=== PATIENT | female | born 1965 | race Caucasian/White ===

== ENCOUNTER → 2016-10-20 | Outpatient (CLI) | payer MEDICARE, MEDICAID ==
[~2016-10-20] MED LIST: /CELE20CA OR; /DULO30CA OR; ACET50TA PO; ALBU17IN INH; AMBI10TA OR; ATOR80TA14 PO; CETI10TA OR; CHLO25TA3 PO; CIPR250T2 PO; CORE25TA OR; COREG; DIAZ5TAB OR; DIAZ5TAB PO; FENT12PA TOP; GEOD20CA14 OR; IMDU60TA; LABETALOL; LASI20TA; LISI20TA5; LISI20TA5 OR; LYRI150C OR; NORC5TAB PO; OMEP20CA3 PO; OXYC-208 PO; OXYC-517 PO; OXYC5CAP28 PO; PERC7.5T8; PRENATAL VITAMIN; PROA1AER IN; SALI0.653; SPIR25TA2; SPIR25TA2 OR; VICO5TAB16 PO; [UNRECOGNIZED DRUG - CODE] PO; [UNRECOGNIZED DRUG - OTHER] TOP; ambien OR; chlorthalidone PO; flonase; lamictal PO; lamotrigine OR; loratadine OR; nucynta PO
--- NOTE | 2016-10-21 01:23 | ECWPNPC ---
PATIENT NAME: SINGH RAVI : 1965 GENDER: FEMALE VISIT DATE: 10/20/2016 DISCHARGE DATE: 10/20/16 1145 VISIT LOCKED DATE TIME: PHYSICIAN: EDA KHAN PHYSICIAN PAGER NO: [phone] RESOURCE: EDA KHAN REASON FOR APPOINTMENT 1. FOLLOWUP-BACK HISTORY OF PRESENT ILLNESS HISTORY OF PRESENT ILLNESS: HERE FOR F/U OF CHRONIC LBP AND RIGHT LEG PAIN.RATING PAIN VAS 5/10.USING FENTANYL PATCH 25MCG Q72H, LYRICA 200MG TID AND OXYCODONE 5MG PRN WITH MDD2.RECENT URINE TOX. REVIEWED TODAY AND WNL.BRINGS MEDICINE INTO CLINIC WHICH IS APPROPRIATE FOR WHAT WAS DISPENSED.FINDS MEDICINE EFFECTIVE AT REDUCING PAIN AND KEEPING HER COMFORTABLE.DENIES ADVERSE EFFECTS WITH MEDICATION. PAIN THE PATIENT DESCRIBES THE PAIN... THE PATIENT DESCRIBES THE PAIN... THE PATIENT DESCRIBES THE PAIN... THE PATIENT DESCRIBES THE PAIN... FALL RISK SCREENING: SCREENING :NO FALLS IN THE PAST YEAR CURRENT MEDICATIONS TAKING ALBUTEROL SULFATE HFA 108 (90 BASE) MCG/ACT AEROSOL SOLUTION 2 PUFFS INHALATION EVERY 4 HRS NEEDED, NOTES: NONE TAKING ATORVASTATIN CALCIUM 80 MG TABLET 1 TABLET ORALLY ONCE A DAY, NOTES: 2 WEEKS TAKING COREG 25 MG TABLET [address] SOUSA ORALLY TWICE A DAY, NOTES: 12-25-15699 TAKING LISINOPRIL 20 MG TABLET [address] SOUSA ORALLY TWICE DAILY, NOTES: 12-24-15699 TAKING SPIRONOLACTONE 25 MG TABLET [address] SOUSA ORALLY ONCE A DAY, NOTES: 12-24-15699 TAKING CHLORTHALIDONE 25 MG TABLET 1/2 TABLET IN THE MORNING DR SOUSA ORALLY ONCE A DAY, NOTES: 12-25-15699 TAKING FLONASE 50 MCG/ACT SUSPENSION 1 SPRAY IN EACH NOSTRIL NASALLY ONCE A DAY TAKING HYDROXYZINE PAMOATE 50 MG CAPSULE 1 CAPSULE NEEDED ORALLY EVERY 6 HRS NEEDED TAKING GABAPENTIN 300 MG CAPSULE 1 CAPSULE ORALLY THREE TIMES A DAY TAKING LORATADINE 10 MG TABLET TAKE ONE TABLET BY MOUTH ONCE DAILY TAKING LYRICA 200 MG CAPSULE 1 CAPSULE ORALLY THREE TIMES DAILY...MDD 3, NOTES: 12-25-15699 TAKING CANE - MISCELLANEOUS DIRECTED DX=M54.16 DIRECTED TAKING OMEPRAZOLE 20 MG CAPSULE DELAYED RELEASE TAKE ONE CAPSULE BY MOUTH 30 MINUTES BEFORE A MEAL ONCE DAILY TAKING OXYCODONE HCL 5 MG TABLET 1 ORALLY Q6H MDD 2, NOTES: 12-24-15 200 TAKING FENTANYL 25 MCG/HR PATCH 72 HOUR 1 PATCH TO SKIN TRANSDERMAL MDD 1 PATCH Q72H =MDD, NOTES: 12-24-151999 TAKING OMEPRAZOLE 20 MG CAPSULE DELAYED RELEASE 1 CAPSULE 30 MIN BEFORE MEAL ORALLY ONCE A DAY, NOTES: 12-25-15 0700 NOT-TAKING TENS UNIT DIRECTED NOT-TAKING OMEPRAZOLE 20 MG UNSPECIFIED 1 CAPSULE 30 MIN BEFORE MEAL ORALLY ONCE A DAY PAST MEDICAL HISTORY HYPERTENSION CHRONIC BACK PAIN, LUMBAR -DEG DISC DISEASE, DEPRESSION ANXIETY ALLERGIES, SEASONAL, ENVIRONMENTAL POST PARTEM CONGESTIVE HEART FAILURE 2009 - DR SOUSA ECHO 08/02 - NL OBESITY POOR DENTITION CHRONIC LEUKOCYTOSIS () ELEVATED PTT FIBROMYALGIA CARPAL TUNNEL FACTOR 8 DEFICIENCY ALLERGIES CODEINE SULFATE: HIVES: ALLERGY BUTRAN TRANSDERMAL PATCH: HIVES: ALLERGY SOCIAL HISTORY GENERAL: TOBACCO USE ARE YOU A:NONSMOKER LEARNING BARRIERS / SPECIAL NEEDS ORIENTED TO PLAN OF CARE: PATIENT, PAIN MANAGEMENT PATIENT, ORIENTED TO PLAN OF CARE: PATIENT, PAIN MANAGEMENT PATIENT. NEW PATIENT PAIN DIARY TODAY'S VISITNOTES FROM 0-10, WHAT LEVEL IS YOUR PAIN TODAY?0 PAIN CLINIC PFS, CLERGY, PUBLIC HEALTH REFERRALS PFS REFERRAL NEEDED?NO CLERGY REFERRAL NEEDED?NO PUBLIC HEALTH REFERRAL NEEDED?NO WAS THE PROVIDER NOTIFIED OF ANY PERTINENT INFO?NO PFS REFERRAL NEEDED?NO CLERGY REFERRAL NEEDED?NO PUBLIC HEALTH REFERRAL NEEDED?NO WAS THE PROVIDER NOTIFIED OF ANY PERTINENT INFO?NO REVIEW OF SYSTEMS CONSTITUTIONAL: ANY CHANGE IN YOUR MEDICAL CONDITION? NO . CHILLS NO . FEVER NO . INFECTION: DO YOU HAVE NEW INFECTIONS? NO . DO YOU HAVE HISTORY OF MRSA? NO . MUSCULOSKELETAL: ANY NEW PATTERNS OF PAIN OR NUMBNESS? NO . GASTROENTEROLOGY: ANY NEW CHANGE IN BOWEL CONTROL? NO . GENITOURINARY: ANY NEW CHANGE IN BLADDER CONTROL? NO . IS THERE A CHANCE YOU COULD BE ? NO . HEMATOLOGY/LYMPH: DO YOU TAKE ANY BLOOD THINNERS? (FOR EXAMPLE- COUMADIN, PLAVIX, AGGRENOX, PLATEL, PRADAXA, OR XARELTO) NO . WHEN WAS YOUR LAST DOSE? DATE: TIME: . NEUROLOGY: HAVE YOU FALLEN IN THE PAST 6 MONTHS? NO . ANY NEW EXTREMITY NUMBNESS OR WEAKNESS? NO . CARDIOLOGY: DO YOU HAVE A PACEMAKER OR DEFIBRILLATOR? NO . RESPIRATORY: HAVE YOU BEEN SICK IN THE PAST WEEK? NO . FEVER NO . FLU LIKE SYMPTOMS? NO . COUGH NO . INTEGUMENTARY: DO YOU HAVE ANY RASHES OR OPEN SORES? NO . ALLERGIC/IMMUNO: ARE YOU ALLERGIC TO SHELLFISH OR IV DYE? NO . ANY NEW ALLERGIES? NO . PSYCHIATRIC: DO YOU HAVE THOUGHTS OF HURTING YOURSELF OR SOMEONE ELSE? NO . ARE YOU ABUSED, NEGLECTED, OR IN AN UNSAFE ENVIRONMENT? NO . ENDOCRINOLOGY: ARE YOU DIABETIC? NO . OTHER: DO YOU NEED ANY PRESCRIPTIONS? NO . IF YES, PLEASE LIST: ____ . ANY NEW PROBLEMS WITH YOUR MEDICATIONS? NO . WHEN DID YOU LAST EAT? ____ . WHEN DID YOU LAST DRINK? ____ . WHAT DID YOU LAST DRINK? ____ . NAME OF PERSON DRIVING YOU HOME? ____ . DO YOU HAVE ANY OTHER QUESTIONS OR CONCERNS NO . REVIEWED BY: PROVIDER: EDA MCCLELLAN . VITAL SIGNS WT 183 LBS, HT 64.5 IN, BMI 30.92 INDEX, BP 140/78 MM HG, HR 71 /MIN, RR 18 /MIN, TEMP 97 F,4 F, OXYGEN SAT % 96, REVIEWED BY: KG. EXAMINATION GENERAL EXAMINATION: LUNGS:LUNG SOUNDS ARE CLEAR. HEART:HEART RATE REGULAR. MUSCULOSKELETAL:*. MUSCULOSKELETAL:*, MUSCLE STRENGTH TESTING 2/5 RIGHT,5/5 LEFT ., PALPATION: POSITIVE FOR PAIN OVER L/S SPINE. POSITIVE FOR PAIN OVER L/S PARSPINALS. RANGE OF MOTION OF SPINE W INCREASE PAIN. DIAGNOSTIC: . ASSESSMENTS POST LAMINECTOMY SYNDROME - M96.1 (PRIMARY) CHRONIC PRESCRIPTION OPIATE USE - Z79.891 TREATMENT POST LAMINECTOMY SYNDROME REFILL OXYCODONE HCL TABLET, 5 MG, 1, ORALLY, Q6H MDD 2, 30 DAY(S), 60, REFILLS 0, NOTES: 12-24-15 200 REFILL FENTANYL PATCH 72 HOUR, 25 MCG/HR, 1 PATCH TO SKIN, TRANSDERMAL, MDD 1 PATCH Q72H =MDD, 30 DAY(S), 10, REFILLS 0, NOTES: 12-24-151999 PROCEDURE CODES FA211 ESTABILISHED PATIENT [facility] FACILITY CHARGE G8730 PAIN ASSESS POS TOOL F/U PLAN DOC G8427 DOC MEDS VERIFIED W/PT OR RE FOLLOW UP 2 MONTHS ELECTRONICALLY SIGNED BY VY LAL ON 10/20/2016 AT 11:44 AM EST DISCLAIMER : THIS IS A VISIT SUMMARY EXTRACTED FROM THE [employer] CHART. IT IS NOT A COPY OF THE [employer] PROGRESS NOTE. TARIK
== END ==
LOC: M PAIN 11:00
PROVIDERS: ATTEND Nurse Practitioner Family
DX: M96.1 Postlaminectomy syndrome, not elsewhere classified (principal); M54.5 Low back pain; M79.604 Pain in right leg; G89.29 Other chronic pain; Z79.891 Long term (current) use of opiate analgesic; Z79.899 Other long term (current) drug therapy; I10 Essential (primary) hypertension; F32.9 Major depressive disorder, single episode, unspecified; F41.9 Anxiety disorder, unspecified; E66.9 Obesity, unspecified; I50.9 Heart failure, unspecified; M79.7 Fibromyalgia; D72.829 Elevated white blood cell count, unspecified; D68.4 Acquired coagulation factor deficiency; Z88.5 Allergy status to narcotic agent; Z88.6 Allergy status to analgesic agent

== ENCOUNTER → 2017-01-06 | Outpatient (CLI) | payer MEDICARE, MEDICAID ==
[~2017-01-06] MED LIST changes: +CYCL10TA PO
--- NOTE | 2017-01-15 23:41 | ECWPNPC ---
PATIENT NAME: SINGH RAVI : 1965 GENDER: FEMALE VISIT DATE: 01/06/2017 DISCHARGE DATE: 01/06/17 1045 VISIT LOCKED DATE TIME: PHYSICIAN: EDA KHAN PHYSICIAN PAGER NO: [phone] RESOURCE: EDA KHAN REASON FOR APPOINTMENT 1. BACK HISTORY OF PRESENT ILLNESS HISTORY OF PRESENT ILLNESS: HERE FOR F/U OF CHRONIC LBP AND RIGHT LEG PAIN.RATING PAIN VAS 6/10.USING FENTANYL PATCH 25MCG Q72H, LYRICA 200MG TID AND OXYCODONE 5MG PRN WITH MDD2.BRINGS MEDICINE INTO CLINIC WHICH IS APPROPRIATE FOR WHAT WAS DISPENSED.FINDS MEDICINE EFFECTIVE AT REDUCING PAIN AND KEEPING HER COMFORTABLE.DENIES ADVERSE EFFECTS WITH MEDICATION. PAIN THE PATIENT DESCRIBES THE PAIN... THE PATIENT DESCRIBES THE PAIN... THE PATIENT DESCRIBES THE PAIN... THE PATIENT DESCRIBES THE PAIN... THE PATIENT DESCRIBES THE PAIN... FALL RISK SCREENING: SCREENING :NO FALLS IN THE PAST YEAR CURRENT MEDICATIONS TAKING ALBUTEROL SULFATE HFA 108 (90 BASE) MCG/ACT AEROSOL SOLUTION 2 PUFFS INHALATION EVERY 4 HRS NEEDED TAKING ATORVASTATIN CALCIUM 80 MG TABLET 1 TABLET ORALLY ONCE A DAY TAKING COREG 25 MG TABLET [address] SOUSA ORALLY TWICE A DAY TAKING SPIRONOLACTONE 25 MG TABLET [address] SOUSA ORALLY ONCE A DAY TAKING CHLORTHALIDONE 25 MG TABLET 1/[address]T IN THE MORNING [address] SOUSA ORALLY ONCE A DAY TAKING FLONASE 50 MCG/ACT SUSPENSION 1 SPRAY IN EACH NOSTRIL NASALLY ONCE A DAY TAKING HYDROXYZINE PAMOATE 50 MG CAPSULE 1 CAPSULE NEEDED ORALLY EVERY 6 HRS NEEDED TAKING GABAPENTIN 300 MG CAPSULE 1 CAPSULE ORALLY THREE TIMES A DAY TAKING CANE - MISCELLANEOUS DIRECTED DX=M54.16 DIRECTED TAKING OMEPRAZOLE 20 MG CAPSULE DELAYED RELEASE 1 CAPSULE 30 MIN BEFORE MEAL ORALLY ONCE A DAY TAKING LISINOPRIL 20 MG TABLET [address] SOUSA ORALLY TWICE DAILY TAKING LORATADINE 10 MG TABLET TAKE ONE TABLET BY MOUTH ONCE DAILY ORALLY DAILY TAKING OXYCODONE HCL 5 MG TABLET 1 ORALLY Q6H MDD 2 TAKING FENTANYL 25 MCG/HR PATCH 72 HOUR 1 PATCH TO SKIN TRANSDERMAL MDD 1 PATCH Q72H =MDD TAKING LYRICA 200 MG CAPSULE 1 CAPSULE ORALLY THREE TIMES DAILY...MDD 3 NOT-TAKING OMEPRAZOLE 20 MG CAPSULE DELAYED RELEASE TAKE ONE CAPSULE BY MOUTH 30 MINUTES BEFORE A MEAL ONCE DAILY NOT-TAKING TENS UNIT DIRECTED NOT-TAKING OMEPRAZOLE 20 MG UNSPECIFIED 1 CAPSULE 30 MIN BEFORE MEAL ORALLY ONCE A DAY MEDICATION LIST REVIEWED AND RECONCILED WITH THE PATIENT PAST MEDICAL HISTORY HYPERTENSION CHRONIC BACK PAIN, LUMBAR -DEG DISC DISEASE, DEPRESSION ANXIETY ALLERGIES, SEASONAL, ENVIRONMENTAL POST PARTEM CONGESTIVE HEART FAILURE 2009 - DR SOUSA ECHO 08/02 - NL OBESITY POOR DENTITION CHRONIC LEUKOCYTOSIS ( - ) ELEVATED PTT FIBROMYALGIA CARPAL TUNNEL FACTOR 8 DEFICIENCY ALLERGIES CODEINE SULFATE: HIVES: ALLERGY BUTRAN TRANSDERMAL PATCH: HIVES: ALLERGY SOCIAL HISTORY GENERAL: PAIN CLINIC PFS, CLERGY, PUBLIC HEALTH REFERRALS CLERGY REFERRAL NEEDED?NO WAS THE PROVIDER NOTIFIED OF ANY PERTINENT INFO?NO PFS REFERRAL NEEDED?NO PUBLIC HEALTH REFERRAL NEEDED?NO PATIENT: ____. REVIEW OF SYSTEMS CONSTITUTIONAL: ANY CHANGE IN YOUR MEDICAL CONDITION? NO . CHILLS NO . FEVER NO . INFECTION: DO YOU HAVE NEW INFECTIONS? NO . DO YOU HAVE HISTORY OF MRSA? NO . MUSCULOSKELETAL: ANY NEW PATTERNS OF PAIN OR NUMBNESS? NO . GASTROENTEROLOGY: ANY NEW CHANGE IN BOWEL CONTROL? NO . GENITOURINARY: ANY NEW CHANGE IN BLADDER CONTROL? NO . IS THERE A CHANCE YOU COULD BE ? NO . HEMATOLOGY/LYMPH: DO YOU TAKE ANY BLOOD THINNERS? (FOR EXAMPLE- COUMADIN, PLAVIX, AGGRENOX, PLATEL, PRADAXA, OR XARELTO) NO . WHEN WAS YOUR LAST DOSE? DATE: TIME: . NEUROLOGY: HAVE YOU FALLEN IN THE PAST 6 MONTHS? NO . ANY NEW EXTREMITY NUMBNESS OR WEAKNESS? NO . CARDIOLOGY: DO YOU HAVE A PACEMAKER OR DEFIBRILLATOR? NO . RESPIRATORY: HAVE YOU BEEN SICK IN THE PAST WEEK? NO . FEVER NO . FLU LIKE SYMPTOMS? NO . COUGH NO . INTEGUMENTARY: DO YOU HAVE ANY RASHES OR OPEN SORES? NO . ALLERGIC/IMMUNO: ARE YOU ALLERGIC TO SHELLFISH OR IV DYE? NO . ANY NEW ALLERGIES? NO . PSYCHIATRIC: DO YOU HAVE THOUGHTS OF HURTING YOURSELF OR SOMEONE ELSE? NO . ARE YOU ABUSED, NEGLECTED, OR IN AN UNSAFE ENVIRONMENT? NO . ENDOCRINOLOGY: ARE YOU DIABETIC? NO . OTHER: DO YOU NEED ANY PRESCRIPTIONS? YES . IF YES, PLEASE LIST: ?LYRICA . ANY NEW PROBLEMS WITH YOUR MEDICATIONS? NO . WHEN DID YOU LAST EAT? ____ . WHEN DID YOU LAST DRINK? ____ . WHAT DID YOU LAST DRINK? ____ . NAME OF PERSON DRIVING YOU HOME? ____ . DO YOU HAVE ANY OTHER QUESTIONS OR CONCERNS NO . REVIEWED BY: PROVIDER: EDA MCCLELLAN . VITAL SIGNS WT 180 LBS, HT 64.5 IN, BMI 30.42 INDEX, BP 117/62 MM HG, HR 78 /MIN, RR 18 /MIN, TEMP 98.1 F, OXYGEN SAT % 97%, REVIEWED BY: DONE AT 1017. EXAMINATION GENERAL EXAMINATION: LUNGS:LUNG SOUNDS ARE CLEAR. HEART:HEART RATE REGULAR. MUSCULOSKELETAL:*. MUSCULOSKELETAL:*, MUSCLE STRENGTH TESTING 2/5 RIGHT,5/5 LEFT ., PALPATION: POSITIVE FOR PAIN OVER L/S SPINE. POSITIVE FOR PAIN OVER L/S PARSPINALS. RANGE OF MOTION OF SPINE W INCREASE PAIN. DIAGNOSTIC: . ASSESSMENTS POST LAMINECTOMY SYNDROME - M96.1 (PRIMARY) CHRONIC PRESCRIPTION OPIATE USE - Z79.891 TREATMENT POST LAMINECTOMY SYNDROME REFILL OXYCODONE HCL TABLET, 5 MG, 1, ORALLY, Q6H MDD 2, 30 DAY(S), 60, REFILLS 0 REFILL FENTANYL PATCH 72 HOUR, 25 MCG/HR, 1 PATCH TO SKIN, TRANSDERMAL, MDD 1 PATCH Q72H =MDD, 30 DAY(S), 10, REFILLS 0 REFILL LYRICA CAPSULE, 200 MG, 1 CAPSULE, ORALLY, THREE TIMES DAILY...MDD 3, 30 DAY(S), 90, REFILLS 2 NOTES: ISTOP REGISTRY REVIEWED AND DEMNOSTRATES COMPLLIANCE. BRINGS IN MEDICATIONS WHICH IS APPROPRIATE FOR WHAT WAS DISPENSED. RECENT URINE TOXICOLOGY REVIEWED. NO UNAUTHORIZED MEDICATIONS. NO ILLICIT SUBSTANCES AND PRESCRIBED MEDICATIONS WERE PRESENT. , RISKS AND BENEFITS OF NARCOTIC/OPIOD MEDICATIONS WERE REVIEWED WITH PATIENT - THIS INCLUDES BUT IS NOT LIMITED TO RISK OF DEPENDANCE/DEVELOPMENT OF ADDICTION, MOOD DISTURBANCE AND DEPRESSION, OSTEOPOROSIS, HORMONAL AND LABIDAL CHANGES, RESPIRATORY DEPRESSION AND . PATIENT IS ADVISED NOT TO DRIVE WHILE ON THESE MEDICATIONS.URINETOX. TODAY. PROCEDURE CODES G8730 PAIN ASSESS POS TOOL F/U PLAN DOC G8427 DOC MEDS VERIFIED W/PT OR RE FA211 ESTABILISHED PATIENT [facility] FACILITY CHARGE DISPOSITION & COMMUNICATION FOLLOW UP 2 MONTHS ELECTRONICALLY SIGNED BY VY LAL ON 01/15/2017 AT 04:57 PM EDT DISCLAIMER : THIS IS A VISIT SUMMARY EXTRACTED FROM THE [employer] CHART. IT IS NOT A COPY OF THE [employer] PROGRESS NOTE. TARIK
== END | disposition home or self-care (01) ==
LOC: M PAIN 10:20
PROVIDERS: ATTEND Nurse Practitioner Family
DX: G89.29 Other chronic pain (principal); M96.1 Postlaminectomy syndrome, not elsewhere classified; I10 Essential (primary) hypertension; F33.9 Major depressive disorder, recurrent, unspecified; F41.9 Anxiety disorder, unspecified; M79.7 Fibromyalgia; E66.9 Obesity, unspecified; I50.9 Heart failure, unspecified; D72.829 Elevated white blood cell count, unspecified; Z79.899 Other long term (current) drug therapy; Z88.2 Allergy status to sulfonamides; Z88.5 Allergy status to narcotic agent

== ENCOUNTER 2017-01-12 18:29 | Emergency (ER) | payer MEDICARE, MEDICAID ==
[~2017-01-12] VITALS: Ht 162.6 cm; Wt 77.1 kg
[2017-01-12 18:29] VITALS: BP 106/64
[~2017-01-12 18:29] MED LIST changes: -CYCL10TA PO
[2017-01-12] MEDS ORDERED: OXYC-517 PO (18:49)
[2017-01-12] MEDS ORDERED: KETOROLAC 60 MG/2 ML VIAL (J1885) IM ONE (19:15)
[2017-01-12] MEDS ORDERED: CYCL10TA PO (19:32)
== END 2017-01-12 19:38 | disposition home or self-care (01) ==
LOC: M ED 19:20
DX: G89.29 Other chronic pain (principal); M54.5 Low back pain; J45.909 Unspecified asthma, uncomplicated; Z79.899 Other long term (current) drug therapy; Z79.51 Long term (current) use of inhaled steroids; Z88.5 Allergy status to narcotic agent; Z88.8 Allergy status to other drugs, medicaments and biological substances; F17.210 Nicotine dependence, cigarettes, uncomplicated
CPT/HCPCS: 96372; 99281; J1885; J3360

== ENCOUNTER → 2017-03-02 | Outpatient (CLI) | payer MEDICARE, MEDICAID ==
[~2017-03-02] MED LIST changes: +CYCL10TA PO
--- NOTE | 2017-03-03 00:57 | ECWPNPC ---
PATIENT NAME: SINGH RAVI : 1965 GENDER: FEMALE VISIT DATE: 03/02/2017 DISCHARGE DATE: 03/02/17927 VISIT LOCKED DATE TIME: PHYSICIAN: EDA KHAN PHYSICIAN PAGER NO: [phone] RESOURCE: EDA KHAN REASON FOR APPOINTMENT 1. BACK HISTORY OF PRESENT ILLNESS HISTORY OF PRESENT ILLNESS: HERE FOR F/U OF CHRONIC LBP AND RIGHT LEG PAIN.RATING PAIN VAS 6/10.USING FENTANYL PATCH 25MCG Q72H, LYRICA 200MG TID AND OXYCODONE 5MG PRN WITH MDD2.BRINGS MEDICINE INTO CLINIC WHICH IS APPROPRIATE FOR WHAT WAS DISPENSED.FINDS MEDICINE EFFECTIVE AT REDUCING PAIN AND KEEPING HER COMFORTABLE.DENIES ADVERSE EFFECTS WITH MEDICATION. PAIN THE PATIENT DESCRIBES THE PAIN... THE PATIENT DESCRIBES THE PAIN... THE PATIENT DESCRIBES THE PAIN... THE PATIENT DESCRIBES THE PAIN... THE PATIENT DESCRIBES THE PAIN... THE PATIENT DESCRIBES THE PAIN... PAIN THE PATIENT DESCRIBES THE PAIN... THE PATIENT DESCRIBES THE PAIN... THE PATIENT DESCRIBES THE PAIN... THE PATIENT DESCRIBES THE PAIN... THE PATIENT DESCRIBES THE PAIN... THE PATIENT DESCRIBES THE PAIN... FALL RISK SCREENING: SCREENING :NO FALLS IN THE PAST YEAR CURRENT MEDICATIONS TAKING ALBUTEROL SULFATE HFA 108 (90 BASE) MCG/ACT AEROSOL SOLUTION 2 PUFFS INHALATION EVERY 4 HRS NEEDED TAKING ATORVASTATIN CALCIUM 80 MG TABLET 1 TABLET ORALLY ONCE A DAY TAKING COREG 25 MG TABLET [address] SOUSA ORALLY TWICE A DAY TAKING SPIRONOLACTONE 25 MG TABLET [address] SOUSA ORALLY ONCE A DAY TAKING CHLORTHALIDONE 25 MG TABLET 1/[address]T IN THE MORNING DR SOUSA ORALLY ONCE A DAY TAKING FLONASE 50 MCG/ACT SUSPENSION 1 SPRAY IN EACH NOSTRIL NASALLY ONCE A DAY TAKING HYDROXYZINE PAMOATE 50 MG CAPSULE 1 CAPSULE NEEDED ORALLY EVERY 6 HRS NEEDED TAKING GABAPENTIN 300 MG CAPSULE 1 CAPSULE ORALLY THREE TIMES A DAY TAKING CANE - MISCELLANEOUS DIRECTED DX=M54.16 DIRECTED TAKING OMEPRAZOLE 20 MG CAPSULE DELAYED RELEASE 1 CAPSULE 30 MIN BEFORE MEAL ORALLY ONCE A DAY TAKING LISINOPRIL 20 MG TABLET [address] SOUSA ORALLY TWICE DAILY TAKING LORATADINE 10 MG TABLET TAKE ONE TABLET BY MOUTH ONCE DAILY ORALLY DAILY TAKING OXYCODONE HCL 5 MG TABLET 1 ORALLY Q6H MDD 2 TAKING FENTANYL 25 MCG/HR PATCH 72 HOUR 1 PATCH TO SKIN TRANSDERMAL MDD 1 PATCH Q72H =MDD TAKING LYRICA 200 MG CAPSULE 1 CAPSULE ORALLY THREE TIMES DAILY...MDD 3 TAKING FLUTICASONE PROPIONATE 50 MCG/ACT SUSPENSION INSTILL 1 SPRAY IN EACH NOSTRIL ONCE DAILY NOT-TAKING OMEPRAZOLE 20 MG CAPSULE DELAYED RELEASE TAKE ONE CAPSULE BY MOUTH 30 MINUTES BEFORE A MEAL ONCE DAILY NOT-TAKING TENS UNIT DIRECTED NOT-TAKING OMEPRAZOLE 20 MG UNSPECIFIED 1 CAPSULE 30 MIN BEFORE MEAL ORALLY ONCE A DAY PAST MEDICAL HISTORY HYPERTENSION CHRONIC BACK PAIN, LUMBAR -DEG DISC DISEASE, DEPRESSION ANXIETY ALLERGIES, SEASONAL, ENVIRONMENTAL POST PARTEM CONGESTIVE HEART FAILURE 2009 - DR SOUSA ECHO 08/02 - NL OBESITY POOR DENTITION CHRONIC LEUKOCYTOSIS () ELEVATED PTT FIBROMYALGIA CARPAL TUNNEL FACTOR 8 DEFICIENCY ALLERGIES CODEINE SULFATE: HIVES: ALLERGY BUTRAN TRANSDERMAL PATCH: HIVES: ALLERGY SURGICAL HISTORY T & A 70'S D&C 90'S CATARACT-LENS IMPLANTS , SKIN LESION EXCISION -BENIGN, DR Lan ALFREDO 12/31 LAMINECTOMY L 3-L4 AND L4-L5 WITH SPINAL FUSION 01-01-14 LIPOMA LOWER R BACK HEMATOMA - FAMILY HISTORY FATHER: 50 YRS MOTHER: ALIVE 71 YRS 1 BROTHER(S) - HEALTHY. 1 SON(S) , 1 DAUGHTER(S) - HEALTHY. DAD-ALCOHOLIC, FROM [place]. SOCIAL HISTORY GENERAL: TOBACCO USE ARE YOU A:CURRENT SMOKER HOW MANY CIGARETTES A DAY DO YOU SMOKE?11-20 HOW OFTEN DO YOU SMOKE CIGARETTES?EVERY DAY PATIENT COUNSELED ON THE DANGERS OF TOBACCO USE AND URGED TO QUIT:03/02/2017 ARE YOU INTERESTED IN QUITTING?NOT READY TO QUIT COUNSELED THE PATIENT ON SMOKING EFFECTS, EDUCATION [id number]/13/2017 CAFFEINE CAFFEINE USE?YES HOW OFTEN AND HOW MUCH? 3-5 DRINKS PER DAY LEARNING BARRIERS / SPECIAL NEEDS BARRIERS TO LEARNING?NO LEARNING PREFERENCES?NO PAIN CLINIC PFS, CLERGY, PUBLIC HEALTH REFERRALS PFS REFERRAL NEEDED?NO CLERGY REFERRAL NEEDED?NO PUBLIC HEALTH REFERRAL NEEDED?NO WAS THE PROVIDER NOTIFIED OF ANY PERTINENT INFO?YES HAS THE PATIENT BEEN EDUCATED REGARDING HIS/HER PLAN OF CARE?YES HAS THE PATIENT BEEN EDUCATED REGARDING PAIN, THE RISK FOR PAIN, THE IMPORTANCE OF EFFECTIVE PAIN MANAGEMENT, AND THE PAIN ASSESSMENT PROCESS?YES REVIEWED BY: ARIEL. PATIENT: ____. ADVANCE DIRECTIVES HEALTH CARE PROXY?YES NAME OF HCP SPOUSE ALEX RAVI [phone] HOSPITALIZATION/MAJOR DIAGNOSTIC PROCEDURE EMERGENCY , DUE TO CHF 2009 REVIEW OF SYSTEMS CONSTITUTIONAL: ANY CHANGE IN YOUR MEDICAL CONDITION? NO . CHILLS NO . FEVER NO . INFECTION: DO YOU HAVE NEW INFECTIONS? NO . DO YOU HAVE HISTORY OF MRSA? NO . MUSCULOSKELETAL: ANY NEW PATTERNS OF PAIN OR NUMBNESS? NO . GASTROENTEROLOGY: ANY NEW CHANGE IN BOWEL CONTROL? NO . GENITOURINARY: ANY NEW CHANGE IN BLADDER CONTROL? NO . IS THERE A CHANCE YOU COULD BE ? NO . HEMATOLOGY/LYMPH: DO YOU TAKE ANY BLOOD THINNERS? (FOR EXAMPLE- COUMADIN, PLAVIX, AGGRENOX, PLATEL, PRADAXA, OR XARELTO) NO . WHEN WAS YOUR LAST DOSE? DATE: TIME: . NEUROLOGY: HAVE YOU FALLEN IN THE PAST 6 MONTHS? NO . ANY NEW EXTREMITY NUMBNESS OR WEAKNESS? NO . CARDIOLOGY: DO YOU HAVE A PACEMAKER OR DEFIBRILLATOR? NO . RESPIRATORY: HAVE YOU BEEN SICK IN THE PAST WEEK? NO . FEVER NO . FLU LIKE SYMPTOMS? NO . COUGH NO . INTEGUMENTARY: DO YOU HAVE ANY RASHES OR OPEN SORES? NO . ALLERGIC/IMMUNO: ARE YOU ALLERGIC TO SHELLFISH OR IV DYE? NO . ANY NEW ALLERGIES? NO . PSYCHIATRIC: DO YOU HAVE THOUGHTS OF HURTING YOURSELF OR SOMEONE ELSE? NO . ARE YOU ABUSED, NEGLECTED, OR IN AN UNSAFE ENVIRONMENT? NO . ENDOCRINOLOGY: ARE YOU DIABETIC? NO . OTHER: DO YOU NEED ANY PRESCRIPTIONS? YES, FENTANYL AND OXYCODONE . IF YES, PLEASE LIST: ____ . ANY NEW PROBLEMS WITH YOUR MEDICATIONS? NO . WHEN DID YOU LAST EAT? 03/01/17 . WHEN DID YOU LAST DRINK? ____NOW . WHAT DID YOU LAST DRINK? ____PEPSI . NAME OF PERSON DRIVING YOU HOME? ____ . DO YOU HAVE ANY OTHER QUESTIONS OR CONCERNS PT IS A CURRENT SMOKER, REFUSING ANY SMOKING CESSATION COUSELING AT THIS TIME. . REVIEWED BY: PROVIDER: EDA MCCLELLAN . VITAL SIGNS WT 180.0 LBS, HT 64.5 IN, BMI 30.42 INDEX, BP 133/79 MM HG, HR 76 /MIN, RR 16 /MIN, TEMP 98.0 F, OXYGEN SAT % 98%, SAFE IN ENV? (Y/N) Y, NA INITIALS TL 0874, REVIEWED BY: ARIEL. EXAMINATION GENERAL EXAMINATION: LUNGS:LUNG SOUNDS ARE CLEAR. HEART:HEART RATE REGULAR. MUSCULOSKELETAL:*. MUSCULOSKELETAL:*, MUSCLE STRENGTH TESTING 2/5 RIGHT,5/5 LEFT ., PALPATION: POSITIVE FOR PAIN OVER L/S SPINE. POSITIVE FOR PAIN OVER L/S PARSPINALS. RANGE OF MOTION OF SPINE W INCREASE PAIN. DIAGNOSTIC: . ASSESSMENTS POST LAMINECTOMY SYNDROME - M96.1 (PRIMARY) CHRONIC PRESCRIPTION OPIATE USE - Z79.891 TREATMENT POST LAMINECTOMY SYNDROME REFILL OXYCODONE HCL TABLET, 5 MG, 1, ORALLY, Q6H MDD 2, 30 DAY(S), 60, REFILLS 0 REFILL FENTANYL PATCH 72 HOUR, 25 MCG/HR, 1 PATCH TO SKIN, TRANSDERMAL, MDD 1 PATCH Q72H =MDD, 30 DAY(S), 10, REFILLS 0 CONTINUE LYRICA CAPSULE, 200 MG, 1 CAPSULE, ORALLY, THREE TIMES DAILY...MDD 3 NOTES: ISTOP REGISTRY REVIEWED AND DEMNOSTRATES COMPLLIANCE. BRINGS IN MEDICATIONS WHICH IS APPROPRIATE FOR WHAT WAS DISPENSED. RECENT URINE TOXICOLOGY REVIEWED. NO UNAUTHORIZED MEDICATIONS. NO ILLICIT SUBSTANCES AND PRESCRIBED MEDICATIONS WERE PRESENT. , RISKS AND BENEFITS OF NARCOTIC/OPIOD MEDICATIONS WERE REVIEWED WITH PATIENT - THIS INCLUDES BUT IS NOT LIMITED TO RISK OF DEPENDANCE/DEVELOPMENT OF ADDICTION, MOOD DISTURBANCE AND DEPRESSION, OSTEOPOROSIS, HORMONAL AND LABIDAL CHANGES, RESPIRATORY DEPRESSION AND . PATIENT IS ADVISED NOT TO DRIVE WHILE ON THESE MEDICATIONS, REVIEWED WITH PATIENT THE POTENTIAL RISK OF INCREASED SEDATION, RESPIRATORY SUPPRESSION AND WITH THE COMBINATION OF BENZODIAZAPINE AND OPIOD MEDICATIONS. PATIENT STATES HE UNDERSTANDS THIS RISK AND WISHES TO CONTINUE WITH THERAPY, # 226 TOBACCO USE SCREENING/INTERVENTION: PATIENT CURRENTLY USED TOBACCO. WAS OFFERED SMOKING CESSATION FOR GUIDANCE IN QUITTING THROUGH THE [facility] QUITS PROGRAM AND THE SAMARATIN CESSATION PROGRAM. , #128 - SCREENING BMI AND F/U PLAN IN : BMI ABOVE NORMAL TODAY. DISCUSSED WITH PATIENT NUTRITIONAL FOOD CHOICES TO ASSIST WITH WEIGHT LOSS. RECCOMMENDED REDUCING SALT, SUGAR, SODA INTAKE. RECOMMEND INCREASE ACTIVITY TO INCLUDE WALKING ON A REGULAR BASIS. PROFESSIONAL NUTRITIONAL NUTRITIONAL GUIDANCE WAS OFFERED AND WAS DECLINED. , PATIENT WAS ADVISED TO START A WALKING PROGRAM TO STRENGTHEN LUMBAR PARASPINAL MUSCLES AND IMPROVE MOBILITY. THEY WERE ADVISED THAT THIS WILL IMPROVE WEIGHT LOSS AND ALSO DEPRESSION/FIBROMYALGIA SYMPTOMS. ADVISED TO WALK 10 MINUTES EVERY OTHER DAY ON A FLAT SURFACE. EMPHASIZED THE IMPORTANCE OF DOING THIS CONSISTANTLY AND NOT SPORATICALLY TO AVOID INJURY. STRONG ADVISED NOT TO DO MORE THAN 10 MINUTES EVERY OTHER DSY FOR THE FIRST 4 WEEKS. PROCEDURE CODES FA211 ESTABILISHED PATIENT [facility] FACILITY CHARGE G8783 BP SCR PRFRM RCMDD DEFIND SCR INTVL G8730 PAIN ASSESS POS TOOL F/U PLAN DOC 3016F [place]CR[place] USE 1124F ACP DISCUSS-NO DSCNMKR DOCD G8427 DOC MEDS VERIFIED W/PT OR RE G8417 BMI >=30 CALCUATE W/FOLLOWUP 4004F PT TOBACCO SCREEN RCVD TLK DISPOSITION & COMMUNICATION FOLLOW UP 3 MONTHS ELECTRONICALLY SIGNED BY VY LAL ON 03/02/2017 AT 10:37 AM EDT DISCLAIMER : THIS IS A VISIT SUMMARY EXTRACTED FROM THE [employer] CHART. IT IS NOT A COPY OF THE [employer] PROGRESS NOTE. MTDD
== END ==
LOC: M PAIN 08:40
PROVIDERS: ATTEND Nurse Practitioner Family
DX: M96.1 Postlaminectomy syndrome, not elsewhere classified (principal); M54.5 Low back pain; M79.604 Pain in right leg; I10 Essential (primary) hypertension; F32.9 Major depressive disorder, single episode, unspecified; F41.9 Anxiety disorder, unspecified; J30.2 Other seasonal allergic rhinitis; J30.89 Other allergic rhinitis; D72.829 Elevated white blood cell count, unspecified; M79.7 Fibromyalgia; D66 Hereditary factor VIII deficiency; F17.210 Nicotine dependence, cigarettes, uncomplicated; Z88.5 Allergy status to narcotic agent; Z79.891 Long term (current) use of opiate analgesic; Z79.899 Other long term (current) drug therapy

== ENCOUNTER → 2017-04-05 | Outpatient (REF) | payer MEDICARE, MEDICAID ==
[~2017-04-05] MED LIST changes: -PROA1AER IN; +PROAAER10 IN; +SALI0.6523; -SALI0.653
[2017-04-05 18:29] LABS: ALBUMIN 3.9 GM/DL (3.2-5.2); ALBUMIN/GLOBULIN RATIO 1.39 (1.00-1.93); BILIRUBIN,TOTAL 0.3 MG/DL (0.2-1.0); CALCIUM LEVEL 8.8 MG/DL (8.5-10.1); CREATININE FOR GFR 1.24 MG/DL (0.55-1.02); FREE T4 0.85 NG/DL (0.76-1.46); GLOMERULAR FILTRATION RATE 48.7 (>51); POTASSIUM SERUM 3.9 MEQ/L (3.5-5.1); TOTAL PROTEIN 6.7 GM/DL (6.4-8.2)
[2017-04-05 19:51] LABS: MEAN CORPUSCULAR HEMOGLOBIN 30.9 pg (27.0-33.0); MEAN CORPUSCULAR HGB CONC 34.1 g/dl (32.0-36.5); MEAN CORPUSCULAR VOLUME 90.6 fl (80.0-96.0)
== END ==
LOC: M SFHCPLAZ 15:05
PROVIDERS: ATTEND Family Medicine
DX: F32.9 Major depressive disorder, single episode, unspecified (principal); I10 Essential (primary) hypertension; E78.2 Mixed hyperlipidemia; E55.9 Vitamin D deficiency, unspecified

== ENCOUNTER → 2017-05-25 | Outpatient (REF) | payer MEDICARE, MEDICAID ==
[2017-05-25 12:47] LABS: MEAN CORPUSCULAR HEMOGLOBIN 30.5 pg (27.0-33.0); MEAN CORPUSCULAR HGB CONC 35.1 g/dl (32.0-36.5); MEAN CORPUSCULAR VOLUME 86.9 fl (80.0-96.0); RETIC HEMOGLOBIN CONTENT CHr 31.4 PG (24-36)
[2017-05-25 12:51] LABS: ANION GAP 10 MEQ/L (8-16); BLOOD UREA NITROGEN 14 MG/DL (7-18); CALCIUM LEVEL 8.5 MG/DL (8.5-10.1); CARBON DIOXIDE LEVEL 27 MEQ/L (21-32); CHLORIDE LEVEL 93 MEQ/L (98-107); CREATININE FOR GFR 0.78 MG/DL (0.55-1.02); FERRITIN 38 NG/ML (8-252); GLOMERULAR FILTRATION RATE > 60.0 (>51); GLUCOSE, FASTING 85 MG/DL (70-105); PERCENT SATURATION 15.6 % (13.2-45.0); POTASSIUM SERUM 3.4 MEQ/L (3.5-5.1); SODIUM LEVEL 130 MEQ/L (136-145); TOTAL IRON BINDING CAPACITY 276 UG/DL (250-450)
== END ==
LOC: M SFHCPLAZ 09:40
PROVIDERS: ATTEND Family Medicine
DX: D64.9 Anemia, unspecified (principal); N18.3 Chronic kidney disease, stage 3 (moderate); F17.210 Nicotine dependence, cigarettes, uncomplicated

== ENCOUNTER → 2017-06-02 | Outpatient (CLI) | payer MEDICARE, MEDICAID ==
--- NOTE | 2017-06-03 01:01 | ECWPNPC ---
PATIENT NAME: SINGH RAVI : 1965 GENDER: FEMALE VISIT DATE: 06/02/2017 DISCHARGE DATE: 06/02/17 1120 VISIT LOCKED DATE TIME: PHYSICIAN: EDA KHAN PHYSICIAN PAGER NO: [phone] RESOURCE: EDA KHAN REASON FOR APPOINTMENT 1. FOLLOWUP HISTORY OF PRESENT ILLNESS HISTORY OF PRESENT ILLNESS: HERE FOR F/U OF CHRONIC LBP AND RIGHT LEG PAIN.RATING PAIN VAS 6/10.USING FENTANYL PATCH 25MCG Q72H, LYRICA 200MG TID AND OXYCODONE 5MG PRN WITH MDD2.BRINGS MEDICINE INTO CLINIC WHICH IS APPROPRIATE FOR WHAT WAS DISPENSED.FINDS MEDICINE EFFECTIVE AT REDUCING PAIN AND KEEPING HER COMFORTABLE.DENIES ADVERSE EFFECTS WITH MEDICATION. PAIN THE PATIENT DESCRIBES THE PAIN... THE PATIENT DESCRIBES THE PAIN... THE PATIENT DESCRIBES THE PAIN... THE PATIENT DESCRIBES THE PAIN... THE PATIENT DESCRIBES THE PAIN... THE PATIENT DESCRIBES THE PAIN... THE PATIENT DESCRIBES THE PAIN... PAIN THE PATIENT DESCRIBES THE PAIN... THE PATIENT DESCRIBES THE PAIN... THE PATIENT DESCRIBES THE PAIN... THE PATIENT DESCRIBES THE PAIN... THE PATIENT DESCRIBES THE PAIN... THE PATIENT DESCRIBES THE PAIN... THE PATIENT DESCRIBES THE PAIN... PAIN THE PATIENT DESCRIBES THE PAIN... THE PATIENT DESCRIBES THE PAIN... THE PATIENT DESCRIBES THE PAIN... THE PATIENT DESCRIBES THE PAIN... THE PATIENT DESCRIBES THE PAIN... THE PATIENT DESCRIBES THE PAIN... THE PATIENT DESCRIBES THE PAIN... FALL RISK SCREENING: SCREENING :NO FALLS IN THE PAST YEAR CURRENT MEDICATIONS TAKING ALBUTEROL SULFATE HFA 108 (90 BASE) MCG/ACT AEROSOL SOLUTION 2 PUFFS INHALATION EVERY 4 HRS NEEDED TAKING ATORVASTATIN CALCIUM 80 MG TABLET 1 TABLET ORALLY ONCE A DAY TAKING COREG 25 MG TABLET [address] SOUSA ORALLY TWICE A DAY TAKING SPIRONOLACTONE 25 MG TABLET [address] SOUSA ORALLY ONCE A DAY TAKING CHLORTHALIDONE 25 MG TABLET 1/2 TABLET IN THE MORNING DR SOUSA ORALLY ONCE A DAY TAKING GABAPENTIN 300 MG CAPSULE 1 CAPSULE ORALLY THREE TIMES A DAY TAKING CANE - MISCELLANEOUS DIRECTED DX=M54.16 DIRECTED TAKING OMEPRAZOLE 20 MG CAPSULE DELAYED RELEASE 1 CAPSULE 30 MIN BEFORE MEAL ORALLY ONCE A DAY TAKING LISINOPRIL 20 MG TABLET [address] SOUSA ORALLY TWICE DAILY TAKING FLUTICASONE PROPIONATE 50 MCG/ACT SUSPENSION INSTILL 1 SPRAY IN EACH NOSTRIL ONCE DAILY TAKING DENAVIR 1 % CREAM 1 APPLICATION TO AFFECTED AREA EXTERNALLY FOUR TIMES DAILY NEEDED TAKING LORATADINE 10 MG TABLET TAKE ONE TABLET BY MOUTH ONCE DAILY ORALLY DAILY TAKING OMEPRAZOLE 20 MG CAPSULE DELAYED RELEASE TAKE ONE CAPSULE BY MOUTH 30 MINUTES BEFORE A MEAL ONCE DAILY ORALLY DAILY TAKING ROLLING WALKER 1 1 DX=M96.1 _ _ TAKING LYRICA 200 MG CAPSULE 1 CAPSULE ORALLY THREE TIMES DAILY...MDD 3 TAKING OXYCODONE HCL 5 MG TABLET 1 ORALLY Q6H MDD 2 TAKING FENTANYL 25 MCG/HR PATCH 72 HOUR 1 PATCH TO SKIN TRANSDERMAL MDD 1 PATCH Q72H =MDD TAKING FLONASE 50 MCG/ACT SUSPENSION 1 SPRAY IN EACH NOSTRIL NASALLY ONCE A DAY NOT-TAKING HYDROXYZINE PAMOATE 50 MG CAPSULE 1 CAPSULE NEEDED ORALLY EVERY 6 HRS NEEDED NOT-TAKING TENS UNIT DIRECTED NOT-TAKING OMEPRAZOLE 20 MG UNSPECIFIED 1 CAPSULE 30 MIN BEFORE MEAL ORALLY ONCE A DAY MEDICATION LIST REVIEWED AND RECONCILED WITH THE PATIENT PAST MEDICAL HISTORY HYPERTENSION CHRONIC BACK PAIN, LUMBAR -DEG DISC DISEASE, DEPRESSION ANXIETY ALLERGIES, SEASONAL, ENVIRONMENTAL POST PARTEM CONGESTIVE HEART FAILURE 2009 - DR SOUSA ECHO 08/02 - OBESITY POOR DENTITION CHRONIC LEUKOCYTOSIS () ELEVATED PTT FIBROMYALGIA CARPAL TUNNEL FACTOR 8 DEFICIENCY ALLERGIES CODEINE SULFATE: HIVES: ALLERGY BUTRAN TRANSDERMAL PATCH: HIVES: ALLERGY SURGICAL HISTORY T & A 70'S D&C 90S CATARACT-LENS IMPLANTS , SKIN LESION EXCISION -BENIGN, DR Lan ALFREDO 12/31 LAMINECTOMY L 3-L4 AND L4-L5 WITH SPINAL FUSION 01-01-14 LIPOMA LOWER R BACK HEMATOMA 12-02 HOSPITALIZATION/MAJOR DIAGNOSTIC PROCEDURE EMERGENCY , DUE TO CHF 2009 REVIEW OF SYSTEMS REVIEWED BY: PROVIDER: EDA MCCLELLAN . CONSTITUTIONAL: ANY CHANGE IN YOUR MEDICAL CONDITION? NO . CHILLS NO . FEVER NO . INFECTION: DO YOU HAVE NEW INFECTIONS? NO . DO YOU HAVE HISTORY OF MRSA? NO . MUSCULOSKELETAL: ANY NEW PATTERNS OF PAIN OR NUMBNESS? NO . GASTROENTEROLOGY: ANY NEW CHANGE IN BOWEL CONTROL? NO . GENITOURINARY: ANY NEW CHANGE IN BLADDER CONTROL? NO . IS THERE A CHANCE YOU COULD BE ? NO . HEMATOLOGY/LYMPH: DO YOU TAKE ANY BLOOD THINNERS? (FOR EXAMPLE- COUMADIN, PLAVIX, AGGRENOX, PLATEL, PRADAXA, OR XARELTO) NO . WHEN WAS YOUR LAST DOSE? DATE: TIME: . NEUROLOGY: HAVE YOU FALLEN IN THE PAST 6 MONTHS? NO . ANY NEW EXTREMITY NUMBNESS OR WEAKNESS? NO . CARDIOLOGY: DO YOU HAVE A PACEMAKER OR DEFIBRILLATOR? NO . RESPIRATORY: HAVE YOU BEEN SICK IN THE PAST WEEK? NO . FEVER NO . FLU LIKE SYMPTOMS? NO . COUGH NO . INTEGUMENTARY: DO YOU HAVE ANY RASHES OR OPEN SORES? NO . ALLERGIC/IMMUNO: ARE YOU ALLERGIC TO SHELLFISH OR IV DYE? NO . ANY NEW ALLERGIES? NO . PSYCHIATRIC: DO YOU HAVE THOUGHTS OF HURTING YOURSELF OR SOMEONE ELSE? NO . ARE YOU ABUSED, NEGLECTED, OR IN AN UNSAFE ENVIRONMENT? NO . ENDOCRINOLOGY: ARE YOU DIABETIC? NO . OTHER: DO YOU NEED ANY PRESCRIPTIONS? NO . IF YES, PLEASE LIST: ____ . ANY NEW PROBLEMS WITH YOUR MEDICATIONS? NO . WHEN DID YOU LAST EAT? ____ . WHEN DID YOU LAST DRINK? ____ . WHAT DID YOU LAST DRINK? ____ . NAME OF PERSON DRIVING YOU HOME? ____ . DO YOU HAVE ANY OTHER QUESTIONS OR CONCERNS NO . VITAL SIGNS WT 171 LBS, HT 64.5 IN, BMI 28.90 INDEX, BP 142/70 MM HG, HR 65 /MIN, RR 18 /MIN, TEMP 97.0 F, OXYGEN SAT % 97%, NA INITIALS AW 1101, REVIEWED BY: EM. EXAMINATION GENERAL EXAMINATION: LUNGS:LUNG SOUNDS ARE CLEAR. HEART:HEART RATE REGULAR. MUSCULOSKELETAL:*. MUSCULOSKELETAL:*, MUSCLE STRENGTH TESTING 2/5 RIGHT,5/5 LEFT ., PALPATION: POSITIVE FOR PAIN OVER L/S SPINE. POSITIVE FOR PAIN OVER L/S PARSPINALS. RANGE OF MOTION OF SPINE W INCREASE PAIN. DIAGNOSTIC: . ASSESSMENTS POST LAMINECTOMY SYNDROME - M96.1 (PRIMARY) CHRONIC PRESCRIPTION OPIATE USE - Z79.891 TREATMENT POST LAMINECTOMY SYNDROME CONTINUE LYRICA CAPSULE, 200 MG, 1 CAPSULE, ORALLY, THREE TIMES DAILY...MDD 3, 30 DAY(S), 90, REFILLS 2 REFILL OXYCODONE HCL TABLET, 5 MG, 1, ORALLY, Q6H MDD 2, 30 DAY(S), 60, REFILLS 0 REFILL FENTANYL PATCH 72 HOUR, 25 MCG/HR, 1 PATCH TO SKIN, TRANSDERMAL, MDD 1 PATCH Q72H =MDD, 30 DAY(S), 10, REFILLS 0 NOTES: ISTOP REGISTRY REVIEWED AND DEMNOSTRATES COMPLLIANCE. BRINGS IN MEDICATIONS WHICH IS APPROPRIATE FOR WHAT WAS DISPENSED. RECENT URINE TOXICOLOGY REVIEWED. NO UNAUTHORIZED MEDICATIONS. NO ILLICIT SUBSTANCES AND PRESCRIBED MEDICATIONS WERE PRESENT. , RISKS AND BENEFITS OF NARCOTIC/OPIOD MEDICATIONS WERE REVIEWED WITH PATIENT - THIS INCLUDES BUT IS NOT LIMITED TO RISK OF DEPENDANCE/DEVELOPMENT OF ADDICTION, MOOD DISTURBANCE AND DEPRESSION, OSTEOPOROSIS, HORMONAL AND LABIDAL CHANGES, RESPIRATORY DEPRESSION AND . PATIENT IS ADVISED NOT TO DRIVE WHILE ON THESE MEDICATIONS. PROCEDURE CODES FA211 ESTABILISHED PATIENT [facility] FACILITY CHARGE G8730 PAIN ASSESS POS TOOL F/U PLAN DOC G8427 DOC MEDS VERIFIED W/PT OR RE DISPOSITION & COMMUNICATION FOLLOW UP 2 MONTHS (REASON: MED MGMT) ELECTRONICALLY SIGNED BY VY LAL ON 06/02/2017 AT 11:18 AM EDT DISCLAIMER : THIS IS A VISIT SUMMARY EXTRACTED FROM THE ECLINICALWORKS CHART. IT IS NOT A COPY OF THE ECLINICALWORKS PROGRESS NOTE. TARIK
== END ==
LOC: M PAIN 11:00
PROVIDERS: ATTEND Nurse Practitioner Family
DX: M96.1 Postlaminectomy syndrome, not elsewhere classified (principal); M54.5 Low back pain; G89.29 Other chronic pain; I10 Essential (primary) hypertension; F32.9 Major depressive disorder, single episode, unspecified; E78.2 Mixed hyperlipidemia; Z79.891 Long term (current) use of opiate analgesic; Z79.899 Other long term (current) drug therapy; Z72.0 Tobacco use; Z88.5 Allergy status to narcotic agent; Z88.8 Allergy status to other drugs, medicaments and biological substances

== ENCOUNTER → 2017-08-02 | Outpatient (CLI) | payer MEDICARE, MEDICAID | LOC: M PAIN 10:30 | PROVIDERS: ATTEND Nurse Practitioner Family | DX: G89.29 Other chronic pain (principal); M96.1 Postlaminectomy syndrome, not elsewhere classified; I10 Essential (primary) hypertension; F32.9 Major depressive disorder, single episode, unspecified; F41.9 Anxiety disorder, unspecified; J30.2 Other seasonal allergic rhinitis; F17.210 Nicotine dependence, cigarettes, uncomplicated; E66.9 Obesity, unspecified; M79.7 Fibromyalgia; D66 Hereditary factor VIII deficiency; Z79.891 Long term (current) use of opiate analgesic; Z79.899 Other long term (current) drug therapy; Z88.5 Allergy status to narcotic agent; Z88.8 Allergy status to other drugs, medicaments and biological substances ==

== ENCOUNTER → 2017-08-20 | Outpatient (REF) | payer MEDICARE, MEDICAID ==
[2017-08-20 16:59] LABS: ANION GAP 8 MEQ/L (8-16); BLOOD UREA NITROGEN 16 MG/DL (7-18); CARBON DIOXIDE LEVEL 27 MEQ/L (21-32); CHLORIDE LEVEL 105 MEQ/L (98-107); CREATININE FOR GFR 0.81 MG/DL (0.55-1.02); GLOMERULAR FILTRATION RATE > 60.0 (>51); GLUCOSE, FASTING 90 MG/DL (70-105); MAGNESIUM LEVEL 2.1 MG/DL (1.8-2.4); POTASSIUM SERUM 3.9 MEQ/L (3.5-5.1); SODIUM LEVEL 140 MEQ/L (136-145)
== END ==
LOC: M SFHCPLAZ 12:24
PROVIDERS: ATTEND Family Medicine
DX: E87.6 Hypokalemia (principal)

== ENCOUNTER 2017-08-27 17:58 | Emergency (ER) | payer MEDICARE, MEDICAID ==
[2017-08-27 18:02] VITALS: BP 118/60
== END 2017-08-27 18:51 | disposition left against medical advice (07) ==
LOC: EDBD 17:58 → M ED 17:58
DX: R41.82 Altered mental status, unspecified (principal); I10 Essential (primary) hypertension; M54.9 Dorsalgia, unspecified; G89.29 Other chronic pain; F32.9 Major depressive disorder, single episode, unspecified; F41.9 Anxiety disorder, unspecified; M79.7 Fibromyalgia; D68.51 Activated protein C resistance; F17.200 Nicotine dependence, unspecified, uncomplicated; Z88.8 Allergy status to other drugs, medicaments and biological substances; Z88.5 Allergy status to narcotic agent; Z79.899 Other long term (current) drug therapy

== ENCOUNTER → 2017-10-04 | Outpatient (CLI) | payer MEDICARE, MEDICAID | LOC: M PAIN 09:15 | DX: G89.29 Other chronic pain (principal); M96.1 Postlaminectomy syndrome, not elsewhere classified; I10 Essential (primary) hypertension; F32.9 Major depressive disorder, single episode, unspecified; F41.9 Anxiety disorder, unspecified; J30.2 Other seasonal allergic rhinitis; D47.1 Chronic myeloproliferative disease; M79.7 Fibromyalgia; F17.210 Nicotine dependence, cigarettes, uncomplicated; E66.9 Obesity, unspecified; Z68.29 Body mass index [BMI] 29.0-29.9, adult; Z79.891 Long term (current) use of opiate analgesic; Z79.899 Other long term (current) drug therapy; Z88.5 Allergy status to narcotic agent; Z87.59 Personal history of other complications of pregnancy, childbirth and the puerperium | CPT/HCPCS: G0463 ==

== ENCOUNTER 2018-01-04 16:59 | Emergency (ER) | payer MEDICARE, MEDICAID ==
[2018-01-04] MEDS: ANEXSIA, NORCO 7.5MG/325MG TABLET(HYDROCODONE/APAP) PO (18:29)
== END 2018-01-04 19:47 | disposition home or self-care (01) ==
LOC: M ED 16:59
DX: S20.212A Contusion of left front wall of thorax, initial encounter (principal); S46.812A Strain of other muscles, fascia and tendons at shoulder and upper arm level, left arm, initial encounter; W00.9XXA Unspecified fall due to ice and snow, initial encounter; Y92.9 Unspecified place or not applicable; Y93.9 Activity, unspecified; Y99.9 Unspecified external cause status; F17.200 Nicotine dependence, unspecified, uncomplicated; Z98.84 Bariatric surgery status; Z79.899 Other long term (current) drug therapy; Z88.5 Allergy status to narcotic agent; Z88.8 Allergy status to other drugs, medicaments and biological substances; Z91.048 Other nonmedicinal substance allergy status
CPT/HCPCS: 71101

== ENCOUNTER 2018-01-08 17:16 | Emergency (ER) | payer MEDICARE, MEDICAID | END 2018-01-08 20:37 | disposition home or self-care (01) | LOC: M ED 17:16 | DX: S20.229A Contusion of unspecified back wall of thorax, initial encounter (principal); W19.XXXA Unspecified fall, initial encounter; Y92.099 Unspecified place in other non-institutional residence as the place of occurrence of the external cause; Y93.9 Activity, unspecified; Y99.9 Unspecified external cause status; I10 Essential (primary) hypertension; I50.9 Heart failure, unspecified; K21.9 Gastro-esophageal reflux disease without esophagitis; M54.9 Dorsalgia, unspecified; F17.200 Nicotine dependence, unspecified, uncomplicated; Z79.899 Other long term (current) drug therapy; Z88.5 Allergy status to narcotic agent; Z88.8 Allergy status to other drugs, medicaments and biological substances; Z91.89 Other specified personal risk factors, not elsewhere classified | CPT/HCPCS: 71046 ==

== ENCOUNTER → 2018-02-01 | Outpatient (CLI) | payer MEDICARE, MEDICAID | LOC: M PAIN 13:00 | DX: G89.29 Other chronic pain (principal); M96.1 Postlaminectomy syndrome, not elsewhere classified; I10 Essential (primary) hypertension; F32.9 Major depressive disorder, single episode, unspecified; F41.9 Anxiety disorder, unspecified; J30.2 Other seasonal allergic rhinitis; E66.9 Obesity, unspecified; F17.210 Nicotine dependence, cigarettes, uncomplicated; M79.7 Fibromyalgia; Z79.891 Long term (current) use of opiate analgesic; Z79.899 Other long term (current) drug therapy; Z68.29 Body mass index [BMI] 29.0-29.9, adult | CPT/HCPCS: G0463 ==

== ENCOUNTER → 2019-05-10 | Outpatient (CLI) | payer MEDICARE, MEDICAID ==
[~2019-05-10] MED LIST changes: -/CELE20CA OR; -/DULO30CA OR; -ACET50TA PO; +CELE1CAP4 OR; +CYMB1CAP5 OR; +FENT12DI12 TOP; -FENT12PA TOP; +FENT1DIS14; +MAPA500T17 PO; +NEUR300C; +ROBA500T PO; -SALI0.6523; +SALI0.6528; +SPIR-10; -VICO5TAB16 PO; +VICO5TAB17 PO
== END ==
LOC: M OUTALCOH 08:02
PROVIDERS: ATTEND Psychiatry & Neurology Psychiatry
DX: Z03.89 Encounter for observation for other suspected diseases and conditions ruled out (principal)

== ENCOUNTER 2019-05-19 09:29 | Outpatient (RCR) | payer MEDICARE, MEDICAID | END 2019-05-20 | LOC: M OUTALCOH 09:29 | PROVIDERS: ATTEND Psychiatry & Neurology Psychiatry | DX: Z03.89 Encounter for observation for other suspected diseases and conditions ruled out (principal); F17.200 Nicotine dependence, unspecified, uncomplicated ==

== ENCOUNTER 2019-05-30 13:40 | Outpatient (RCR) | payer MEDICARE, MEDICAID | END 2019-06-19 | LOC: M OUTALCOH 13:40 | PROVIDERS: ATTEND Psychiatry & Neurology Psychiatry | DX: Z03.89 Encounter for observation for other suspected diseases and conditions ruled out (principal); F17.200 Nicotine dependence, unspecified, uncomplicated ==

== ENCOUNTER → 2020-01-16 | Outpatient (REF) | payer MEDICAID ==
[~2020-01-16] MED LIST changes: +CYCL-707 PO; -CYCL10TA PO
[2020-01-16 17:46] LABS: HEMATOCRIT 40.4 % (36.0-47.0); HEMOGLOBIN 13.2 g/dl (12.0-15.5); MEAN CORPUSCULAR HEMOGLOBIN 28.8 pg (27.0-33.0); MEAN CORPUSCULAR HGB CONC 32.7 g/dl (32.0-36.5); PLATELET COUNT, AUTOMATED 320 10^3/uL (150-450); RED BLOOD COUNT 4.59 10^6/uL (4.00-5.40); WHITE BLOOD COUNT 15.6 10^3/uL (4.0-10.0)
[2020-01-16 17:51] LABS: APPEARANCE, URINE TURBID (CLEAR); BACTERIA, URINE AUTO NEGATIVE (NEGATIVE); BILIRUBIN, URINE AUTO NEGATIVE (NEGATIVE); BLOOD, URINE BLOOD NEGATIVE (NEGATIVE); COLOR, URINE YELLOW (YELLOW); GLUCOSE, URINE (UA) AUTO NEGATIVE (NEGATIVE); KETONE, URINE AUTO NEGATIVE (NEGATIVE); LEUKOCYTE ESTERASE, URINE AUTO TRACE (NEGATIVE); NITRITE, URINE AUTO NEGATIVE (NEGATIVE); PROTEIN, URINE AUTO NEGATIVE (NEGATIVE); RBC, URINE AUTO 0 /HPF (0-3); SPECIFIC GRAVITY URINE AUTO 1.034 (1.002-1.035); SQUAMOUS EPITHELIAL CELL UR AU 0 /HPF (0-6); UROBILINOGEN, URINE AUTO 0.2 mg/dL (0.0-2.0); WBC, URINE AUTO 0 /HPF (0-3)
[2020-01-16 17:58] LABS: ALBUMIN 3.6 GM/DL (3.2-5.2); ALT/SGPT 36 U/L (12-78); BILIRUBIN,TOTAL 0.3 MG/DL (0.2-1.0); BLOOD UREA NITROGEN 20 MG/DL (7-18); CALCIUM LEVEL 9.2 MG/DL (8.5-10.1); CARBON DIOXIDE LEVEL 25 MEQ/L (21-32); CHLORIDE LEVEL 106 MEQ/L (98-107); CHOLESTEROL LEVEL 177 MG/DL (<200); CHOLESTEROL RISK RATIO 5.709 (<5); CREATININE FOR GFR 0.77 MG/DL (0.55-1.30); FERRITIN 62 NG/ML (8-252); FREE T4 0.98 NG/DL (0.76-1.46); GLOMERULAR FILTRATION RATE > 60.0 (>51); GLUCOSE, FASTING 101 MG/DL (70-100); HDL CHOLESTEROL 31 MG/DL (>40); IRON (FE) 72 UG/DL (50-170); LDL CHOLESTEROL 81 MG/DL (<100); NON-HDL-C 146 MG/DL; POTASSIUM SERUM 4.2 MEQ/L (3.5-5.1); SODIUM LEVEL 139 MEQ/L (136-145); THYROID STIMULATING HORMONE 0.567 uIU/ML (0.358-3.740); TOTAL PROTEIN 7.6 GM/DL (6.4-8.2); TRIGLYCERIDES LEVEL 323 MG/DL (<150)
[2020-01-16 18:00] LABS: VITAMIN B12 LEVEL 449 PG/ML
[2020-01-16 18:01] LABS: FOLATE 15.1 NG/ML
[2020-01-16 18:19] LABS: TOTAL 25(OH) VITAMIN D 30.5 NG/ML (30.0-100.0)
[2020-01-16 18:27] LABS: HEMOGLOBIN A1c 6.3 %
[2020-01-16 18:38] LABS: BASOPHILS 1 % (0-1); EOSINOPHILS 1 % (0-3); LYMPHOCYTES 35 % (16-44); MONOCYTES 3 % (0-5); NEUTROPHILS 59 % (28-66); PLATELET ESTIMATE NORMAL (NORMAL)
== END ==
LOC: M LAB REF 16:05
PROVIDERS: ATTEND Nurse Practitioner Family
DX: K21.9 Gastro-esophageal reflux disease without esophagitis (principal); J30.2 Other seasonal allergic rhinitis; E78.5 Hyperlipidemia, unspecified; F17.200 Nicotine dependence, unspecified, uncomplicated; I10 Essential (primary) hypertension

== ENCOUNTER 2020-05-17 16:54 | Emergency (ER) | payer MEDICAID ==
[~2020-05-17] VITALS: Ht 162.6 cm; Wt 95.7 kg
[2020-05-17] MEDS ORDERED: LIDOCAINE 5% (LIDODERM) PATCH TD ONE (18:45)
[2020-05-17] MEDS ORDERED: CYCLOBENZAPRINE 10MG TABLET PO ONE (18:45)
[2020-05-17] MEDS ORDERED: methylPREDNISolone 125MG 2ML VIAL IM ONE (18:45)
[2020-05-17] MEDS ORDERED: CYCL5TAB PO (19:35)
[2020-05-17] MEDS ORDERED: LIDO5DIS41 TOP (19:35)
[2020-05-17 19:48] VITALS: BP 168/76
[2020-05-17] MEDS ORDERED: **NOTE PATIENT COMMENT** MISC XX SCH (21:00)
== END 2020-05-17 19:49 | disposition home or self-care (01) ==
LOC: M ED 16:54
DX: M54.5 Low back pain (principal); F17.200 Nicotine dependence, unspecified, uncomplicated; D66 Hereditary factor VIII deficiency; Z79.899 Other long term (current) drug therapy; Z88.5 Allergy status to narcotic agent; Z88.8 Allergy status to other drugs, medicaments and biological substances
CPT/HCPCS: 96372; 99283; J2930

== ENCOUNTER → 2020-08-01 | Outpatient (REF) | payer MEDICAID ==
[~2020-08-01] MED LIST changes: +CYCL5TAB PO; +LIDO5DIS41 TOP
[2020-08-01 16:46] LABS: ALBUMIN 3.8 GM/DL (3.2-5.2); ALT/SGPT 40 U/L (12-78); BILIRUBIN,TOTAL 0.2 MG/DL (0.2-1.0); BLOOD UREA NITROGEN 15 MG/DL (7-18); CALCIUM LEVEL 9.5 MG/DL (8.5-10.1); CARBON DIOXIDE LEVEL 25 MEQ/L (21-32); CHLORIDE LEVEL 106 MEQ/L (98-107); CHOLESTEROL LEVEL 182 MG/DL (<200); CHOLESTEROL RISK RATIO 5.515 (<5); CREATININE FOR GFR 0.84 MG/DL (0.55-1.30); GLOMERULAR FILTRATION RATE > 60.0 (>51); GLUCOSE, FASTING 99 MG/DL (70-100); HDL CHOLESTEROL 33 MG/DL (>40); NON-HDL-C 149 MG/DL; POTASSIUM SERUM 4.3 MEQ/L (3.5-5.1); SODIUM LEVEL 139 MEQ/L (136-145); TOTAL PROTEIN 7.1 GM/DL (6.4-8.2); TRIGLYCERIDES LEVEL 411 MG/DL (<150)
[2020-08-01 16:50] LABS: BASO # 0.1 10^3/uL (0.0-0.2); BASO % 0.5 % (0.0-1.0); EOS # 0.1 10^3/uL (0.0-0.5); EOS % 0.9 % (0.0-3.0); HEMATOCRIT 41.5 % (36.0-47.0); HEMOGLOBIN 13.4 g/dl (12.0-15.5); LYMPH # 2.9 10^3/uL (1.5-5.0); LYMPH % 23.7 % (24.0-44.0); MEAN CORPUSCULAR HGB CONC 32.3 g/dl (32.0-36.5); MEAN CORPUSCULAR VOLUME 89.8 fl (80.0-96.0); MONO # 0.9 10^3/uL (0.0-0.8); NEUTROPHILS # 8.2 10^3/uL (1.5-8.5); NEUTROPHILS % 67.5 % (36.0-66.0); PLATELET COUNT, AUTOMATED 242 10^3/uL (150-450); RED BLOOD COUNT 4.62 10^6/uL (4.00-5.40); WHITE BLOOD COUNT 12.1 10^3/uL (4.0-10.0)
[2020-08-01 17:34] LABS: HEMOGLOBIN A1c 5.8 %
== END ==
LOC: M LAB REF 16:17
PROVIDERS: ATTEND Nurse Practitioner Family
DX: R73.03 Prediabetes (principal); Z13.9 Encounter for screening, unspecified; E78.5 Hyperlipidemia, unspecified; F17.200 Nicotine dependence, unspecified, uncomplicated; I10 Essential (primary) hypertension

== ENCOUNTER → 2020-12-18 | Outpatient (REF) | payer MEDICAID ==
[2020-12-18 13:36] LABS: BASO # 0.1 10^3/uL (0.0-0.2); BASO % 0.6 % (0.0-1.0); EOS # 0.1 10^3/uL (0.0-0.5); HEMATOCRIT 40.4 % (36.0-47.0); HEMOGLOBIN 13.6 g/dl (12.0-15.5); LYMPH # 3.7 10^3/uL (1.5-5.0); LYMPH % 25.6 % (24.0-44.0); MEAN CORPUSCULAR HEMOGLOBIN 29.8 pg (27.0-33.0); MEAN CORPUSCULAR HGB CONC 33.7 g/dl (32.0-36.5); MEAN CORPUSCULAR VOLUME 88.6 fl (80.0-96.0); MONO % 6.6 % (2.0-8.0); NEUTROPHILS # 9.5 10^3/uL (1.5-8.5); NEUTROPHILS % 65.7 % (36.0-66.0); PLATELET COUNT, AUTOMATED 307 10^3/uL (150-450); RED BLOOD COUNT 4.56 10^6/uL (4.00-5.40); WHITE BLOOD COUNT 14.5 10^3/uL (4.0-10.0)
[2020-12-18 14:00] LABS: HEMOGLOBIN A1c 5.7 %
[2020-12-18 14:15] LABS: ALBUMIN 3.7 GM/DL (3.2-5.2); ALT/SGPT 24 U/L (12-78); BILIRUBIN,TOTAL 0.3 MG/DL (0.2-1.0); BLOOD UREA NITROGEN 10 MG/DL (7-18); CALCIUM LEVEL 9.6 MG/DL (8.5-10.1); CARBON DIOXIDE LEVEL 30 MEQ/L (21-32); CHLORIDE LEVEL 104 MEQ/L (98-107); CHOLESTEROL LEVEL 164 MG/DL (<200); CHOLESTEROL RISK RATIO 4.969 (<5); CREATININE FOR GFR 0.75 MG/DL (0.55-1.30); FREE T4 1.03 NG/DL (0.76-1.46); GLOMERULAR FILTRATION RATE > 60.0 (>51); GLUCOSE, FASTING 102 MG/DL (70-100); HDL CHOLESTEROL 33 MG/DL (>40); LDL CHOLESTEROL 70 MG/DL (<100); NON-HDL-C 131 MG/DL; POTASSIUM SERUM 3.2 MEQ/L (3.5-5.1); SODIUM LEVEL 139 MEQ/L (136-145); THYROID STIMULATING HORMONE 0.532 uIU/ML (0.358-3.740); TOTAL PROTEIN 6.8 GM/DL (6.4-8.2); TRIGLYCERIDES LEVEL 305 MG/DL (<150)
[2020-12-18 16:10] LABS: TOTAL 25(OH) VITAMIN D 33.1 NG/ML (30.0-100.0)
== END ==
LOC: M LAB REF 12:19
PROVIDERS: ATTEND Nurse Practitioner Family
DX: E78.5 Hyperlipidemia, unspecified (principal); R73.03 Prediabetes; K21.9 Gastro-esophageal reflux disease without esophagitis

== ENCOUNTER → 2021-02-26 | Outpatient (CLI) | payer MEDICARE, MEDICAID ==
[~2021-02-26] MED LIST changes: +ATOR40TA75 PO; +CARV25TA PO
[2021-02-26 11:34] LABS: BASO % 0.3 % (0.0-1.0); EOS # 0.1 10^3/uL (0.0-0.5); EOS % 0.8 % (0.0-3.0); HEMATOCRIT 41.2 % (36.0-47.0); HEMOGLOBIN 13.6 g/dl (12.0-15.5); LYMPH # 2.4 10^3/uL (1.5-5.0); LYMPH % 22.4 % (24.0-44.0); MEAN CORPUSCULAR HEMOGLOBIN 29.2 pg (27.0-33.0); MEAN CORPUSCULAR VOLUME 88.4 fl (80.0-96.0); MONO # 0.6 10^3/uL (0.0-0.8); MONO % 5.4 % (2.0-8.0); NEUTROPHILS # 7.6 10^3/uL (1.5-8.5); NEUTROPHILS % 70.8 % (36.0-66.0); PLATELET COUNT, AUTOMATED 245 10^3/uL (150-450); RED BLOOD COUNT 4.66 10^6/uL (4.00-5.40); WHITE BLOOD COUNT 10.8 10^3/uL (4.0-10.0)
[2021-02-26 16:33] LABS: ALBUMIN 3.5 GM/DL (3.2-5.2); ALT/SGPT 20 U/L (12-78); BILIRUBIN,TOTAL 0.4 MG/DL (0.2-1.0); BLOOD UREA NITROGEN 16 MG/DL (7-18); CALCIUM LEVEL 9.3 MG/DL (8.5-10.1); CARBON DIOXIDE LEVEL 25 MEQ/L (21-32); CHLORIDE LEVEL 105 MEQ/L (98-107); CREATININE FOR GFR 0.65 MG/DL (0.55-1.30); GLOMERULAR FILTRATION RATE > 60.0 (>51); GLUCOSE, FASTING 124 MG/DL (70-100); POTASSIUM SERUM 3.8 MEQ/L (3.5-5.1); SODIUM LEVEL 138 MEQ/L (136-145); TOTAL PROTEIN 6.9 GM/DL (6.4-8.2)
[2021-02-27 11:54] LABS: JAK2 MUTATIONS FOR PATH SENDOU See Pathology Report
== END ==
LOC: M PLALAB 08:30
PROVIDERS: ATTEND Internal Medicine Hematology & Oncology
DX: D72.829 Elevated white blood cell count, unspecified (principal)

== ENCOUNTER → 2021-02-26 | Outpatient (CLI) | payer MEDICARE, MEDICAID ==
--- NOTE | 2021-02-26 09:18 | REP ---
INDICATION: Z12.39 SCREENING MAMMO. COMPARISON: 08/07/2008. TECHNIQUE: MLO and CC views bilateral breasts performed with tomosynthesis. FINDINGS: Mild scattered fibroglandular tissue is present bilaterally. There is a spiculated mass in the upper outer quadrant of the right breast anteriorly measuring approximately 2.7 cm in maximum diameter. No other mass is seen. There is no other evidence of architectural distortion. No clustered microcalcifications are seen. The Volpara volumetric breast density pattern is B. IMPRESSION: BIRADS/ACR category 0, incomplete. There is a spiculated mass in the upper-outer quadrant of the right breast anteriorly. Recommend spot compression views and ultrasound to further evaluate. This patient's Tyrer-Cuzick lifetime breast cancer risk assessment score is 12.3%. This mammogram was interpreted with the aid of an FDA-approved computer-aided detection system. The patient states she had a clinical breast exam in over 1 year ago. The patient letter being requested is M0. RECOMMENDATION: Recommend spot compression views and ultrasound right breast. <Electronically signed by Miller Dawkins > 02/26/21 0914
== END ==
LOC: M WHC 07:46
PROVIDERS: ATTEND Nurse Practitioner Family
DX: Z12.31 Encounter for screening mammogram for malignant neoplasm of breast (principal); N63.11 Unspecified lump in the right breast, upper outer quadrant; D72.829 Elevated white blood cell count, unspecified

== ENCOUNTER → 2021-02-27 | Outpatient (CLI) | payer MEDICARE, MEDICAID ==
--- NOTE | 2021-02-27 09:40 | REP ---
INDICATION: INC WBC, R/O SPLEENOMAGALY TECHNIQUE: Real time B-mode thompson scale ultrasound examination using curved array transducer. FINDINGS: Liver and visualized portions of the pancreas are normal. The spleen is upper limits of normal/mildly enlarged without focal splenic abnormality and measures 10.3 x 11.0 x 4.9 cm. The gallbladder is normal and without gallstones, wall thickening, or pericholecystic fluid. No biliary ductal dilatation is appreciated and the common bile duct measures 6 mm diameter. The bilateral kidneys are normal in reniform shape without hydronephrosis or obvious abnormality. Right kidney measures 11.2 x 5.7 x 4.6 cm. Left kidney measures 11.3 x 5.4 x 5.1 cm. Atherosclerotic changes to the visualized abdominal aorta noted. No obvious ascites. IMPRESSION: 1. Spleen is mildly enlarged but without obvious splenic abnormality. 2. Otherwise relatively normal complete abdominal ultrasound. <Electronically signed by Edwar Mo > 02/27/21 0992
== END ==
LOC: M RAD 08:22
PROVIDERS: ATTEND Internal Medicine Hematology & Oncology
DX: D72.829 Elevated white blood cell count, unspecified (principal); R16.1 Splenomegaly, not elsewhere classified

== ENCOUNTER → 2021-03-07 | Outpatient (CLI) | payer MEDICARE, MEDICAID ==
--- NOTE | 2021-03-07 13:29 | REP ---
INDICATION: RIGHT BREAST ADD VIEWS. COMPARISON: Multiple the latest screening examination of 02/26/2021 TECHNIQUE: Diagnostic digital magnified spot compression views of the right breast were obtained in the CC and MLO projections over spiculated density in the upper slightly outer aspect along with diagnostic ultrasonography using anatomical intelligence and shear wave elastography FINDINGS: Diagnostic digital magnified spot-compression views show persistence of a spiculated mass. Diagnostic ultrasonography right breast region of interest shows an irregular solid mass at the 10 o'clock position which measures 1.5 x 2 x 2.6 cm. This exhibits some acoustic shadowing. Shear wave elastography shows very high kPa values of 180. IMPRESSION: BIRADS/ACR category 4 mammogram and ultrasound exam. Biopsy is recommended. The patient letter being requested is M4. RECOMMENDATION: As above <Electronically signed by Ba Collins > 03/07/21 [id number]
== END ==
LOC: M WHC 10:29
PROVIDERS: ATTEND Nurse Practitioner Family
DX: N63.11 Unspecified lump in the right breast, upper outer quadrant (principal)

== ENCOUNTER → 2021-03-26 | Outpatient (CLI) | payer MEDICARE, MEDICAID ==
[2021-03-26 09:37] VITALS: BP 138/84
--- NOTE | 2021-03-29 17:57 | ROOPDOC ---
[facility] Report Of Operation Report of Operation DATE OF PROCEDURE: 03/26/21 DIAGNOSIS: right breast suspicious lesion PROCEDURE: ultrasound guided biopsy of the right breast suspicious lesion with clip placement SURGEON: Anahi Jolley BLOOD LOSS: minimal COMPLICATIONS: none Lidocaine 1% LOT [id number] Expiration 10/2024 Sodium Bicarbonate 8.4% LOT [id number] Expiration 10/2021 Hydromark clip LOT [id number] Expiration 07/2023 SHAP : 4 Bx device: BARD [id number] x10 cm LOT [id number] Expiration 12/2023 Informed consent was obtained. The most common risk and possible complications including bleeding, hematoma, bruising, infection, injury to surrounding structures were explained to the patient and the patient expressed understanding. Patient was placed on the bed in the supine position. Appropriate time out was done stating patients name, date of , and the procedure to be performed. The right breast was prepped and draped in the usual fashion. The ultrasound was used to confirm the location of the lesion in the right breast at 11:00 1-5 centimeters from the nipple. Plain Lidocaine 1% and 8.4% sodium bicarbonate 10:1 mix was used to anesthetize the skin, the biopsy site and tissues along the anticipated biopsy tract. Small skin incision was made with blade number 11. BARD Marquee 14G cannula with introducer ([id number]) was inserted through the incision and advanced under the ultrasound guidance to position immediately adjacent to the lesion. Next, the introducer was removed and BARD Marquee 14G biopsy device was places in the cannula. Pre-biopsy imaging, and post-biopsy imaging were captured. Five good core biopsies were taken at various levels of the lesion. Specimen was placed in formaldehyde, labeled with appropriate biopsy site and patients name, and sent to pathology for evaluation. Next, the biopsy device was withdrawn and a clip introducer was inserted into the biopsy site via the cannula. SHAPE 4 Hydromark clip was deployed under sonographic guidance. Post-clip placement image was captured. Manual pressure over the biopsy cavity and tract was held after the clip introducer was withdrawn. No bleeding was noted upon removal of the pressure. Post-biopsy mammogram of the right breast was obtained and showed clip in expected position. Postprocedural dressing was placed. Patient tolerated procedure well. Discharge instructions were discussed with the patient and the patient expressed understanding. ANAHI JOLLEY. DO Mar 29, 2021 17:57
== END ==
LOC: M WHCPRO 08:32
PROVIDERS: ATTEND Surgery
DX: C50.211 Malignant neoplasm of upper-inner quadrant of right female breast (principal)

== ENCOUNTER → 2021-04-04 | Outpatient (CLI) | payer MEDICARE, MEDICAID ==
[~2021-04-04] MED LIST changes: +PROHANCE 279.3MG/ML 15ML VIAL As Ordered ONE; +PROHANCE 279.3MG/ML 5ML VIAL As Ordered ONE
--- NOTE | 2021-04-07 09:19 | REP ---
INDICATION: INVASIVE DUCTAL CA RT BREAST. COMPARISON: Comparison mammography is from March 26, 2021 and March 07, 2021. Patient is status post ultrasound-guided needle biopsy right breast malignancy on March 26, 2021. TECHNIQUE: Three Moraima MRI imaging was performed with a dedicated breast coil. Axial, coronal, and sagittal T1 and T2 weighted scans were obtained with and without fat saturation in the usual fashion. The study includes dynamically acquired post gadolinium-enhanced imaging with image subtraction. Maximum intensity projection and multi planar reformation imaging is included as well. This study is interpreted with the aid of [employer], an FDA approved computer aided detection (CAD) software program, on a dedicated breast MRI workstation. The gadolinium enhancement dose is 16 mL of intravenous ProHance. FINDINGS: There is a moderate amount of fibroglandular tissue bilaterally corresponding with the mammographic pattern. There is scattered bilateral upper outer quadrant background parenchymal enhancement. There is no evidence of axillary lymphadenopathy or significant breast cystic change. The biopsy proven malignancy is seen as a spiculated mass measuring 2.6 x 1.6 x 2.1 cm in approximately the 11 to 12 o'clock position of the right breast anterior 3rd. There is an adjacent HydroMARK marker clip device. There is normal background parenchymal enhancement the upper outer quadrant on the right. In the left breast, there is scattered and symmetric background parenchymal enhancement in the upper outer quadrant. There is a somewhat asymmetric 1.1 by 0.7 by 0.3 cm area of enhancement and washout in the anterior 3rd, at the 12 o'clock position. This appears somewhat more nodular than the foci of parenchymal enhancement in the upper outer quadrant. It is T2 hyperintense which is partially reassuring. No other suspicious abnormality is observed in the left breast. Dynamically acquired sequential postcontrast images, subtraction images and maximum intensity projection images show no additional finding. IMPRESSION: BI-RADS category 6 known right breast malignancy. No other suspicious abnormality is noted in the right breast. BI-RADS category 0 left breast MRI. 1.1 x 0.7 x 0.3 cm nodular area of enhancement at 12 o'clock position anterior 3rd left breast merits further evaluation. Recommend second-look sonography. <Electronically signed by Eligio Javier > 04/07/21 0940
== END ==
LOC: M RAD 14:34
PROVIDERS: ATTEND Surgery
DX: C50.911 Malignant neoplasm of unspecified site of right female breast (principal); N63.20 Unspecified lump in the left breast, unspecified quadrant
CPT/HCPCS: A9576; C8908

== ENCOUNTER → 2021-04-18 | Outpatient (CLI) | payer MEDICARE, MEDICAID ==
[~2021-04-18] MED LIST changes: -PROHANCE 279.3MG/ML 15ML VIAL As Ordered ONE; -PROHANCE 279.3MG/ML 5ML VIAL As Ordered ONE
--- NOTE | 2021-04-18 17:02 | REP ---
INDICATION: 2ND LOOK LT BREAST, ABNORMAL MRI. Comparison is made with MRI study from April 04, 2021. Area of enhancement and washout in the superior aspect of the left breast on MRI scanning. Contralateral right breast malignancy. COMPARISON: Comparison is made with MRI breast exam findings from April 04, 2021.. TECHNIQUE: Real-time sonographic scanning is performed from 11:00 to 1:00 in the left breast. Scanning was performed in my presence. FINDINGS: Left breast sonography shows heterogeneous fibroglandular background echotexture with bands of normal fibroglandular tissue. No cyst or mass is seen. No abnormal acoustic shadowing or architectural distortion is seen IMPRESSION: Second-look sonography shows no suspicious ultrasound target. The enhancing area in the 12 o'clock position in the left breast is most likely normal fibroglandular tissue. Consider six-month follow-up MRI study versus MRI guided needle biopsy. <Electronically signed by Eligio Javier > 04/18/21 [id number]
== END ==
LOC: M RAD 15:02
PROVIDERS: ATTEND Surgery
DX: R92.8 Other abnormal and inconclusive findings on diagnostic imaging of breast (principal)

== ENCOUNTER → 2021-05-02 | Outpatient (CLI) | payer MEDICARE, MEDICAID ==
[~2021-05-02] MED LIST changes: +LIDOCAINE 1% MDV 20ML VIAL As Ordered ONE; +PROHANCE 279.3MG/ML 15ML VIAL As Ordered ONE; +PROHANCE 279.3MG/ML 5ML VIAL As Ordered ONE; +SODIUM BICARBONATE 8.4% INJ 50MEQ 50 ML VIAL As Ordered ONE
[2021-05-02 17:00] VITALS: BP 156/93
--- NOTE | 2021-05-02 17:31 | REP ---
INDICATION: ABN IMAGING LT BREAST. COMPARISON: None. TECHNIQUE: The procedure was performed by Elizabeth Menjivar [facility], under the direct supervision of Dr. Javier. The risks and benefits of the procedure were explained to the patient and an informed consent was obtained both verbally and written. Directly prior to the start of the procedure a formal time-out was completed in the procedure room. In anticipation of doing a lateral to medial needle approach, the lateral aspect of the patient's left breast skin was prepped with antiseptic. The patient was placed prone on the MRI imaging table in the breast imaging coil and the left breast was compressed mildly. Sixteen mL of intravenous gadolinium was administered. Fiducial marker localization, pre and two dynamic postcontrast T1 weighted fat saturation sequences of the left breast were acquired. The [employer] system was then deployed. The lesion was targeted on initial images, and the lateral aspect of the skin was marked at the identified triangulated skin entry site. The lateral skin at the entry site was prepped again aseptically. Seven mL of buffered lidocaine was administered into the skin and the breast parenchyma along the anticipated needle path. A skin afsaneh was then made and in 8 gauge mammotome suction assisted needle biopsy device was passed into the left breast tissue without significant technical difficulty. Six core breast biopsies were retrieved and were submitted in formalin to pathology. A marker clip was deployed, shortly after the clip was deployed a big clot came out of the entry site, within neck clot in a marker clip was visualized. Another marker clip was inserted and that marker clip also came out with a clot. A 3rd marker clip was deployed, the patient was still actively bleeding but the marker clip was not visualized. The patient was informed prior to leaving that there was a possibility that the marker clip was not in the breast. FINDINGS: Post biopsy imaging did not show a clip, but the patient was still actively bleeding the patient tolerated the procedure well, with no immediate complications. The patient was then discharged to go and get their postprocedural two view mammography for marker clip placement. IMPRESSION: MRI guided left breast biopsy. <Electronically signed by Elizabeth Menjivar > 05/02/21 1712 <Electronically signed by Eligio Javier > 05/02/21 [id number]
== END ==
LOC: M IRPRO 14:19
PROVIDERS: ATTEND Surgery
DX: N60.82 Other benign mammary dysplasias of left breast (principal); N63.25 Unspecified lump in the left breast, overlapping quadrants
CPT/HCPCS: 19085; 77065; 88305; A9576; G0279

== ENCOUNTER → 2021-05-02 | Outpatient (CLI) | payer MEDICARE, MEDICAID ==
[~2021-05-02] MED LIST changes: -LIDOCAINE 1% MDV 20ML VIAL As Ordered ONE; -PROHANCE 279.3MG/ML 15ML VIAL As Ordered ONE; -PROHANCE 279.3MG/ML 5ML VIAL As Ordered ONE; -SODIUM BICARBONATE 8.4% INJ 50MEQ 50 ML VIAL As Ordered ONE
--- NOTE | 2021-05-02 17:37 | REP ---
INDICATION: ABNORMAL MRI LEFT BREAST BX FOR CLIP PLACEMENT. Patient is status post MR guided needle biopsy procedure left breast. At the end of the procedure, the patient was actively bleeding through the biopsy site. Three marker clips were a attempted to be deployed. Two of these were expressed in blood clot. No marker clip was visible lobe on post clip placement MR imaging. We elected to terminate the procedure and achieve hemostasis with manual compression. This was discussed with the patient after the procedure. COMPARISON: Comparison mammography February 26, 2021. Comparison MRI study April 04, 2021. TECHNIQUE: Craniocaudal and mediolateral views are of the left breast are obtained. This mammogram was interpreted with the aid of an FDA-approved computer-aided detection system. FINDINGS: Cc and mediolateral views of the left breast demonstrate some post biopsy soft tissue density in the 12 to 1 o'clock position in the left breast. No marker clip is visible. Study is otherwise unremarkable. IMPRESSION: Patient is status post biopsy. Post biopsy soft tissue density is seen in the left breast superiorly and laterally. The marker clip did not deploy a.. RECOMMENDATION: Pending biopsy results. <Electronically signed by Eligio Javier > 05/02/21 2652
== END ==
LOC: M WHC 17:16
PROVIDERS: ATTEND Surgery
DX: N63.25 Unspecified lump in the left breast, overlapping quadrants (principal)

== ENCOUNTER → 2021-05-08 | Outpatient (CLI) | payer MEDICARE, MEDICAID ==
[2021-05-08 18:10] LABS: BLOOD UREA NITROGEN 10 MG/DL (7-18); CALCIUM LEVEL 9.1 MG/DL (8.5-10.1); CARBON DIOXIDE LEVEL 28 MEQ/L (21-32); CHLORIDE LEVEL 104 MEQ/L (98-107); CREATININE FOR GFR 0.77 MG/DL (0.55-1.30); GLOMERULAR FILTRATION RATE > 60.0 (>51); GLUCOSE, FASTING 98 MG/DL (70-100); SODIUM LEVEL 137 MEQ/L (136-145)
== END ==
LOC: M PLALAB 14:48
PROVIDERS: ATTEND Surgery
DX: C50.911 Malignant neoplasm of unspecified site of right female breast (principal)

== ENCOUNTER → 2021-05-08 | Outpatient (CLI) | payer MEDICARE, MEDICAID ==
[2021-05-08 14:38] VITALS: BP 150/86
--- NOTE | 2021-05-08 15:43 | REP ---
INDICATION: R92.8 ABN MRI LT BREAST,POST US GUIDED FOR CLIP PLACEMENT. COMPARISON: 05/08/2021, 05/02/2021. TECHNIQUE: MLO, mL and CC views left breast performed. FINDINGS: Following ultrasound-guided placement of a HydroMARK clip, mammographic images show the clip to be within the focal area of post biopsy hemorrhage, at the site of the MR guided left breast biopsy. IMPRESSION: Appropriate HydroMARK clip placement at the site of the MR guided biopsy. RECOMMENDATION: Clinical follow-up. <Electronically signed by Miller Dawkins > 05/08/21 [id number]
== END ==
LOC: M WHCPRO 13:41
PROVIDERS: ATTEND Surgery
DX: R92.8 Other abnormal and inconclusive findings on diagnostic imaging of breast (principal)

== ENCOUNTER → 2021-05-08 | Outpatient (CLI) | payer MEDICARE, MEDICAID ==
--- NOTE | 2021-05-08 12:15 | REP ---
INDICATION: R92.8 ABN LEFT BREAST MAMMO. COMPARISON: Ultrasound 04/18/2021, mammogram 05/02/2021. TECHNIQUE: Real-time sonographic evaluation of left breast performed. FINDINGS: At the site of the recent MR guided biopsy at 12 o'clock left breast a focal hematoma is seen. IMPRESSION: Focal hematoma seen at the site of the recent MR guided biopsy 12 o'clock left breast. RECOMMENDATION: We will place a biopsy clip at the site of the hematoma. <Electronically signed by Miller Dawkins > 05/08/21 1211
--- NOTE | 2021-05-08 12:18 | REP ---
INDICATION: R92.8 ABN LEFT BREAST MAMMO. COMPARISON: 05/02/2021. TECHNIQUE: Tomographic mL and CC views left breast performed. FINDINGS: Ill-defined post biopsy hematoma is seen in the region of 12-1 o'clock, at the site of the recent MR guided biopsy. This is essentially unchanged compared to the prior study. IMPRESSION: Focal post biopsy hematoma at the site of a biopsy left breast, 12 to 1 o'clock position. RECOMMENDATION: We will place a biopsy marking clip at the site of the hematoma using ultrasound guidance, since attempts to place a marking clip during the MR guided biopsy were unsuccessful. <Electronically signed by Miller Dawkins > 05/08/21 [id number]
== END ==
LOC: M WHC 10:47
PROVIDERS: ATTEND Surgery
DX: R92.8 Other abnormal and inconclusive findings on diagnostic imaging of breast (principal); C50.911 Malignant neoplasm of unspecified site of right female breast
CPT/HCPCS: 19085; 36415; 76642; 77065; 80048; G0279

== ENCOUNTER → 2021-05-16 | Outpatient (CLI) | payer MEDICARE, MEDICAID ==
[~2021-05-16] MED LIST changes: +PROHANCE 279.3MG/ML 15ML VIAL As Ordered ONE; +PROHANCE 279.3MG/ML 5ML VIAL As Ordered ONE
--- NOTE | 2021-05-19 08:30 | REP ---
INDICATION: R92.8 ABN IMAG A TYPICAL DUCTAL HYPERPLASIA. Assess clip placement for left breast for atypical ductal hyperplasia on MR guided needle biopsy. Clip placed subsequent to MR guided needle biopsy under ultrasound guidance. Biopsy proven right breast malignancy. COMPARISON: Comparison MR imaging May 02, 2021 and April 04, 2021. Comparison mammography May 08, 2021. TECHNIQUE: Three Moraima MRI imaging was performed with a dedicated breast coil. Axial, coronal, and sagittal T1 and T2 weighted scans were obtained with and without fat saturation in the usual fashion. The study includes dynamically acquired post gadolinium-enhanced imaging with image subtraction. Maximum intensity projection and multi planar reformation imaging is included as well. This study is interpreted with the aid of [employer], an FDA approved computer aided detection (CAD) software program, on a dedicated breast MRI workstation. The gadolinium enhancement dose is 16 mL of intravenous ProHance. FINDINGS: Findings in the right breast are again noted unchanged including large malignant mass. Previously biopsied. In the left breast superiorly at approximately 12 to 1 o'clock position, there is a post biopsy hematoma measuring 1.3 cm in greatest diameter. Inferiorly adjacent to the hematoma, there is a HydroMARK needle biopsy marker clip visible on T2 and T1 weighted scans. The hematoma and the HydroMARK clip are seen at the site where prior MRI study showed the nodular area of contrast enhancement. Marker clip is felt to be in good position. IMPRESSION: BI-RADS category 6 known right breast malignancy. The HydroMARK clip placed under ultrasound guidance adjacent to the post biopsy hematoma in the left breast is seen in good position, at the site where prior MRI study showed the nodular target focus of contrast enhancement. <Electronically signed by Eligio Javier > 05/19/21 2645
== END ==
LOC: M RAD 14:57
PROVIDERS: ATTEND Surgery
DX: R92.8 Other abnormal and inconclusive findings on diagnostic imaging of breast (principal); C50.911 Malignant neoplasm of unspecified site of right female breast; L76.32 Postprocedural hematoma of skin and subcutaneous tissue following other procedure
CPT/HCPCS: A9576; C8908

== ENCOUNTER → 2021-05-22 | Outpatient (REF) | payer MEDICARE, MEDICAID ==
[~2021-05-22] MED LIST changes: +CHLO125TA PO; +FLON1SPR; +LISI20TA33 PO; +LORA-243 PO; -NEUR300C; +NEUR300C PO; +OMEP1CAP73 PO; -PROHANCE 279.3MG/ML 15ML VIAL As Ordered ONE; -PROHANCE 279.3MG/ML 5ML VIAL As Ordered ONE; +SPIR-10 PO; +VITMTA PO
[2021-05-22 17:31] LABS: BASO % 0.4 % (0.0-1.0); EOS # 0.1 10^3/uL (0.0-0.5); EOS % 1.1 % (0.0-3.0); HEMATOCRIT 44.4 % (36.0-47.0); HEMOGLOBIN 14.5 g/dl (12.0-15.5); LYMPH # 3.2 10^3/uL (1.5-5.0); LYMPH % 30.9 % (24.0-44.0); MEAN CORPUSCULAR HEMOGLOBIN 28.5 pg (27.0-33.0); MEAN CORPUSCULAR HGB CONC 32.7 g/dl (32.0-36.5); MEAN CORPUSCULAR VOLUME 87.2 fl (80.0-96.0); MONO # 0.5 10^3/uL (0.0-0.8); MONO % 5.2 % (2.0-8.0); NEUTROPHILS # 6.5 10^3/uL (1.5-8.5); NEUTROPHILS % 62.1 % (36.0-66.0); PLATELET COUNT, AUTOMATED 246 10^3/uL (150-450); RED BLOOD COUNT 5.09 10^6/uL (4.00-5.40); WHITE BLOOD COUNT 10.5 10^3/uL (4.0-10.0)
[2021-05-22 17:57] LABS: ALBUMIN 3.9 GM/DL (3.2-5.2); ALT/SGPT 24 U/L (12-78); BILIRUBIN,TOTAL 0.3 MG/DL (0.2-1.0); BLOOD UREA NITROGEN 13 MG/DL (7-18); CALCIUM LEVEL 9.6 MG/DL (8.5-10.1); CARBON DIOXIDE LEVEL 30 MEQ/L (21-32); CHLORIDE LEVEL 103 MEQ/L (98-107); CREATININE FOR GFR 0.92 MG/DL (0.55-1.30); GLOMERULAR FILTRATION RATE > 60.0 (>51); GLUCOSE, FASTING 127 MG/DL (70-100); POTASSIUM SERUM 4.2 MEQ/L (3.5-5.1); SODIUM LEVEL 137 MEQ/L (136-145); TOTAL PROTEIN 7.3 GM/DL (6.4-8.2)
== END ==
LOC: M LAB REF 17:06
PROVIDERS: ATTEND Nurse Practitioner Family
DX: Z01.812 Encounter for preprocedural laboratory examination (principal)

== ENCOUNTER → 2021-05-23 | Outpatient (CLI) | payer MEDICARE, MEDICAID ==
[~2021-05-23] MED LIST changes: -CHLO125TA PO; -FLON1SPR; -LISI20TA33 PO; -LORA-243 PO; +NEUR300C; -NEUR300C PO; -OMEP1CAP73 PO; -SPIR-10 PO; -VITMTA PO
--- NOTE | 2021-05-23 13:38 | REP ---
INDICATION: ENCOUNTER FOR OTHER PREPROCEDURAL EXAMINATION COMPARISON: 01/08/2018. TECHNIQUE: PA/Lateral FINDINGS: Lungs: Clear, no infiltrate. Heart: Normal in size. Mediastinum: Mediastinal silhouette unremarkable. Pleural angles: Unremarkable.. Bones and soft tissues: Unremarkable. IMPRESSION: No acute pulmonary disease. <Electronically signed by Miller Dawkins > 05/23/21 [id number]
== END ==
LOC: M RAD 13:07
PROVIDERS: ATTEND Nurse Practitioner Family
DX: Z01.818 Encounter for other preprocedural examination (principal)

== ENCOUNTER → 2021-05-31 | Outpatient (CLI) | payer MEDICARE, MEDICAID ==
[~2021-05-31] MED LIST changes: +CHLO125TA PO; +FLON1SPR; +LISI20TA33 PO; +LORA-243 PO; -NEUR300C; +NEUR300C PO; +OMEP1CAP73 PO; +SPIR-10 PO; +VITMTA PO
== END ==
LOC: M LABSMTC 10:10
PROVIDERS: ATTEND Anesthesiology
DX: Z01.812 Encounter for preprocedural laboratory examination (principal); Z20.822 Contact with and (suspected) exposure to COVID-19

== ENCOUNTER 2021-06-05 06:39 | Observation (INO) | payer MEDICARE, MEDICAID ==
[~2021-06-05] VITALS: Ht 162.6 cm; Wt 81.6 kg
[~2021-06-05 06:39] MED LIST changes: +LIDOCAINE 1% MDV 20ML VIAL SQ PRN
[2021-06-05] MEDS ORDERED: HEPARIN SOD (PORCINE) 5000UNITS/ML 1ML VIAL/SYRINGE SQ ONE (07:00)
[2021-06-05] MEDS ORDERED: LR 1,000 ML IV ONE (07:00)
[2021-06-05] MEDS: ceFAZolin SOD 1 GM in D5W MINI-BAG PLUS 50 ML IV SCH ×4 (07:15→22:58)
[2021-06-05] MEDS ORDERED: ROCURONIUM BROMIDE 50 MG/5 ML VIAL As Ordered ONE ×3 (12:08→15:18)
[2021-06-05] MEDS ORDERED: dexameTHASONE 4 MG/ML 1ML VIAL (J1100 PER 1MG) As Ordered ONE (12:08)
[2021-06-05] MEDS ORDERED: propofoL 200 MG/20 ML VIAL As Ordered ONE ×2 (12:08→17:44)
[2021-06-05] MEDS ORDERED: MIDAZOLAM INJ 2MG/2ML VIAL (J2250 PER 1MG) As Ordered ONE (12:08)
[2021-06-05] MEDS ORDERED: LIDOCAINE 2% 100MG/5ML SDV (FOR ANES.) As Ordered ONE (12:08)
[2021-06-05] MEDS ORDERED: fentaNYL 250 MCG/5 ML INJECTION (J3010) As Ordered ONE (12:08)
[2021-06-05] MEDS ORDERED: BUPIVACAINE LIPOSOME/PF 1.3% 20ML VIAL (13.3MG/ML)(EXPAREL)(C9290 PER1MG) As Ordered ONE (12:49)
[2021-06-05] MEDS ORDERED: hydrALAZINE 20MG/ML 1ML VIAL (J0360 PER 20MG) As Ordered ONE (13:41)
[2021-06-05] MEDS ORDERED: fentaNYL 100 MCG/2 ML INJECTION (J3010) As Ordered ONE (14:02)
[2021-06-05] MEDS ORDERED: ACETAMINOPHEN 1000MG 100ML IV BTL (OFIRMEV) (J0131 PER 10MG) As Ordered ONE (14:11)
[2021-06-05] MEDS ORDERED: HYDROmorphone HCL 2 MG/ML 1ML VIAL As Ordered ONE (14:11)
[2021-06-05] MEDS ORDERED: SUGAMMADEX SODIUM 500 MG/5 ML VIAL (BRIDION) As Ordered ONE ×2 (14:11→16:01)
[2021-06-05] MEDS ORDERED: SEVOFLURANE INHAL SOLN 250 ML BTL As Ordered ONE (14:31)
[2021-06-05] MEDS ORDERED: ONDANSETRON 4MG/2ML VIAL As Ordered ONE (14:45)
[2021-06-05] MEDS ORDERED: ceFAZolin 1GM VIAL (J0690 PER 500MG) As Ordered ONE (16:11)
[2021-06-05] MEDS ORDERED: ONDANSETRON 4MG/2ML VIAL IV PRN ×2 (16:45→17:30)
[2021-06-05] MEDS ORDERED: LR 1,000 ML IV SCH ×2 (16:45→17:30)
[2021-06-05] MEDS ORDERED: MORPHINE 2 MG/ML 1ML VIAL (J2270) IV PRN (16:45)
[2021-06-05] MEDS ORDERED: ACETAMINOPHEN TAB 650MG DOSE (2X325MG) PO PRN (16:45)
--- NOTE | 2021-06-05 17:00 | REP ---
INDICATION: pre op, right breast. COMPARISON: None. TECHNIQUE/RADIOTRACER AND DOSE: This procedure was performed by Elizabeth Menjivar [facility], under the direct supervision of Dr. Dawkins. Images were reviewed with Dr. Dawkins prior to dictation. The risks and benefits of the procedure were explained to the patient and informed consent was obtained both orally and written. Directly prior to the start of the procedure, a formal timeout was done in the exam room. Using topical anesthetic and sterile technique 1.003 mCi of filtered Technetium-99m sulfur colloid was injected subdermally in 8 fractionated periareolar injections. FINDINGS: Images obtained 1 hour after injection show a dominant right axillary focus with smaller adjacent foci. IMPRESSION: There is a dominant right axillary focus with smaller adjacent foci. <Electronically signed by Elizabeth Menjivar > 06/05/21 [id number] <Electronically signed by Miller Dawkins > 06/05/21 [id number]
--- NOTE | 2021-06-05 17:16 | ROOPDOC ---
[facility] Report Of Operation Report of Operation DATE OF PROCEDURE: 06/05/21 PREOPERATIVE DIAGNOSIS: Bilateral breast acquired deformity. POSTOPERATIVE DIAGNOSIS: same PROCEDURE: Bilateral breast reconstruction s/p bilateral lumpectomies. SURGEON: Dr Ornelas [employer] ARCHITECT: Dr. Hurtado ANESTHESIA: General ESTIMATED BLOOD LOSS: 100 cc FINDINGS: bilateral breast acquired deformity. SPECIMENS: Right breast 253 gm, Left breast 255 gm COMPLICATIONS: none REPLACED: none DRAINS: 15 Fr round x 2 POSTOPERATIVE CONDITION: stable DESCRIPTION OF PROCEDURE: This is a 56-year-old female who was diagnosed with right breast cancer and left breast atypia. Patient is scheduled for bilateral lumpectomies with right axillary sentinel node biopsy with breast surgery team with immediate reconstruction of both breasts via breast reduction approach. Patient was marked in preoperative holding area with Dr. Hurtado at the bedside to accommodate expected breast deficit which would result from her part of the procedure. Risks, benefits, and alternatives were discussed with the patient in detail, and she is ready to proceed. The day of surgery, she was marked in the upright position and informed consent was obtained. She measures 29 cm from sternal notch to nipple on both sides, IMF at 22 cm bilaterally. She was brought into the operating room and placed in the supine position. Preoperative antibiotics and 5000 units heparin subcutaneous were given. Sequential pneumatic stocking were placed on the lower calves. General anesthesia was induced. She was prepped and draped in the usual sterile fashion. Dr. Hurtado started her part of the procedure with needle localization and right axillary lymph node biopsy which would be dictated in her op report. After that part of the procedure was completed we turned our attention to the right breast. Her nipple areolar complex was outlined 42 mm in diameter, and the patient was marked according superior medial pedicle. We started our incision by scoring the nipple areolar complex area, and then dissection was performed on the superior lateral area by Dr. Hurtado, she had completed her lumpectomy part of the procedure. At this point we have reexamined the defect on the right breast and continued resection until the inferior lateral portion of the breast was resected. Hemostasis was obtained using electrocautery. The pedicle was de- epithelialized using Sahni scissors, good perfusion to the nipple at all times. Wound was irrigated with Ancef solution. We used Exparel 6 cc for local anesthesia to infiltrate in the Pectoralis muscle as well as the breast tissue. Than, pedicle was turned superior to its new location at 22 cm from sternal notch. The mound was re-created using conforming 0 Vicryl sutures. Pillars were closed with interrupted 3-0 Monocryl sutures. The vertical limb was 7.5 cm. Excess tissue inferiorly was measured and resected, creating the horizontal scar. Nipple area complex was brought into view through the new opening and sutured in place with 3-0 and 4-0 Monocryl sutures and a 5-0 plain. A 15 round Haitian drain was placed through the lateral portion of the horizontal incision. Then we turned our attention to the left side. Her nipple areolar complex was outlined 42 mm in diameter, and the patient was marked according superior medial pedicle. We started our incision by scoring the nipple areolar complex area, and then dissection was performed on the superior lateral area by Dr. Hurtado, she had completed her lumpectomy part of the procedure. At this point we have reexamined the defect on the right breast and continued resection until the inferior lateral portion of the breast was resected. Hemostasis was obtained using electrocautery. The pedicle was de-epithelialized using Sahni scissors, good perfusion to the nipple at all times. Wound was irrigated with Ancef solution. We used Exparel 6 cc for local anesthesia to infiltrate in the Pectoralis muscle as well as the breast tissue. Than, pedicle was turned superior to its new location at 22 cm from sternal notch. The mound was re- created using conforming 0 Vicryl sutures. Pillars were closed with interrupted 3-0 Monocryl sutures. The vertical limb was 7.5 cm. Excess tissue inferiorly was measured and resected, creating the horizontal scar. Nipple area complex was brought into view through the new opening and sutured in place with 3-0 and 4-0 Monocryl sutures and a 5-0 plain. A 15 round Haitian drain was placed through the lateral portion of the horizontal incision. Remaining Exparel injected in the horizontal incision. Total Exparel use 15 cc. Resected tissue sent to pathology in two specimens right and left breast tissue. Right breast 253 grams, left breast 255 grams. Dressings were applied to vertical and horizontal incision: Prinio strips and Dermabond. Nipples areolar complex: Xeroform and a bulky dressing with a surgical bra. Patient was extubated in the operating room without difficulty and was transferred to the recovery room in stable condition. ARUNA ORNELAS DO Jun 05, 2021 17:16
--- NOTE | 2021-06-05 17:16 | POST-OPPD ---
Postoperative Procedure Note Date Of Procedure: Jun 05, 2021 PREOPERATIVE DIAGNOSIS: Bilateral breast acquired deformity. POSTOPERATIVE DIAGNOSIS: same PROCEDURE: Bilateral breast reconstruction s/p bilateral lumpectomies. SURGEON: Dr Ornelas [employer]ARD[employer]OD FINISHER: Dr. Hurtado ANESTHESIA: General ESTIMATED BLOOD LOSS: 100 cc FINDINGS: bilateral breast acquired deformity. SPECIMENS: Right breast 253 gm, Left breast 255 gm COMPLICATIONS: none REPLACED: none DRAINS: 15 Fr round x 2 POSTOPERATIVE CONDITION: stable ARUNA ORNELAS DO Jun 05, 2021 17:16
[2021-06-05] MEDS ORDERED: METOCLOPRAMIDE INJ 10MG/2ML VIAL (J2765 PER 1) As Ordered ONE (17:25)
[2021-06-05] MEDS ORDERED: METOCLOPRAMIDE INJ 10MG/2ML VIAL (J2765 PER 1) IV PRN (17:30)
[2021-06-05] MEDS ORDERED: PERCOCET 5MG/325MG TAB PO PRN (17:30)
[2021-06-05] MEDS ORDERED: fentaNYL 100 MCG/2 ML INJECTION (J3010) IV PRN (17:30)
[2021-06-05] MEDS ORDERED: ALBUTEROL 90 MCG/ACT 8GM HFA INHALER INH PRN (17:35)
[2021-06-05] MEDS ORDERED: KETOROLAC 60MG 2ML VIAL As Ordered ONE (17:43)
[2021-06-05 19:00] VITALS: BP 150/86
[2021-06-05 19:52] LABS: ALBUMIN 3.4 GM/DL (3.2-5.2); ALT/SGPT 27 U/L (12-78); BILIRUBIN,TOTAL 0.3 MG/DL (0.2-1.0); BLOOD UREA NITROGEN 14 MG/DL (7-18); CARBON DIOXIDE LEVEL 25 MEQ/L (21-32); CHLORIDE LEVEL 108 MEQ/L (98-107); CREATININE FOR GFR 0.88 MG/DL (0.55-1.30); GLOMERULAR FILTRATION RATE > 60.0 (>51); GLUCOSE, FASTING 161 MG/DL (70-100); SODIUM LEVEL 138 MEQ/L (136-145); TOTAL PROTEIN 6.7 GM/DL (6.4-8.2)
[2021-06-05 19:53] LABS: BASO % 0.3 % (0.0-1.0); EOS % 0.1 % (0.0-3.0); HEMATOCRIT 41.4 % (36.0-47.0); HEMOGLOBIN 13.5 g/dl (12.0-15.5); LYMPH # 1.6 10^3/uL (1.5-5.0); LYMPH % 12.9 % (24.0-44.0); MEAN CORPUSCULAR HEMOGLOBIN 28.5 pg (27.0-33.0); MEAN CORPUSCULAR HGB CONC 32.6 g/dl (32.0-36.5); MEAN CORPUSCULAR VOLUME 87.5 fl (80.0-96.0); MONO # 0.2 10^3/uL (0.0-0.8); MONO % 1.7 % (2.0-8.0); NEUTROPHILS # 10.7 10^3/uL (1.5-8.5); NEUTROPHILS % 84.5 % (36.0-66.0); PLATELET COUNT, AUTOMATED 226 10^3/uL (150-450); RED BLOOD COUNT 4.73 10^6/uL (4.00-5.40); WHITE BLOOD COUNT 12.6 10^3/uL (4.0-10.0)
[2021-06-05 20:00] VITALS: BP 159/89
[2021-06-05] MEDS: traMADol 50 MG TAB PO PRN (21:23)
[2021-06-05] MEDS: HEPARIN SOD (PORCINE) 5000UNITS/ML 1ML VIAL/SYRINGE SQ SCH (21:23)
[2021-06-05] MEDS ORDERED: ceFAZolin SOD 2 GM in IV 1 EA IV SCH (22:00)
[2021-06-05 23:14] VITALS: BP 143/84
[2021-06-06 01:53] VITALS: BP 144/59
[2021-06-06] MEDS: traMADol 50 MG TAB PO PRN ×2 (04:51→08:54)
[2021-06-06] MEDS: ceFAZolin SOD 1 GM in D5W MINI-BAG PLUS 50 ML IV SCH ×2 (04:51→05:42)
[2021-06-06] MEDS: HEPARIN SOD (PORCINE) 5000UNITS/ML 1ML VIAL/SYRINGE SQ SCH (04:51)
[2021-06-06 06:42] LABS: HEMATOCRIT 34.9 % (36.0-47.0); HEMOGLOBIN 11.9 g/dl (12.0-15.5); MEAN CORPUSCULAR HEMOGLOBIN 29.3 pg (27.0-33.0); MEAN CORPUSCULAR HGB CONC 34.1 g/dl (32.0-36.5); PLATELET COUNT, AUTOMATED 222 10^3/uL (150-450); RED BLOOD COUNT 4.06 10^6/uL (4.00-5.40)
[2021-06-06 06:43] VITALS: BP 145/65
[2021-06-06 07:11] LABS: BLOOD UREA NITROGEN 11 MG/DL (7-18); CALCIUM LEVEL 8.4 MG/DL (8.5-10.1); CARBON DIOXIDE LEVEL 24 MEQ/L (21-32); CHLORIDE LEVEL 105 MEQ/L (98-107); CREATININE FOR GFR 0.78 MG/DL (0.55-1.30); GLOMERULAR FILTRATION RATE > 60.0 (>51); GLUCOSE, FASTING 130 MG/DL (70-100); POTASSIUM SERUM 3.5 MEQ/L (3.5-5.1); SODIUM LEVEL 140 MEQ/L (136-145)
[2021-06-06 08:41] VITALS: BP 136/77
[2021-06-06] MEDS ORDERED: CARVedilol 12.5 MG TAB PO SCH (09:00)
[2021-06-06] MEDS ORDERED: CHLORTHALIDONE 12.5MG PER 1/2 TABLET PO SCH (09:00)
[2021-06-06] MEDS ORDERED: OMEPRAZOLE 20 MG CAP PO SCH (09:00)
[2021-06-06] MEDS ORDERED: SPIRONOLACTONE 12.5MG PER 1/2 TABLET PO SCH (09:00)
[2021-06-06] MEDS ORDERED: ATORVASTATIN 20 MG TAB PO SCH (09:00)
[2021-06-06] MEDS ORDERED: TRAM50TA2 PO (09:35)
[2021-06-06 10:00] VITALS: BP 136/75
--- NOTE | 2021-06-06 10:00 | HPE ---
HISTORY AND PHYSICAL DATE OF ADMISSION: 06/05/2021 CHIEF COMPLAINT: Abnormal mammogram with spiculated mass of the right breast for lumpectomy. HISTORY OF PRESENT ILLNESS: This is a 56-year-old female with an abnormal mammogram that was done on 02/26/2021 showing a spiculated mass measuring 2.7 cm in the right breast, status post ultrasound on 03/07/2021 showing an irregular mass at the 10 o'clock position measuring 2.6 cm. Patient underwent right breast ultrasound guided biopsy on 03/26/2021 with breast surgeon, Dr. ANAHI JOLLEY. Final diagnosis on cytology showed invasive ductal carcinoma Grade 2 with stromal sclerosis, focal invasive ductal carcinoma in situ, solid and cribriform with nuclear Grade 2. Patient was medically optimized and underwent lumpectomy on 06/05/2021. Hospitalist was asked to help manage patient's medical problems. Patient otherwise denies fevers, chills, cough, shortness of breath or chest pain, pressure, tightness, lightheadedness or dizziness, nausea, vomiting, abdominal, diarrhea, abdominal pain, weight gain, weight loss, or changes in appetite, dysuria, urgency or frequency, fever or chills, or flank pain. No polyphagia, polyuria or polydipsia. Patient has no skin changes. In the PACU, the patient's blood pressure was 165 systolic with no complaints of headache or changes in vision. Patient is admitted post lumpectomy of the right breast. PAST MEDICAL HISTORY: Hypertension, chronic back pain, degenerative disc disease of the lumbar spine, depression, anxiety, seasonal allergies. congestive heart failure in 2009, repeat echocardiogram in 2012 within normal limits, obesity, poor dentition, chronic leukocytosis usually with white count of 12 to 14, elevated PTT, fibromyalgia, carpal tunnel, Factor VIII deficiency. PAST SURGICAL HISTORY: Lumpectomy on 06/05/2021, ultrasound guided biopsy of the biopsy of the breast in 2020, D and C in the 1990s, T and A in 1970s, lens implant in 2010 and 2011, skin biopsy (benign), laminectomy L3-L4, L4-L5 with spinal fusion, lipoma in the lower back, hematoma. HOME MEDICATIONS: 1. Atorvastatin. 2. Coreg. 3. Spironolactone. 4. Chlorthalidone. 5. Fluticasone. 6. Gabapentin. 7. Flonase. 8. Omeprazole. 9. Lisinopril. 10.Zyrtec. 11.Albuterol. 12.Fentanyl patch. 13.Lyrica. 14.Oxycodone. 15.Denavir. 16.Prilosec. 17.Hydroxyzine. SOCIAL HISTORY: Active smoker. Social alcohol use three to five drinks per day. ALLERGIES: Codeine. ALLERGIES: Codeine, Butrans transdermal patch. FAMILY HISTORY: Father in his 50s, mother alive. Father of emphysema. REVIEW OF SYSTEMS: As per HPI. A 12 point system is otherwise negative. PHYSICAL EXAMINATION: Temperature is 96.8, pulse is 73, respiratory rate is 16, blood pressure is 147/81, 97% on room air. In general, the patient is awake, alert and oriented in no distress, speaks in full sentences. No JVD or thyromegaly. Status post right breast lumpectomy currently with a binder, two drains with 10 ml on the right, on the left about 20 ml of bloody discharge. Lungs are clear to auscultation. No wheezing or rales. Heart is S1 and S2, sinus rhythm, no murmurs, rubs or gallops. Abdomen is obese, soft, nontender and nondistended. Positive bowel sounds. Extremities: No cyanosis or clubbing, or any pitting edema. LABORATORY DATA: Pending. ASSESSMENT AND PLAN: This is a 56-year-old female with abnormal mammogram of the right breast status post ultrasound guided biopsy showing invasive ductal carcinoma status post lumpectomy on . IMPRESSION: 1. Right breast ER positive [place] positive HER2-moses negative invasive ductal carcinoma status post lumpectomy. Postop management per breast surgeon and plastic surgeon. Pain control bowel regimen. DVT prophylaxis with compression stockings, two drains. Activity level per surgery. 2. Hypertension, resumed on home medications. Coreg, spironolactone, chlorthalidone, monitor patient's creatinine while the patient is taking these diuretics since she was currently NPO. May resume a 2 gram sodium diet. 3. Hyperlipidemia, continue on Lipitor. 4. Active smoker, tobacco cessation counseling, nicotine patch. 5. Albuterol as needed. 6. Obesity, BMI of 31 complicating care. [facility]
--- NOTE | 2021-06-06 11:15 | IPNPDOC ---
Subjective General Date Seen: Jun 06, 2021 Subject Chief Complaint/History The patient is a 56-year-old female admitted with a reason for visit of Right Breast Cancer Left Atypical Ductal Hyperplas. Patient status post bilateral breast reconstruction status post bilateral lumpectomy and right sentinel lymph node biopsy. Postop day 1. Patient is doing well, pain controlled, ambulating to the bathroom and in the hallway. Tolerating regular diet. Current Medications Current Medications Current Medications Medications (Trade) Dose Ordered Sig/Delvis Route PRN Reason Start Time Stop Time Status Last Admin Dose Admin Acetaminophen (Tylenol Tab) 650 mg Q6H PRN PO MILD PAIN (PS 1-4) 06/05/21 16:45 06/06/21 11:07 DC Albuterol Sulfate (Proventil, Ventolin Hfa) 1 puff Q4HP PRN INH CONGESTION 06/05/21 17:35 06/06/21 11:07 DC Atorvastatin Calcium (Lipitor) 40 mg DAILY PO 06/06/21 09:00 06/06/21 11:07 DC 06/06/21 08:39 Carvedilol (COReg) 25 mg DAILY PO 06/06/21 09:00 06/06/21 11:07 DC 06/06/21 08:41 Cefazolin Sodium 1 gm/Dextrose 50 ml @ 100 mls/hr Q8H IV 06/05/21 22:00 06/06/21 06:29 DC 06/06/21 04:51 Cefazolin Sodium 1 gm/Dextrose 50 ml @ 100 mls/hr Q8H IV 06/05/21 22:30 06/06/21 06:59 DC 06/06/21 05:42 Cefazolin Sodium 1 gm/Dextrose 50 ml @ 200 mls/hr Q15M IV 06/05/21 07:00 06/05/21 07:29 DC 06/05/21 16:15 Cefazolin Sodium/ Dextrose 2 gm/IV Miscellaneous Supplies 50 ml @ 75 mls/hr Q8H IV 06/05/21 22:00 06/05/21 17:08 DC Chlorthalidone (Hygroton, Chlorthalidone) 12.5 mg DAILY PO 06/06/21 09:00 06/06/21 11:07 DC Fentanyl Citrate (Sublimaze) 25 mcg Q5MP PRN IV PAIN LEVEL 8-10 06/05/21 17:30 06/05/21 19:30 DC Heparin Sodium (Porcine) (Heparin) 5,000 units Q8H SQ 06/05/21 22:00 06/06/21 11:07 DC 06/06/21 04:51 Lactated Ringer's 1,000 ml @ 75 mls/hr [id number] IV 06/05/21 16:45 06/06/21 00:41 DC Lactated Ringer's 1,000 ml @ 100 mls/hr Q10H IV 06/05/21 17:30 06/05/21 19:30 DC 06/05/21 18:05 Lidocaine HCl (LIDOCAINE 1% MDV 20ml) 0.1 ml ONCE PRN SQ DISCOMFORT BEFORE IV START 06/05/21 06:00 06/06/21 11:07 DC Metoclopramide HCl (REGLAN INJection) 10 mg Q6HP PRN IV NAUSEA OR VOMITING 06/05/21 17:30 06/05/21 17:44 DC 06/05/21 17:29 Morphine Sulfate (Morphine Sulfate Inj) 2 mg Q4H PRN IV PAIN LEVEL 8-10 06/05/21 16:45 06/06/21 11:07 DC Omeprazole (PriLOSEC) 20 mg DAILY PO 06/06/21 09:00 06/06/21 11:07 DC 06/06/21 08:39 Ondansetron HCl (ZOFRAN INJection) 4 mg Q4H PRN IV NAUSEA OR VOMITING 06/05/21 16:45 06/06/21 11:07 DC Ondansetron HCl (ZOFRAN INJection) 4 mg Q4HP PRN IV NAUSEA OR VOMITING 06/05/21 17:30 06/05/21 19:30 DC Oxycodone/ Acetaminophen (Percocet 5mg/ 325mg Tablet) 1 tab ASDIRECTED PRN PO PAIN LEVEL 1-4 06/05/21 17:30 06/05/21 19:30 DC 06/05/21 18:05 Spironolactone (Aldactone) 12.5 mg DAILY PO 06/06/21 09:00 06/06/21 11:07 DC 06/06/21 08:41 Tramadol HCl (Ultram) 50 mg Q4HP PRN PO MODERATE PAIN (PS 5-7) 06/05/21 16:45 06/06/21 11:07 DC 06/06/21 08:54 Allergies Coded Allergies: codeine (Verified Allergy, Intermediate, hives, 05/29/21) amitriptyline (Verified Adverse Reaction, Mild, irritable, 05/29/21) duloxetine (Verified Adverse Reaction, Mild, irritable, 05/29/21) Objective Physical Examination Examination GENERAL APPEARANCE:Patient seen, laying in bed, awake, alert, and oriented. Comfortable, in no acute distress. SKIN: Warm and moist. BREAST: Right and left soft, non-tender incisions intact. OMID drains: 10/20 cc/24 hr. NAC: Viable, warm, symmetrical, mild post-op ecchymosis, no expanding hematoma. HEENT: Normocephalic, atraumatic. [place] palpebral conjunctiva, anicteric sclerae. Lips and mucosa appear moist. NECK: Supple, no thyromegaly. No obvious jugular venous distention. LUNGS: Clear to auscultation bilaterally. No wheezing appreciated. HEART: No chest wall abnormalities. Regular rate and rhythm with no murmurs appreciated. ABDOMEN: Abdomen is soft, non-tender, non-distended. EXTREMITIES: No edema identified. No calf tenderness. Vital Signs Vital Signs Date Time Temp Pulse Resp B/P (MAP) Pulse Ox O2 Delivery O2 Flow Rate FiO2 06/06/21 10:00 98.0 63 17 136/75 (95) 96 Room Air 06/05/21 17:06 10.0 I&Os I&O- Last 24 Hours up to 6 AM 06/06/21 05:59 Intake Total 2070 ml Output Total 765 ml Balance 1305 ml Laboratory Data Labs 24H Laboratory Tests 2 06/05/21 18:03: Immature Granulocyte % (Auto) 0.5, Neutrophils (%) (Auto) 84.5H, Lymphocytes (%) (Auto) 12.9L, Monocytes (%) (Auto) 1.7L, Eosinophils (%) (Auto) 0.1, Basophils (%) (Auto) 0.3, Neutrophils # (Auto) 10.7H, Lymphocytes # (Auto) 1.6, Monocytes # (Auto) 0.2, Eosinophils # (Auto) 0.0, Basophils # (Auto) 0.0, Nucleated Red Blood Cells % (auto) 0.0, Anion Gap 5L, Glomerular Filtration Rate > 60.0, Calcium Level 9.0, Total Bilirubin 0.3, Aspartate Amino Transf (AST/SGOT) 11, Alanine Aminotransferase (ALT/SGPT) 27, Alkaline Phosphatase 105, Total Protein 6.7, Albumin 3.4, Albumin/Globulin Ratio 1.0L 06/06/21 05:21: Nucleated Red Blood Cells % (auto) 0.0, Anion Gap 11, Glomerular Filtration Rate > 60.0, Calcium Level 8.4L CBC/BMP Laboratory Tests 06/05/21 18:03 06/06/21 05:21 Impression Status post bilateral breast reconstruction status post bilateral lumpectomies postop day 1. Dressing changed today. Patient stable for discharge. Follow-up in plastic surgery after discharge and breast surgery. Plan / VTE VTE Prophylaxis Ordered?: Yes ARUNA ORNELAS DO Jun 06, 2021 11:14
--- NOTE | 2021-06-06 12:00 | DS.PDOC ---
Discharge Summary General Date of Admission June 05, 2021 Date of Discharge June 06, 2021 Discharge Summary DISCHARGE DIAGNOSES: Right breast invasive ductal carcinoma s/p lumpectomy 06/05/21 HTN Hyperlipidemia Active Tobacco Abuse Obesity bmi 30.9 Reactive Leukocytosis DISCHARGE MEDICATIONS: SEE BELOW DISCHARGE INSTRUCTIONS: Tobacco cessation counselling provided POSTOP INSTRUCTIONS PER DR. JOLLEY/DR. ORNELAS. 1WK FU APPT DR. JOLLEY/DR. ORNELAS. PCP APPT 5DAYS HOSPITAL COURSE: This is a 56-year-old female with abnormal mammogram of the right breast status post ultrasound guided biopsy showing invasive ductal carcinoma status post lumpectomy on . 1. Right breast ER positive [place] positive HER2-moses negative invasive ductal carcinoma status post lumpectomy. Postop management per breast surgeon and plastic surgeon. Pain control bowel regimen. DVT prophylaxis with compression stockings, two drains. Activity level per surgery. 2. Hypertension, resumed on home medications. Coreg, spironolactone, chlorthalidone, monitored patient's creatinine while the patient is taking these diuretics since she was currently NPO. resumed a 2 gram sodium diet. cont torolled bp overnight. 3. Hyperlipidemia, continue on Lipitor. 4. Active smoker, tobacco cessation counseling, nicotine patch. 5. Albuterol as needed. 6. Obesity, BMI of 31 complicating care. 7. Reactive leukocytosis. no empiric abx. DISCHARGE PHYSICAL EXAMINATION: VITAL SIGNS: SEE BELOW In general, the patient isawake, alert and oriented in no distress, speaks in full sentences. HEENT: No JVD or thyromegaly. Status post right breast lumpectomy currently with a binder, two drains with bloody discharge. Lungs are clear to auscultation. No wheezing or rales. Heart is S1 and S2, sinus rhythm, no murmurs, rubs or gallops. Abdomen is obese, soft, nontender and nondistended. Positive bowel sounds. Extremities: No cyanosis or clubbing, or any pitting edema. LABORATORY DATA/ IMAGING/MICROBIOLOGY: see below Time spent on discharge: 30 minutes Vital Signs/I&Os Vital Signs Date Time Temp Pulse Resp B/P (MAP) Pulse Ox O2 Delivery O2 Flow Rate FiO2 06/06/21 10:00 98.0 63 17 136/75 (95) 96 Room Air 06/05/21 17:06 10.0 I&O- Last 24 Hours up to 6 AM 06/06/21 06:00 Intake Total 2070 ml Output Total 765 ml Balance 1305 ml Laboratory Data Labs 24H Laboratory Tests 2 06/05/21 18:03: Immature Granulocyte % (Auto) 0.5, Neutrophils (%) (Auto) 84.5H, Lymphocytes (%) (Auto) 12.9L, Monocytes (%) (Auto) 1.7L, Eosinophils (%) (Auto) 0.1, Basophils (%) (Auto) 0.3, Neutrophils # (Auto) 10.7H, Lymphocytes # (Auto) 1.6, Monocytes # (Auto) 0.2, Eosinophils # (Auto) 0.0, Basophils # (Auto) 0.0, Nucleated Red Blood Cells % (auto) 0.0, Anion Gap 5L, Glomerular Filtration Rate > 60.0, Calcium Level 9.0, Total Bilirubin 0.3, Aspartate Amino Transf (AST/SGOT) 11, Alanine Aminotransferase (ALT/SGPT) 27, Alkaline Phosphatase 105, Total Protein 6.7, Albumin 3.4, Albumin/Globulin Ratio 1.0L 06/06/21 05:21: Nucleated Red Blood Cells % (auto) 0.0, Anion Gap 11, Glomerular Filtration Rate > 60.0, Calcium Level 8.4L CBC/BMP Laboratory Tests 06/05/21 18:03 06/06/21 05:21 Discharge Medications Scheduled Atorvastatin Calcium (Atorvastatin Calcium) 40 Mg Tablet, 1 TAB PO DAILY, (Reported) Carvedilol (Carvedilol) 25 Mg Tablet, 1 TAB PO DAILY, (Reported) Chlorthalidone (Chlorthalidone) 25 Mg Tablet, 12.5 MG PO DAILY, (Reported) Fluticasone Propionate (Flonase Allergy Relief) 9.9 Ml [place].susp, 50 MCG NA DAILY, (Reported) Gabapentin (Neurontin) 300 Mg Cap, PO TID, (Reported) Lisinopril (Lisinopril) 20 Mg Tablet, 20 MG PO DAILY, (Reported) Loratadine (Loratadine) 10 Mg Tablet, 10 MG PO DAILY, (Reported) Multivitamins (Thera M Plus Tablet) 1 Each Tablet, 1 TAB PO DAILY, (Reported) Omeprazole (Omeprazole) 20 Mg Capsule.dr, 20 MG PO DAILY, (Reported) Spironolactone (Spironolactone) 25 Mg Tablet, 25 MG PO DAILY, (Reported) Scheduled PRN Albuterol Sulfate (Proair Hfa) 108 Mcg/Act Aer, 108 MCG IN Q4HP PRN for CONGESTION, (Reported) Tramadol HCl (Tramadol HCl) 50 Mg Tablet, 50 MG PO Q4HP PRN for MODERATE PAIN (PS 5-7) Allergies Coded Allergies: codeine (Verified Allergy, Intermediate, hives, 05/29/21) amitriptyline (Verified Adverse Reaction, Mild, irritable, 05/29/21) duloxetine (Verified Adverse Reaction, Mild, irritable, 05/29/21) TAB PEARSON MD Jun 06, 2021 12:00
--- NOTE | 2021-06-08 12:05 | IPNPDOC ---
Subjective General Date Seen: Jun 06, 2021 (7 am) Subject Chief Complaint/History The patient is a 56-year-old female admitted with a reason for visit of Right Breast Cancer and Left Atypical Ductal Hyperplasia, s/p b/l lumpectomy with b/l intraop wire placement, b/l oncoplasty, right axillary sentinel lymph node bx PO D 1 no acute events over night, b/l drain output low Current Medications Current Medications Current Medications Medications (Trade) Dose Ordered Sig/Delvis Route PRN Reason Start Time Stop Time Status Last Admin Dose Admin Acetaminophen (Tylenol Tab) 650 mg Q6H PRN PO MILD PAIN (PS 1-4) 06/05/21 16:45 06/06/21 11:07 DC Albuterol Sulfate (Proventil, Ventolin Hfa) 1 puff Q4HP PRN INH CONGESTION 06/05/21 17:35 06/06/21 11:07 DC Atorvastatin Calcium (Lipitor) 40 mg DAILY PO 06/06/21 09:00 06/06/21 11:07 DC 06/06/21 08:39 Carvedilol (COReg) 25 mg DAILY PO 06/06/21 09:00 06/06/21 11:07 DC 06/06/21 08:41 Cefazolin Sodium 1 gm/Dextrose 50 ml @ 100 mls/hr Q8H IV 06/05/21 22:00 06/06/21 06:29 DC 06/06/21 04:51 Cefazolin Sodium 1 gm/Dextrose 50 ml @ 100 mls/hr Q8H IV 06/05/21 22:30 06/06/21 06:59 DC 06/06/21 05:42 Cefazolin Sodium 1 gm/Dextrose 50 ml @ 200 mls/hr Q15M IV 06/05/21 07:00 06/05/21 07:29 DC 06/05/21 16:15 Cefazolin Sodium/ Dextrose 2 gm/IV Miscellaneous Supplies 50 ml @ 75 mls/hr Q8H IV 06/05/21 22:00 06/05/21 17:08 DC Chlorthalidone (Hygroton, Chlorthalidone) 12.5 mg DAILY PO 06/06/21 09:00 06/06/21 11:07 DC Fentanyl Citrate (Sublimaze) 25 mcg Q5MP PRN IV PAIN LEVEL 8-10 06/05/21 17:30 06/05/21 19:30 DC Heparin Sodium (Porcine) (Heparin) 5,000 units Q8H SQ 06/05/21 22:00 06/06/21 11:07 DC 06/06/21 04:51 Lactated Ringer's 1,000 ml @ 75 mls/hr [id number] IV 06/05/21 16:45 06/06/21 00:41 DC Lactated Ringer's 1,000 ml @ 100 mls/hr Q10H IV 06/05/21 17:30 06/05/21 19:30 DC 06/05/21 18:05 Lidocaine HCl (LIDOCAINE 1% MDV 20ml) 0.1 ml ONCE PRN SQ DISCOMFORT BEFORE IV START 06/05/21 06:00 06/06/21 11:07 DC Metoclopramide HCl (REGLAN INJection) 10 mg Q6HP PRN IV NAUSEA OR VOMITING 06/05/21 17:30 06/05/21 17:44 DC 06/05/21 17:29 Morphine Sulfate (Morphine Sulfate Inj) 2 mg Q4H PRN IV PAIN LEVEL 8-10 06/05/21 16:45 06/06/21 11:07 DC Omeprazole (PriLOSEC) 20 mg DAILY PO 06/06/21 09:00 06/06/21 11:07 DC 06/06/21 08:39 Ondansetron HCl (ZOFRAN INJection) 4 mg Q4H PRN IV NAUSEA OR VOMITING 06/05/21 16:45 06/06/21 11:07 DC Ondansetron HCl (ZOFRAN INJection) 4 mg Q4HP PRN IV NAUSEA OR VOMITING 06/05/21 17:30 06/05/21 19:30 DC Oxycodone/ Acetaminophen (Percocet 5mg/ 325mg Tablet) 1 tab ASDIRECTED PRN PO PAIN LEVEL 1-4 06/05/21 17:30 06/05/21 19:30 DC 06/05/21 18:05 Spironolactone (Aldactone) 12.5 mg DAILY PO 06/06/21 09:00 06/06/21 11:07 DC 06/06/21 08:41 Tramadol HCl (Ultram) 50 mg Q4HP PRN PO MODERATE PAIN (PS 5-7) 06/05/21 16:45 06/06/21 11:07 DC 06/06/21 08:54 Allergies Coded Allergies: codeine (Verified Allergy, Intermediate, hives, 05/29/21) amitriptyline (Verified Adverse Reaction, Mild, irritable, 05/29/21) duloxetine (Verified Adverse Reaction, Mild, irritable, 05/29/21) Objective Physical Examination Examination GENERAL APPEARANCE:Patient seen, laying in bed, awake, alert, and oriented. Comfortable, in no acute distress BREAST: Right and left soft, no palp hematoma, nipples viable and sensation intact, no ecchymosis. b/l OMID drains w minimal s/s drainage HEENT: Normocephalic, atraumatic. LUNGS: breathing comfortable on room air HEART: no tachycardia ABDOMEN: Abdomen nondistended Vital Signs Vital Signs Date Time Temp Pulse Resp B/P (MAP) Pulse Ox O2 Delivery O2 Flow Rate FiO2 06/06/21 10:00 98.0 63 17 136/75 (95) 96 Room Air 06/05/21 17:06 10.0 I&Os I&O- Last 24 Hours up to 6 AM 06/06/21 06:00 Intake Total 2070 ml Output Total 765 ml Balance 1305 ml Laboratory Data Labs 24H Laboratory Tests 2 06/05/21 18:03: Immature Granulocyte % (Auto) 0.5, Neutrophils (%) (Auto) 84.5H, Lymphocytes (%) (Auto) 12.9L, Monocytes (%) (Auto) 1.7L, Eosinophils (%) (Auto) 0.1, Basophils (%) (Auto) 0.3, Neutrophils # (Auto) 10.7H, Lymphocytes # (Auto) 1.6, Monocytes # (Auto) 0.2, Eosinophils # (Auto) 0.0, Basophils # (Auto) 0.0, Nucleated Red Blood Cells % (auto) 0.0, Anion Gap 5L, Glomerular Filtration Rate > 60.0, Calcium Level 9.0, Total Bilirubin 0.3, Aspartate Amino Transf (AST/SGOT) 11, Alanine Aminotransferase (ALT/SGPT) 27, Alkaline Phosphatase 105, Total Protein 6.7, Albumin 3.4, Albumin/Globulin Ratio 1.0L 06/06/21 05:21: Nucleated Red Blood Cells % (auto) 0.0, Anion Gap 11, Glomerular Filtration Rate > 60.0, Calcium Level 8.4L CBC/BMP Laboratory Tests 06/05/21 18:03 06/06/21 05:21 Impression 56 y o F with R breast cancer and L ADH, s/p b/l lumpectomy with b/l intraop wir e placement, b/l oncoplasty, and right sentinel lymph node bx POD1 - doing well postop - monitor drain output - drain teaching per nursing staff - Xeroform gauze to the nipples - keep surgical bra on - f/u in clinic next week - stable for d/c from breast surgery point, awaiting medical team and plastic surgery input Plan / VTE VTE Prophylaxis Ordered?: Yes ANAHI JOLLEY DO Jun 06, 2021 13:01
--- NOTE | 2021-06-08 16:28 | ROOPDOC ---
[facility] Report Of Operation Report of Operation DATE OF PROCEDURE: 06/05/21 PREPROCEDURE DIAGNOSES: right breast cancer and left atypical ductal hyperplasia POSTPROCEDURE DIAGNOSES: same PROCEDURE PERFORMED: bilateral lumpectomy with bilateral intraop wire placement, bilateral oncoplasty, and right breast sentinel lymph node biopsy SURGEON: Dr Cameron Hurtado AGRICULTURAL LENDER: Dr Amanda Jonas ANESTHESIA: general ESTIMATED BLOOD LOSS: Approximately 100 mL. COMPLICATIONS: none REMARKS: both clips, R spiculated mass and L hematoma seen in specimens PROCEDURE NOTE: INDICATIONS: Ms. Doherty is a 56-year-old woman who was found to have a suspicious right breast mass on mammogram. This was evaluated with right breast US and sonographic correlate was found. US guided biopsy of the came back as IDC, ER+, AR+, HER-2 negative, grade 2. Patient underwent preop MRI of the breast which found almost 3 cm right breast mass and suspicious left breast lesion. No suspicious axillary adenopathy was seen. No sonographic correlate was found in the left breast. MRI guided bx was done by radiology 3 hydromark clips were placed and all three came out apparently. Repeat left breast clip placement had to be done with the sono guidance at the site of hematoma. This was also done by radiology. Pathology of the left breast came back as atypical ductal hyperplasia. Both the right breast cancer and the left breast atypical ductal hyperplasia have to be removed. Patient opted for bilateral breast conservative surgery with b/l intraop wire placement and with sentinel lymph node biopsy on the right breast sentinel lymph node biopsy. She was medically cleared for surgery by her primary care doctor. Risks and possible complications of surgical procedure including bleeding, infection and injury to surrounding structures were explained to the patient and she wished to proceed. Consent was signed. My initials were placed on the operative site. Subcutaneous injection of 5000 units of heparin was done in Preop. The injection of radioactive tracer was done in radiology department preoperatively. Lymphoscintigraphy imaging was reviewed in preop. Dr Jonas marked patient in the preop area. DETAILS: Patient was taken to the operating room and placed on the operating room table. A sign in was called stating patients name, date of and the procedure to be done. Preoperative antibiotics were infused. Smooth induction of general anesthesia was done. Patients hands were extended on arm rests. Care was taken not to over extend the arms. Pillow was placed under the knees and a foam was placed under the heels. Sequential compression devices were placed and assured to function correctly. Procedure was started with bilateral breast intraop wire localization. Appropriate time out was done and patients name, date of , and the procedure to be done were confirmed. Procedure was started with left breast wire placement. Left breast was cleaned by me. Intraoperative ultrasound was used to confirm location of the Hydromark clip. Location of the clip was marked on the skin as well. 21 G Kopans Breast Lesion Localization Needle was used to place 25 cm wire through the clip. The end of the wire was passed a centimeter deep. The images were captured confirming adequate placement of the localizing wire. Vegetable Packer assisted with the wire placement. Next, our attention was turned toward the right breast. Right breast was cleaned by me. Intraoperative ultrasound was used to confirm location of the Hydromark clip. Location of the clip was marked on the skin as well. 21 G Kopans Breast Lesion Localization Needle was used to place 25 cm wire through the lesion. The end of the wire was passed a centimeter deep. The images were captured confirming adequate placement of the localizing wire. Vegetable Packer assisted with the wire placement. Next, patients bilateral breast and right axilla were prepped and draped in the usual fashion. Care was taken not to displace the wires. Appropriate time out was done again prior second part of the procedure. Patients name, date of , and the procedure to be done were confirmed. Procedure was started with right sentinel lymph node biopsy. Neoprobe was used to locate area of maximum intensity of the signal. An incision was made with s calpel number 15 at the inferior aspect of axillary hair line in the right axilla where the maximum signal was identified. The sharp and blunt dissection was continued through the subcutaneous adipose tissue. Clavipectoral fascia was opened. Neoprobe was used to guide the dissection. The lymph nodes were somewhat difficult to dissect and were surrounded by fibrotic tissue. First s entinel lymph node was identified and excised. The ex-vivo 10 second count was [id number]. Second sentinel lymph node was identified and excised as well. The ex- vivo 10 second count was [id number]. There was a third palpable lymph node identified in the deep posterior central axilla. This lymph node did not have any signal but was excised due to the fact that it was palpable and appeared harder than surrounding tissues. The specimens were labeled with patients name and sent to pathology. No additional lymph nodes with high radioactive signal were identified. The 10 second count of the background was 29. Adequate hemostasis was assured. Local anesthetic using Exparel, was injected into surrounding tissues. Wound was irrigated. Clavipectoral fascia was closed with 3-0 Vicryl interrupted suture. Dermal layer was closed at the end of the case with 3-0 Monocryl and skin was closed with 4-0 Monocryl. Surgical glue was applied to the incision at the end of the procedure. Next, our attention was turned toward the right breast. Dr. Jonas at this time provided the access to the breast tissue by making an incision along the previously marked Dsouza Pattern. Next, I raised the subcutaneous skin flaps in the upper right breast to allow access to the breast cancer. The skin island th rough which the wire was placed was excised with the specimen. Wide excision was done of the palpable mass with centrally placed wire. Intraop ultrasound was used to guide the dissection. The Hydromark clip was identified in the tissue with intraoperative hockey stick ultrasound probe. The end of the wire was seen deep in the specimen. The right lumpectomy specimen was carefully removed from the breast keeping its proper orientation and moved to the back table where margins were marked with the surgical inking kit following the standard colors recommendations. Specimen was then placed on the grid and placed in [employer] Specimen Imaging System. The image revealed the wire, spiculated mass and the Hydromark in the specimen. It appeared that the margins of the right breast lumpectomy were adequate and away from the spiculated mass. No additional margin reexcision was warranted. The specimen was labeled with patients name and right lumpectomy and sent to pathology. The specimen measured 10 x 9 cm. At this time the right lumpectomy site was irrigated and adequate hemostasis was assured. Dr. France assistance was critical in obtaining adequate hemostasis and fast progression of the case. Additional local anesthetic was injected into surrounding tissues. Five clips were placed to ade the cavity. Next, Dr Jonas proceeded with rearrangement of remaining right breast tissues and closure of the right breast using dsouza pattern approach. Please see Dr France operative note for details of the procedure. [address] in the right breast. Total weight of the right breast tissue removed was 253 mg. At this time, our attention was turned to the left breast. Clean instruments were used for the left breast surgery. Clean drapes were placed and gloves were changed. Dr. Jonas provided the access to the breast tissue by making an incision along the previously marked Dsouza Pattern. Next, I raised the subcutaneous skin flaps in the upper left breast to allow access to the left atypical ductal hyperplasia. The skin island through which the wire was placed was excised with the specimen. Wide excision was done of the lesion marked by the centrally placed hydromark and wire. Intraop ultrasound was used to guide the dissection. The Hydromark clip was identified in the tissue with intraoperative hockey stick ultrasound probe. The end of the wire was seen deep in the specimen. The left lumpectomy specimen was carefully removed from the breast keeping its proper orientation and moved to the back table where margins were marked with the surgical inking kit following the standard colors recommendations. Specimen was then placed on the grid and placed in [employer] Specimen Imaging System. The image revealed the wire, previous hematoma site and the Hydromark in the specimen. It appeared that the margins of the right breast lumpectomy were adequate and away from the clip site. No additional margin reexcision was warranted. The specimen was labeled with patients name and left lumpectomy and sent to pathology. The specimen measured 9.5 x 7.5 cm. At this time the left lumpectomy site was irrigated and adequate hemostasis was assured. Dr. France assistance was critical in obtaining adequate hemostasis and fast progression of the case. Additional local anesthetic was injected into surrounding tissues. Clips were not placed at the lumpectomy site since there is no confirmed diagnosis of cancer. Next, Dr Jonas proceeded with rearrangement of remaining right breast tissues and closure of the right breast using dsouza pattern approach. Please see Dr France operative note for details of the procedure. [address] in the left breast. Total weight of the right breast tissue removed was 255mg. Xeroform was placed over the nipples covered with the gauze. Surgical Bra was placed. Sponge and instrument counts were done and were correct. Patient emerged from the anesthesia without any problems Patient tolerated procedure well and was taken to recovery unit in stable condition. ANAHI HURTADO DO Jun 06, 2021 13:01
== END 2021-06-06 11:00 | disposition home or self-care (01) ==
LOC: M SDC 06:39 → M MS5PR 06:40 → M SDC 18:45 → M MS5PR 06-06 11:00 → M SDC 06-06 11:00
PROVIDERS: ADMIT Surgery; ATTEND Surgery
DX: C50.911 Malignant neoplasm of unspecified site of right female breast (principal); N60.92 Unspecified benign mammary dysplasia of left breast; Z17.0 Estrogen receptor positive status [ER+]; R92.8 Other abnormal and inconclusive findings on diagnostic imaging of breast; Z98.890 Other specified postprocedural states; Z79.899 Other long term (current) drug therapy; Z79.02 Long term (current) use of antithrombotics/antiplatelets; M79.7 Fibromyalgia; I10 Essential (primary) hypertension; F32.9 Major depressive disorder, single episode, unspecified; E78.00 Pure hypercholesterolemia, unspecified; F43.10 Post-traumatic stress disorder, unspecified; F41.9 Anxiety disorder, unspecified; D66 Hereditary factor VIII deficiency; F31.9 Bipolar disorder, unspecified; K21.9 Gastro-esophageal reflux disease without esophagitis; Z88.5 Allergy status to narcotic agent; E66.9 Obesity, unspecified; F17.218 Nicotine dependence, cigarettes, with other nicotine-induced disorders; Z88.8 Allergy status to other drugs, medicaments and biological substances; R06.2 Wheezing
CPT/HCPCS: 19125; 19318; 36415; 38525; 76942; 78195; 80048; 80053; 81025; 85025; 85027; 86850; 86900; 86901; 88305; 88307; 88342; 96365; 96366; 96372; 97161; 97165; 97530; A9541; C9290; G0378; J0131; J0360; J0690; J1100; J1170; J1644; J2250; J2405; J2765; J3010

== ENCOUNTER → 2021-06-19 | Outpatient (CLI) | payer MEDICARE, MEDICAID ==
[~2021-06-19] MED LIST changes: -LIDOCAINE 1% MDV 20ML VIAL SQ PRN; +TRAM50TA2 PO
[2021-06-19 15:35] LABS: HEMATOCRIT 39.2 % (36.0-47.0); HEMOGLOBIN 13.2 g/dl (12.0-15.5); MEAN CORPUSCULAR HEMOGLOBIN 28.8 pg (27.0-33.0); MEAN CORPUSCULAR HGB CONC 33.7 g/dl (32.0-36.5); MEAN CORPUSCULAR VOLUME 85.4 fl (80.0-96.0); PLATELET COUNT, AUTOMATED 288 10^3/uL (150-450); RED BLOOD COUNT 4.59 10^6/uL (4.00-5.40); WHITE BLOOD COUNT 11.9 10^3/uL (4.0-10.0)
[2021-06-19 15:53] LABS: INR 0.96; PROTHROMBIN TIME 13.1 SECONDS (12.7-14.5)
[2021-06-19 16:00] LABS: ALBUMIN 3.6 GM/DL (3.2-5.2); ALT/SGPT 31 U/L (12-78); BILIRUBIN,TOTAL 0.3 MG/DL (0.2-1.0); BLOOD UREA NITROGEN 11 MG/DL (7-18); CALCIUM LEVEL 9.8 MG/DL (8.5-10.1); CARBON DIOXIDE LEVEL 27 MEQ/L (21-32); CHLORIDE LEVEL 100 MEQ/L (98-107); CREATININE FOR GFR 0.78 MG/DL (0.55-1.30); GLOMERULAR FILTRATION RATE > 60.0 (>51); GLUCOSE, FASTING 83 MG/DL (70-100); POTASSIUM SERUM 4.2 MEQ/L (3.5-5.1); SODIUM LEVEL 135 MEQ/L (136-145); TOTAL PROTEIN 7.1 GM/DL (6.4-8.2)
[2021-06-19 16:09] LABS: ATYPICAL LYMPH 7 % (0-5); EOSINOPHILS 1 % (0-3); LYMPHOCYTES 42 % (16-44); MONOCYTES 3 % (0-5); NEUTROPHILS 47 % (28-66)
[2021-06-19 16:12] LABS: PLATELET ESTIMATE NORMAL (NORMAL)
== END ==
LOC: M PLALAB 13:58
PROVIDERS: ATTEND Internal Medicine Hematology & Oncology
DX: C50.911 Malignant neoplasm of unspecified site of right female breast (principal)

== ENCOUNTER → 2021-07-16 | Outpatient (CLI) | payer MEDICARE, MEDICAID ==
[~2021-07-16] MED LIST changes: +TAMO20TA8 PO
[2021-07-16 11:08] LABS: BASO # 0.1 10^3/uL (0.0-0.2); BASO % 0.4 % (0.0-1.0); EOS # 0.1 10^3/uL (0.0-0.5); EOS % 1.2 % (0.0-3.0); HEMATOCRIT 40.5 % (36.0-47.0); HEMOGLOBIN 13.1 g/dl (12.0-15.5); LYMPH # 3.3 10^3/uL (1.5-5.0); LYMPH % 29.5 % (24.0-44.0); MEAN CORPUSCULAR HEMOGLOBIN 28.4 pg (27.0-33.0); MEAN CORPUSCULAR HGB CONC 32.3 g/dl (32.0-36.5); MEAN CORPUSCULAR VOLUME 87.9 fl (80.0-96.0); MONO # 0.7 10^3/uL (0.0-0.8); MONO % 6.3 % (2.0-8.0); NEUTROPHILS # 6.9 10^3/uL (1.5-8.5); NEUTROPHILS % 62.2 % (36.0-66.0); PLATELET COUNT, AUTOMATED 244 10^3/uL (150-450); RED BLOOD COUNT 4.61 10^6/uL (4.00-5.40); WHITE BLOOD COUNT 11.1 10^3/uL (4.0-10.0)
[2021-07-16 11:41] LABS: ALBUMIN 3.5 GM/DL (3.2-5.2); ALT/SGPT 28 U/L (12-78); BILIRUBIN,TOTAL 0.3 MG/DL (0.2-1.0); BLOOD UREA NITROGEN 13 MG/DL (7-18); CALCIUM LEVEL 9.6 MG/DL (8.5-10.1); CARBON DIOXIDE LEVEL 25 MEQ/L (21-32); CHLORIDE LEVEL 107 MEQ/L (98-107); CREATININE FOR GFR 0.76 MG/DL (0.55-1.30); GLOMERULAR FILTRATION RATE > 60.0 (>51); GLUCOSE, FASTING 114 MG/DL (70-100); POTASSIUM SERUM 3.9 MEQ/L (3.5-5.1); SODIUM LEVEL 138 MEQ/L (136-145); TOTAL PROTEIN 6.7 GM/DL (6.4-8.2)
== END ==
LOC: M PLALAB 08:39
PROVIDERS: ATTEND Internal Medicine Medical Oncology
DX: C50.919 Malignant neoplasm of unspecified site of unspecified female breast (principal)

== ENCOUNTER → 2021-07-22 | Outpatient (CLI) | payer MEDICARE, MEDICAID ==
--- NOTE | 2021-07-22 12:31 | RADONC.CN ---
Radiation Oncology Hx/Consult Radiation Oncology Consult Date of Service: Jul 22, 2021 Pt Identifier Gretchen Doherty is a 56 year old female with screening mammogram detected right breast cancer pT2N0(sn)M0 ER/FL+ HER2- grade 2 oncotype 15. She is s/p lumpectomy SLNB and oncoplasty with Drs. Hurtado and Pritesh on 06/05/21. She is seen for consideration of adjuvant RT. Diagnosis/Treatment History Oncologic History 02/26/21 Mammogram with right upper outer breast abnormality. 03/07/21 Diagnostic with 2.6 cm spiculated right breast mass 03/26/21 US biopsy showing IDC grade 2 ER/FL+ HER2- 04/04/21 MRI with left breast lesion 06/05/21 BL lumpectomy/oncoplasty right breast pT2N0(sn) margins negative, left breast ADH no malignancy Breast history: 1st @ 44 Menses @ 14 Perimenopausal No OCP No HRT No IVF Interval History Reports she feels well, no residual post-operative pain or swelling. She has full ROM BL arms. No swelling in either arms. She has good appetite and energy levels. She is a mother of 2. Past Medical History: Anxiety Lumbar disc disease HTN Seasonal allergies Past Surgical History: C section D&C Spinal fusion Tonsillectomy Family History: Maternal aunt liver cancer Maternal uncle brain and liver cancer Social History: Current 1 ppd smoker for 42 years Never drinker Allergies / Meds Allergies: Coded Allergies: codeine (Verified Allergy, Intermediate, hives, 05/29/21) amitriptyline (Verified Adverse Reaction, Mild, irritable, 05/29/21) duloxetine (Verified Adverse Reaction, Mild, irritable, 05/29/21) Home Meds Active Scripts Tamoxifen Citrate (Tamoxifen Citrate) 20 Mg Tablet, 1 TAB PO DAILY for 30 Days, #30 TAB 2 Refills Prov:FRANCOISE BLOUNT MD FACP 07/17/21 Reported Medications Multivitamins (Thera M Plus Tablet) 1 Each Tablet, 1 TAB PO DAILY, TAB 05/29/21 Loratadine (Loratadine) 10 Mg Tablet, 10 MG PO DAILY, TAB 05/29/21 Fluticasone Propionate (Flonase Allergy Relief) 9.9 Ml Rosine.susp, 50 MCG NA DAILY, SPR 05/29/21 Spironolactone (Spironolactone) 25 Mg Tablet, 25 MG PO DAILY, TAB 05/29/21 Omeprazole (Omeprazole) 20 Mg Capsule.dr, 20 MG PO DAILY, CAP 05/29/21 Lisinopril (Lisinopril) 20 Mg Tablet, 20 MG PO DAILY, TAB 05/29/21 Chlorthalidone (Chlorthalidone) 25 Mg Tablet, 12.5 MG PO DAILY, HALFTAB 05/29/21 Atorvastatin Calcium (Atorvastatin Calcium) 40 Mg Tablet, 1 TAB PO DAILY for 30 Days, #30 TAB 02/21/21 Carvedilol (Carvedilol) 25 Mg Tablet, 1 TAB PO DAILY for 30 Days, #60 TAB 02/21/21 Gabapentin (Neurontin) 300 Mg Cap, 1 CAP PO TID 01/04/18 Albuterol Sulfate (Proair Hfa) 108 Mcg/Act Aer, 108 MCG IN Q4HP PRN for CONGESTION, AER 03/06/14 Review of Systems Constitutional: Denies: Fever, Fatigue, Weight Loss Eyes: Denies: Pain HEENT: Denies: Head Aches Skin: Denies: Rash Pulmonary: Denies: Dyspnea, Cough Cardiovascular: Denies: Chest Pain Breast: Denies: New Breast Lumps / Masses, Nipple Retraction, Nipple Discharge, Breast Skin Changes, Breast Pain or Tenderness Gastrointestinal: Denies: Abdominal Pain Musculoskeletal: Denies: Neck pain, Back pain Neurological: Denies: Weakness, Numbness Psych: Reports: Mood Normal Vital Signs Wt 186 lbs T 96.2 P 70 RR 18 BP 131/86 O2 100% Pain 0 Fatigue 0 General Exam: Alert, Cooperative, No Acute Distress Eye Exam: PERRLA, EOMI ENT EXAM: Atraumatic Neck Exam: Supple; Negative: Lymphadenopathy Chest Exam: Clear to auscultation Heart Exam: Rate Normal Breast Exam: Symmetric Bilaterally (Mastopext incisions well healed, palable surgical site central right breast); Negative: Lumps or Masses, Nipple Retraction, Skin Changes Extremity Exam: Negative: Edema Neuro Exam: Normal Gait, Normal Speech, Cranial Nerves 3-12 NL Psych Exam: Mental status NL, Mood NL Diagnostic and Laboratory Diagnostic Review Radiologic images, relevant labs and pathology reports were personally reviewed and discussed with Ms. Doherty. Assessment and Plan Impression Ms. Doherty is a 56 year old female with a history of screening mammogram detected right breast cancer pT2N0(sn)M0 ER/FL+ HER2- grade 2 oncotype 15. She is s/p lumpectomy SLNB and oncoplasty with Drs. Hurtado and Pritesh on 06/05/21. She is seen for consideration of adjuvant RT. Stage Right upper outer breast cancer pT2N0(sn)M0 ER/FL+ HER2- grade 2 oncotype 15 stage IA Performance Status ECOG 0 Plan We had an extensive discussion with Ms. Doherty regarding the diagnosis at hand and available therapeutic options. She has healed well from her surgery. No residual discomfort, swelling or functional impairment. Her tumor was T2 by size, margins were widely negative. The left breast lesion was negative for DCIS or malignancy. Given this and her young age I recommend standard right breast WBI 40 Gy in 15 fractions + 10 Gy in 5 fraction tumor bed boost. I will use 3D planning and MV imaging for the whole breast phase and daily CBCT to localize the tumor bed during the boost phase. We discussed the logistics of receiving radiation therapy in detail including the need for a 1-time planning session. This can occur next week as she is well- healed. We reviewed the side effects of treatment including fatigue, skin reaction, and fibrosis. After discussing the risks, benefits and alternatives to radiation therapy, Ms. Doherty was amenable to pursuing radiotherapy. All questions were answered to the patient's satisfaction. We instructed the patient that if there were any questions,concerns or changes in clinical status in the interim to contact us. Recommendations Right WBI 40 Gy in 15 fractions + 10 Gy in 5 fraction tumor bed boost Simulation next week Billing Statement Total time of [46] minutes was spent preparing for the visit [3], obtaining HPI [6], examining the patient [5], reviewing diagnostic tests [3], discussing management options [20], coordinating care [2], and writing this note [7]. GHULAM GUIDRY MD Jul 22, 2021 12:31
== END ==
LOC: M ONCR 10:56
PROVIDERS: ATTEND General Practice
DX: C50.411 Malignant neoplasm of upper-outer quadrant of right female breast (principal); F17.210 Nicotine dependence, cigarettes, uncomplicated; Z88.5 Allergy status to narcotic agent

== ENCOUNTER → 2021-08-19 | Outpatient (RCR) | payer MEDICARE, MEDICAID | LOC: M ONCR 07-31 10:39 | PROVIDERS: ATTEND General Practice | DX: C50.411 Malignant neoplasm of upper-outer quadrant of right female breast (principal) ==

== ENCOUNTER 2021-09-10 09:02 | Outpatient (RCR) | payer MEDICARE, MEDICAID | END 2021-09-19 | LOC: M ONCR 09:02 | PROVIDERS: ATTEND General Practice | DX: C50.411 Malignant neoplasm of upper-outer quadrant of right female breast (principal); N64.59 Other signs and symptoms in breast ==

== ENCOUNTER → 2021-12-05 | Outpatient (CLI) | payer MEDICARE, MEDICAID ==
[2021-12-05 10:03] LABS: BASO # 0.1 10^3/uL (0.0-0.2); BASO % 0.5 % (0.0-1.0); EOS # 0.1 10^3/uL (0.0-0.5); HEMATOCRIT 41.9 % (36.0-47.0); HEMOGLOBIN 13.8 g/dl (12.0-15.5); LYMPH # 2.3 10^3/uL (1.5-5.0); LYMPH % 22.8 % (24.0-44.0); MEAN CORPUSCULAR HEMOGLOBIN 28.8 pg (27.0-33.0); MEAN CORPUSCULAR HGB CONC 32.9 g/dl (32.0-36.5); MEAN CORPUSCULAR VOLUME 87.3 fl (80.0-96.0); MONO # 0.6 10^3/uL (0.0-0.8); MONO % 6.1 % (2.0-8.0); NEUTROPHILS # 6.8 10^3/uL (1.5-8.5); NEUTROPHILS % 69.1 % (36.0-66.0); PLATELET COUNT, AUTOMATED 224 10^3/uL (150-450); WHITE BLOOD COUNT 9.9 10^3/uL (4.0-10.0)
[2021-12-05 10:36] LABS: BLOOD UREA NITROGEN 16 MG/DL (7-18); CALCIUM LEVEL 9.5 MG/DL (8.5-10.1); CARBON DIOXIDE LEVEL 27 MEQ/L (21-32); CHLORIDE LEVEL 105 MEQ/L (98-107); CREATININE FOR GFR 0.81 MG/DL (0.55-1.30); GLOMERULAR FILTRATION RATE > 60.0 (>51); GLUCOSE, FASTING 126 MG/DL (70-100); POTASSIUM SERUM 4.2 MEQ/L (3.5-5.1); SODIUM LEVEL 138 MEQ/L (136-145)
[2021-12-05 10:37] LABS: ALBUMIN 3.7 GM/DL (3.2-5.2); ALT/SGPT 33 U/L (12-78); BILIRUBIN,TOTAL 0.3 MG/DL (0.2-1.0)
[2021-12-08 09:05] LABS: F8 ACTIVITY FOR F8 PANEL 81 % (56-140); F8 ACTIVITY vWB FOR F8 PANEL 83 % (50-200); F8 ANTIGEN FOR F8 PANEL 94 % (50-200)
== END ==
LOC: M PLALAB 08:54
PROVIDERS: ATTEND Internal Medicine Medical Oncology
DX: C50.411 Malignant neoplasm of upper-outer quadrant of right female breast (principal); Z68.31 Body mass index [BMI] 31.0-31.9, adult; Z79.899 Other long term (current) drug therapy

== ENCOUNTER → 2021-12-05 | Outpatient (CLI) | payer MEDICARE, MEDICAID ==
[2021-12-05 10:26] LABS: HEMOGLOBIN A1c 5.8 %
[2021-12-05 10:43] LABS: CHOLESTEROL RISK RATIO 5.758 (<5)
== END ==
LOC: M PLALAB 08:56
PROVIDERS: ATTEND Nurse Practitioner Family
DX: Z79.899 Other long term (current) drug therapy (principal); Z68.31 Body mass index [BMI] 31.0-31.9, adult

== ENCOUNTER → 2022-03-02 | Outpatient (CLI) | payer MEDICARE, MEDICAID | LOC: M WHC 09:35 | PROVIDERS: ATTEND Surgery | DX: Z85.3 Personal history of malignant neoplasm of breast (principal); Z92.3 Personal history of irradiation | CPT/HCPCS: 77066; G0279 ==

== ENCOUNTER → 2022-03-25 | Outpatient (CLI) | payer MEDICARE, MEDICAID | LOC: M ONCR 13:25 | PROVIDERS: ATTEND General Practice | DX: C50.411 Malignant neoplasm of upper-outer quadrant of right female breast (principal); F17.210 Nicotine dependence, cigarettes, uncomplicated; Z92.3 Personal history of irradiation; Z79.51 Long term (current) use of inhaled steroids; Z79.818 Long term (current) use of other agents affecting estrogen receptors and estrogen levels; Z79.899 Other long term (current) drug therapy; Z88.5 Allergy status to narcotic agent; Z88.8 Allergy status to other drugs, medicaments and biological substances ==

== ENCOUNTER → 2022-06-05 | Outpatient (CLI) | payer MEDICARE, MEDICAID | LOC: M PLALAB 09:27 | PROVIDERS: ATTEND Surgery | DX: D05.11 Intraductal carcinoma in situ of right breast (principal) ==

== ENCOUNTER → 2022-08-28 | Outpatient (REF) | payer MEDICARE, MEDICAID ==
[~2022-08-28] MED LIST changes: +ALBU8.5H INH; +ATOR80TA59 PO
[2022-08-28 15:19] LABS: CHOLESTEROL RISK RATIO 4.89 (<5); HDL CHOLESTEROL 28.2 MG/DL (>40); LDL CHOLESTEROL 44.8 MG/DL (<100)
== END ==
LOC: M LAB REF 14:42
PROVIDERS: ATTEND Nurse Practitioner Family
DX: E78.5 Hyperlipidemia, unspecified (principal)

== ENCOUNTER → 2022-09-03 | Outpatient (CLI) | payer MEDICARE, MEDICAID ==
[2022-09-03 17:38] LABS: BLOOD UREA NITROGEN 11 MG/DL (9-23); CALCIUM LEVEL 9.2 MG/DL (8.5-10.1); CARBON DIOXIDE LEVEL 25 MMOL/L (20-31); CHLORIDE LEVEL 109 MMOL/L (98-107); CREATININE FOR GFR 0.77 MG/DL (0.55-1.30); GLOMERULAR FILTRATION RATE > 60.0 (>51); GLUCOSE, FASTING 75 MG/DL (60-100); POTASSIUM SERUM 3.7 MMOL/L (3.5-5.1); SODIUM LEVEL 141 MMOL/L (136-145)
== END ==
LOC: M PLALAB 14:40
PROVIDERS: ATTEND Nurse Practitioner Women's Health
DX: Z01.812 Encounter for preprocedural laboratory examination (principal); N60.92 Unspecified benign mammary dysplasia of left breast; C50.911 Malignant neoplasm of unspecified site of right female breast

== ENCOUNTER → 2022-09-17 | Outpatient (CLI) | payer MEDICARE, MEDICAID ==
[~2022-09-17] MED LIST changes: +PROHANCE 279.3MG/ML 15ML VIAL ONE; +PROHANCE 279.3MG/ML 5ML VIAL ONE
== END ==
LOC: M PLAIMG 14:18
PROVIDERS: ATTEND Nurse Practitioner Women's Health
DX: C50.911 Malignant neoplasm of unspecified site of right female breast (principal); N60.92 Unspecified benign mammary dysplasia of left breast; Z91.89 Other specified personal risk factors, not elsewhere classified
CPT/HCPCS: A9576; C8908

== ENCOUNTER → 2022-10-27 | Outpatient (REF) | payer MEDICARE, MEDICAID ==
[~2022-10-27] MED LIST changes: +GABA-282 PO; +HYDR12.55 PO; +LAMO100T3 PO; +MIRT-11 PO; +OMEP-173 PO; -PROHANCE 279.3MG/ML 15ML VIAL ONE; -PROHANCE 279.3MG/ML 5ML VIAL ONE
== END ==
LOC: M LAB REF 08:52
PROVIDERS: ATTEND Surgery
DX: D17.30 Benign lipomatous neoplasm of skin and subcutaneous tissue of unspecified sites (principal)

== ENCOUNTER → 2022-11-05 | Outpatient (REF) | payer MEDICARE, MEDICAID | LOC: M LAB REF 16:33 | PROVIDERS: ATTEND Surgery | DX: D17.23 Benign lipomatous neoplasm of skin and subcutaneous tissue of right leg (principal) ==

== ENCOUNTER → 2022-11-05 | Outpatient (CLI) | payer MEDICARE, MEDICAID | LOC: M LABSMTC 09:56 | PROVIDERS: ATTEND Anesthesiology | DX: Z01.812 Encounter for preprocedural laboratory examination (principal); Z11.52 Encounter for screening for COVID-19 ==

== ENCOUNTER 2022-11-10 13:09 | Day surgery (SDC) | payer MEDICARE, MEDICAID ==
[~2022-11-10] VITALS: Ht 162.6 cm; Wt 82.7 kg
[~2022-11-10 13:09] MED LIST changes: +NS 1,000 ML IV ONE
[2022-11-10] MEDS ORDERED: IPRATROPIUM 0.5MG/ALBUTEROL 2.5MG INH SOL UD 3ML (DUONEB) NEB ONE (15:00)
[2022-11-10] MEDS ORDERED: BUDESONIDE 0.5 MG/2 ML INHALATION SUSPENSION INH ONE (15:15)
[2022-11-10] MEDS ORDERED: LIDOCAINE 2% 100MG/5ML SDV (FOR ANES.) As Ordered ONE (15:40)
[2022-11-10] MEDS ORDERED: propofoL 200 MG/20 ML VIAL As Ordered ONE ×2 (15:40→16:10)
[2022-11-10 16:35] VITALS: BP 163/92
== END 2022-11-10 16:53 | disposition home or self-care (01) ==
LOC: M OPP 13:09
PROVIDERS: ATTEND Internal Medicine Gastroenterology
DX: D12.5 Benign neoplasm of sigmoid colon (principal); D12.2 Benign neoplasm of ascending colon; K63.5 Polyp of colon; Z15.09 Genetic susceptibility to other malignant neoplasm; I50.9 Heart failure, unspecified; I10 Essential (primary) hypertension; E78.5 Hyperlipidemia, unspecified; D66 Hereditary factor VIII deficiency; F17.200 Nicotine dependence, unspecified, uncomplicated; Z79.02 Long term (current) use of antithrombotics/antiplatelets; Z79.51 Long term (current) use of inhaled steroids; Z79.810 Long term (current) use of selective estrogen receptor modulators (SERMs); Z79.891 Long term (current) use of opiate analgesic; Z79.899 Other long term (current) drug therapy; Z88.5 Allergy status to narcotic agent; Z88.8 Allergy status to other drugs, medicaments and biological substances; Z80.1 Family history of malignant neoplasm of trachea, bronchus and lung; Z80.8 Family history of malignant neoplasm of other organs or systems

== ENCOUNTER 2022-12-08 16:52 | Emergency (ER) | payer MEDICARE, MEDICAID ==
[~2022-12-08] VITALS: Ht 162.6 cm; Wt 83.7 kg
[~2022-12-08 16:52] MED LIST changes: -NS 1,000 ML IV ONE
[2022-12-08 16:54] VITALS: BP 138/86
== END 2022-12-08 17:50 | disposition left against medical advice (07) ==
LOC: M ED 16:52
DX: Z53.21 Procedure and treatment not carried out due to patient leaving prior to being seen by health care provider (principal)

== ENCOUNTER → 2023-02-11 | Outpatient (CLI) | payer MEDICARE, MEDICAID | LOC: M WHC 13:32 | PROVIDERS: ATTEND Internal Medicine Medical Oncology | DX: N93.9 Abnormal uterine and vaginal bleeding, unspecified (principal); C50.919 Malignant neoplasm of unspecified site of unspecified female breast; D25.9 Leiomyoma of uterus, unspecified; N83.202 Unspecified ovarian cyst, left side ==

== ENCOUNTER → 2023-02-23 | Outpatient (REF) | payer MEDICARE, MEDICAID | LOC: M SFHCWAGY 13:11 | PROVIDERS: ATTEND Nurse Practitioner Family | DX: N95.0 Postmenopausal bleeding (principal) ==

== ENCOUNTER → 2023-03-05 | Outpatient (CLI) | payer MEDICARE, MEDICAID ==
[~2023-03-05] MED LIST changes: +PROHANCE 279.3MG/ML 15ML VIAL ONE; +PROHANCE 279.3MG/ML 5ML VIAL ONE
== END ==
LOC: M PLAIMG 08:52
PROVIDERS: ATTEND Nurse Practitioner Family
DX: N95.0 Postmenopausal bleeding (principal); N85.8 Other specified noninflammatory disorders of uterus; N83.201 Unspecified ovarian cyst, right side; N83.202 Unspecified ovarian cyst, left side; N83.8 Other noninflammatory disorders of ovary, fallopian tube and broad ligament
CPT/HCPCS: 72197; A9576

== ENCOUNTER → 2023-03-11 | Outpatient (REF) | payer MEDICARE, MEDICAID ==
[~2023-03-11] MED LIST changes: -PROHANCE 279.3MG/ML 15ML VIAL ONE; -PROHANCE 279.3MG/ML 5ML VIAL ONE
[2023-03-12 11:50] LABS: CARCINOEMBRYONIC ANTIGEN < 2.0 NG/ML (<2.5)
== END ==
LOC: M PLALAB 09:53
PROVIDERS: ATTEND Nurse Practitioner Family
DX: Z12.4 Encounter for screening for malignant neoplasm of cervix (principal); N83.202 Unspecified ovarian cyst, left side
CPT/HCPCS: 36415; 82378; 86301; 86304; 87624; G0123

== ENCOUNTER → 2023-03-16 | Outpatient (CLI) | payer MEDICARE, MEDICAID | LOC: M WHC 11:22 | PROVIDERS: ATTEND Nurse Practitioner Women's Health | DX: C50.911 Malignant neoplasm of unspecified site of right female breast (principal); Z15.01 Genetic susceptibility to malignant neoplasm of breast; N60.92 Unspecified benign mammary dysplasia of left breast; Z91.89 Other specified personal risk factors, not elsewhere classified | CPT/HCPCS: 77066; G0279 ==

== ENCOUNTER → 2023-03-25 | Outpatient (CLI) | payer MEDICARE, MEDICAID | LOC: M ONCR 12:48 | PROVIDERS: ATTEND General Practice | DX: C50.411 Malignant neoplasm of upper-outer quadrant of right female breast (principal); D25.9 Leiomyoma of uterus, unspecified; F17.210 Nicotine dependence, cigarettes, uncomplicated; Z71.2 Person consulting for explanation of examination or test findings; Z79.810 Long term (current) use of selective estrogen receptor modulators (SERMs); Z79.899 Other long term (current) drug therapy; Z79.51 Long term (current) use of inhaled steroids; Z88.5 Allergy status to narcotic agent; Z88.8 Allergy status to other drugs, medicaments and biological substances; Z92.3 Personal history of irradiation; Z98.890 Other specified postprocedural states ==

== ENCOUNTER 2023-06-25 07:52 | Day surgery (SDC) | payer MEDICARE, MEDICAID ==
[~2023-06-25] VITALS: Ht 162.6 cm; Wt 81.2 kg
[~2023-06-25 07:52] MED LIST changes: +FLUT50SP17; +LR 1,000 ML IV SCH; +ceFAZolin SOD 2 GM in IV 1 EA IV ONE; +xyzal PO
[2023-06-25 08:31] LABS: HEMATOCRIT 42.1 % (36.0-47.0); HEMOGLOBIN 14.1 g/dl (12.0-15.5); MEAN CORPUSCULAR HEMOGLOBIN 29.9 pg (27.0-33.0); MEAN CORPUSCULAR HGB CONC 33.5 g/dl (32.0-36.5); MEAN CORPUSCULAR VOLUME 89.2 fl (80.0-96.0); PLATELET COUNT, AUTOMATED 208 10^3/uL (150-450); RED BLOOD COUNT 4.72 10^6/uL (4.00-5.40); WHITE BLOOD COUNT 9.7 10^3/uL (4.0-10.0)
[2023-06-25] MEDS ORDERED: OXYC1TAB23 PO (10:47)
[2023-06-25] MEDS ORDERED: IBUP-1022 PO (10:48)
[2023-06-25] MEDS ORDERED: ACETAMINOPHEN 1000MG 100ML IV BAG As Ordered ONE (11:37)
[2023-06-25] MEDS ORDERED: KETAMINE HCL 200MG/20ML VIAL As Ordered ONE (11:37)
[2023-06-25] MEDS ORDERED: fentaNYL 100 MCG/2 ML INJECTION As Ordered ONE (11:37)
[2023-06-25] MEDS ORDERED: ROCURONIUM BROMIDE 50MG/5ML VIAL As Ordered ONE ×2 (11:37→11:59)
[2023-06-25] MEDS ORDERED: dexmedeTOMIDine (4MCG/ML)200MCG/50ML BTL (PRECEDEX) As Ordered ONE (11:37)
[2023-06-25] MEDS ORDERED: LIDOCAINE 2% 100MG/5ML SDV (FOR ANES.) As Ordered ONE (11:37)
[2023-06-25] MEDS ORDERED: MIDAZOLAM INJ 2MG/2ML VIAL As Ordered ONE (11:37)
[2023-06-25] MEDS ORDERED: propofoL 200 MG/20 ML VIAL As Ordered ONE (11:37)
[2023-06-25] MEDS ORDERED: HYDROmorphone HCL 2MG/ML 1ML VIAL As Ordered ONE (11:39)
[2023-06-25] MEDS ORDERED: KETOROLAC 60MG 2ML VIAL As Ordered ONE (12:23)
[2023-06-25] MEDS ORDERED: ONDANSETRON 4MG 2ML VIAL As Ordered ONE ×2 (12:23→14:04)
[2023-06-25] MEDS ORDERED: SUGAMMADEX SODIUM 500 MG/5 ML VIAL (BRIDION) As Ordered ONE (12:23)
[2023-06-25] MEDS ORDERED: oxyCODONE 5MG TAB PO PRN (12:45)
[2023-06-25] MEDS ORDERED: fentaNYL 100 MCG/2 ML INJECTION IV PRN (12:45)
[2023-06-25] MEDS ORDERED: LR 1,000 ML IV SCH ×2 (12:45→15:00)
[2023-06-25] MEDS ORDERED: ONDANSETRON 4MG 2ML VIAL IV PRN (12:45)
[2023-06-25] MEDS ORDERED: HYDROMORPHONE HCL 0.5 MG/ 0.5 ML SYRINGE IV PRN (12:45)
[2023-06-25 14:06] VITALS: BP 159/88; TEMP 97.2; O2SAT 96
[2023-06-25] MEDS ORDERED: PERCOCET 5MG/325MG TAB PO PRN (15:05)
== END 2023-06-25 14:12 | disposition home or self-care (01) ==
LOC: M SDC 07:52
PROVIDERS: ATTEND Specialist
DX: N83.209 Unspecified ovarian cyst, unspecified side (principal); N93.9 Abnormal uterine and vaginal bleeding, unspecified; I11.9 Hypertensive heart disease without heart failure; E78.5 Hyperlipidemia, unspecified; K21.9 Gastro-esophageal reflux disease without esophagitis; I50.9 Heart failure, unspecified; F17.218 Nicotine dependence, cigarettes, with other nicotine-induced disorders; F31.9 Bipolar disorder, unspecified; F43.10 Post-traumatic stress disorder, unspecified; F41.9 Anxiety disorder, unspecified; F32.A Depression, unspecified; Z79.51 Long term (current) use of inhaled steroids; Z79.899 Other long term (current) drug therapy; Z85.3 Personal history of malignant neoplasm of breast; Z92.21 Personal history of antineoplastic chemotherapy; Z92.3 Personal history of irradiation
CPT/HCPCS: 36415; 58571; 85027; 86850; 86900; 86901; 88307; J0131; J0665; J1100; J1170; J1885; J2250; J2405; J3010; S2900

== ENCOUNTER → 2023-08-25 | Outpatient (CLI) | payer MEDICARE, MEDICAID ==
[~2023-08-25] MED LIST changes: -FLUT50SP17; +FLUTISP; +IBUP-1022 PO; +LETR2.5T2 PO; +LEVOTAB10 PO; -LR 1,000 ML IV SCH; +OXYC1TAB23 PO; -ceFAZolin SOD 2 GM in IV 1 EA IV ONE
== END ==
LOC: M WHC 09:10
PROVIDERS: ATTEND Internal Medicine Medical Oncology
DX: Z13.820 Encounter for screening for osteoporosis (principal); Z85.3 Personal history of malignant neoplasm of breast; Z78.0 Asymptomatic menopausal state

== ENCOUNTER → 2023-10-19 | Outpatient (CLI) | payer MEDICARE, OTHER ==
[~2023-10-19] MED LIST changes: +PROHANCE 279.3MG/ML 15ML VIAL As Ordered ONE; +PROHANCE 279.3MG/ML 5ML VIAL As Ordered ONE
== END ==
LOC: M RAD 08:20
PROVIDERS: ATTEND Nurse Practitioner Women's Health
DX: Z15.01 Genetic susceptibility to malignant neoplasm of breast (principal); Z85.3 Personal history of malignant neoplasm of breast; N60.92 Unspecified benign mammary dysplasia of left breast; Z91.89 Other specified personal risk factors, not elsewhere classified
CPT/HCPCS: A9576; C8908

== ENCOUNTER → 2023-11-01 | Outpatient (REF) | payer MEDICARE, OTHER ==
[~2023-11-01] MED LIST changes: -PROHANCE 279.3MG/ML 15ML VIAL As Ordered ONE; -PROHANCE 279.3MG/ML 5ML VIAL As Ordered ONE
[2023-11-01 14:13] LABS: BASO # 0.1 10^3/uL (0.0-0.2); BASO % 0.5 % (0.0-1.0); EOS # 0.2 10^3/uL (0.0-0.5); EOS % 1.6 % (0.0-3.0); HEMATOCRIT 45.8 % (36.0-47.0); HEMOGLOBIN 14.8 g/dl (12.0-15.5); LYMPH # 2.8 10^3/uL (1.5-5.0); LYMPH % 28.1 % (24.0-44.0); MEAN CORPUSCULAR HEMOGLOBIN 28.5 pg (27.0-33.0); MEAN CORPUSCULAR HGB CONC 32.3 g/dl (32.0-36.5); MEAN CORPUSCULAR VOLUME 88.2 fl (80.0-96.0); MONO # 0.6 10^3/uL (0.0-0.8); MONO % 6.3 % (2.0-8.0); NEUTROPHILS # 6.2 10^3/uL (1.5-8.5); NEUTROPHILS % 63.3 % (36.0-66.0); PLATELET COUNT, AUTOMATED 224 10^3/uL (150-450); RED BLOOD COUNT 5.19 10^6/uL (4.00-5.40); WHITE BLOOD COUNT 9.8 10^3/uL (4.0-10.0)
[2023-11-01 14:17] LABS: ALBUMIN 3.9 G/DL (3.2-5.2); ALKALINE PHOSPHATASE 101 U/L (46-116); ALT/SGPT 24 U/L (7.0-40); AST/SGOT 20 U/L (<34); BILIRUBIN,TOTAL 0.3 MG/DL (0.3-1.2); BLOOD UREA NITROGEN 14 MG/DL (9-23); CALCIUM LEVEL 9.8 MG/DL (8.5-10.1); CARBON DIOXIDE LEVEL 26 MMOL/L (20-31); CHLORIDE LEVEL 106 MMOL/L (98-107); CHOLESTEROL LEVEL 177 MG/DL (<200); CHOLESTEROL RISK RATIO 5.78 (<5); GLOMERULAR FILTRATION RATE > 60.0 (>51); GLUCOSE, FASTING 91 MG/DL (60-100); HDL CHOLESTEROL 30.6 MG/DL (>40); NON-HDL-C 146.4 MG/DL; POTASSIUM SERUM 3.8 MMOL/L (3.5-5.1); SODIUM LEVEL 137 MMOL/L (136-145); TOTAL PROTEIN 7.4 G/DL (5.7-8.2); TRIGLYCERIDES LEVEL 430 MG/DL (<150)
[2023-11-01 14:18] LABS: THYROID STIMULATING HORMONE 1.305 uIU/ML (0.55-4.78); TOTAL 25(OH) VITAMIN D 17.6 NG/ML (20.0-100.0)
== END ==
LOC: M LAB REF 12:37
PROVIDERS: ATTEND Nurse Practitioner Family
DX: E55.9 Vitamin D deficiency, unspecified (principal); E66.9 Obesity, unspecified; Z79.899 Other long term (current) drug therapy

== ENCOUNTER → 2024-02-23 | Outpatient (REF) | payer MEDICARE, MEDICAID ==
[~2024-02-23] MED LIST changes: +THERTAB52 PO
[2024-02-23 14:02] LABS: ALBUMIN 3.8 G/DL (3.2-5.2); ALKALINE PHOSPHATASE 98 U/L (46-116); ALT/SGPT 24 U/L (7.0-40); AST/SGOT 17 U/L (<34); BILIRUBIN,TOTAL 0.3 MG/DL (0.3-1.2); BLOOD UREA NITROGEN 11 MG/DL (9-23); CALCIUM LEVEL 9.5 MG/DL (8.5-10.1); CARBON DIOXIDE LEVEL 26 MMOL/L (20-31); CHLORIDE LEVEL 104 MMOL/L (98-107); CHOLESTEROL LEVEL 158 MG/DL (<200); CHOLESTEROL RISK RATIO 5.76 (<5); CREATININE FOR GFR 0.86 MG/DL (0.55-1.30); GLOMERULAR FILTRATION RATE > 60.0 (>51); GLUCOSE, FASTING 131 MG/DL (60-100); HDL CHOLESTEROL 27.4 MG/DL (>40); NON-HDL-C 130.6 MG/DL; POTASSIUM SERUM 3.9 MMOL/L (3.5-5.1); SODIUM LEVEL 136 MMOL/L (136-145); TOTAL PROTEIN 6.6 G/DL (5.7-8.2); TRIGLYCERIDES LEVEL 338 MG/DL (<150)
[2024-02-23 14:15] LABS: HEMOGLOBIN A1c 5.9 % (4.0-6.0)
== END ==
LOC: M LAB REF 11:46
PROVIDERS: ATTEND Nurse Practitioner Family
DX: E78.5 Hyperlipidemia, unspecified (principal); K21.9 Gastro-esophageal reflux disease without esophagitis; Z79.899 Other long term (current) drug therapy

== ENCOUNTER → 2024-03-21 | Outpatient (CLI) | payer MEDICARE, MEDICAID | LOC: M WHC 09:24 | PROVIDERS: ATTEND Nurse Practitioner Women's Health | DX: Z85.3 Personal history of malignant neoplasm of breast (principal); R92.313 Mammographic fatty tissue density, bilateral breasts | CPT/HCPCS: 77066; G0279 ==

== ENCOUNTER → 2024-06-22 | Outpatient (REF) | payer MEDICARE, MEDICAID ==
[~2024-06-22] MED LIST changes: +GABA-1172 PO; -GABA-282 PO
[2024-06-22 17:38] LABS: BASO % 0.6 % (0.0-1.0); EOS % 0.2 % (0.0-3.0); HEMATOCRIT 40.9 % (36.0-47.0); HEMOGLOBIN 13.5 g/dl (12.0-15.5); LYMPH # 1.3 10^3/uL (1.5-5.0); LYMPH % 18.8 % (24.0-44.0); MEAN CORPUSCULAR HEMOGLOBIN 29.3 pg (27.0-33.0); MEAN CORPUSCULAR VOLUME 88.9 fl (80.0-96.0); MONO % 14.3 % (2.0-8.0); NEUTROPHILS # 4.4 10^3/uL (1.5-8.5); NEUTROPHILS % 65.8 % (36.0-66.0); PLATELET COUNT, AUTOMATED 172 10^3/uL (150-450); WHITE BLOOD COUNT 6.6 10^3/uL (4.0-10.0)
[2024-06-22 18:17] LABS: ALBUMIN 3.7 G/DL (3.2-5.2); BILIRUBIN,TOTAL 0.4 MG/DL (0.3-1.2); CALCIUM LEVEL 9.8 MG/DL (8.5-10.1); CHOLESTEROL RISK RATIO 6.52 (<5); CREATININE FOR GFR 1.13 MG/DL (0.55-1.30); GLOMERULAR FILTRATION RATE 52.6 (>51); HDL CHOLESTEROL 23.9 MG/DL (>40); LDL CHOLESTEROL 82.9 MG/DL (<100); NON-HDL-C 132.1 MG/DL; POTASSIUM SERUM 3.7 MMOL/L (3.5-5.1); TOTAL PROTEIN 6.9 G/DL (5.7-8.2)
[2024-06-22 19:00] LABS: HEMOGLOBIN A1c 5.7 % (4.0-6.0)
== END ==
LOC: M LAB REF 15:58
PROVIDERS: ATTEND Nurse Practitioner Family
DX: E78.5 Hyperlipidemia, unspecified (principal); E66.9 Obesity, unspecified; Z79.899 Other long term (current) drug therapy

== ENCOUNTER → 2024-07-12 | Outpatient (REF) | payer MEDICARE, MEDICAID ==
[~2024-07-12] MED LIST changes: +OMEG-28; +VITA200032
[2024-07-12 13:50] LABS: CHOLESTEROL LEVEL 226 MG/DL (<200); CHOLESTEROL RISK RATIO 8.07 (<5); TRIGLYCERIDES LEVEL 456 MG/DL (<150)
[2024-07-15 01:12] LABS: SSA SJOGRENS A <1.0 NEG AI (<1.0 NEG); SSB SJOGRENS B <1.0 NEG AI (<1.0 NEG)
== END ==
LOC: M LAB REF 12:24
PROVIDERS: ATTEND Nurse Practitioner Family
DX: R76.8 Other specified abnormal immunological findings in serum (principal); E78.5 Hyperlipidemia, unspecified

== ENCOUNTER → 2024-09-21 | Outpatient (REF) | payer MEDICARE, MEDICAID ==
[~2024-09-21] MED LIST changes: -CYCL5TAB PO; +CYCL5TAB4 PO
[2024-09-21 13:56] LABS: CHOLESTEROL LEVEL 176 MG/DL (<200); CHOLESTEROL RISK RATIO 5.43 (<5); HDL CHOLESTEROL 32.4 MG/DL (>40); NON-HDL-C 143.6 MG/DL; TRIGLYCERIDES LEVEL 452 MG/DL (<150)
== END ==
LOC: M LAB REF 12:55
PROVIDERS: ATTEND Nurse Practitioner Family
DX: E78.5 Hyperlipidemia, unspecified (principal)

== ENCOUNTER → 2024-10-09 | Outpatient (REF) | payer MEDICARE, MEDICAID ==
[2024-10-09 13:15] LABS: C REACTIVE PROTEIN QUANTITATIV 0.52 MG/DL (<1.0); MAGNESIUM LEVEL 2.1 MG/DL (1.8-2.4); PHOSPHORUS LEVEL 3.7 MG/DL (2.5-4.9)
[2024-10-09 13:20] LABS: TOTAL 25(OH) VITAMIN D 54.6 NG/ML (20.0-100.0)
[2024-10-11 13:17] LABS: ANA PATTERN Nuclear, Homogeneous (NEGATIVE); ANA PATTERN 2 Nuclear, Speckled; ANA SCREEN, IFA POSITIVE (NEGATIVE); ANA TITER 1:40 titer (<1:40); ANA TITER 2 1:40 titer (NEGATIVE)
== END ==
LOC: M SFHCRHEU 11:04
PROVIDERS: ATTEND Internal Medicine
DX: M25.50 Pain in unspecified joint (principal); R76.8 Other specified abnormal immunological findings in serum; M79.10 Myalgia, unspecified site; Z79.899 Other long term (current) drug therapy

== ENCOUNTER → 2024-12-22 | Outpatient (CLI) | payer MEDICARE, MEDICAID | LOC: M RAD 10:09 | PROVIDERS: ATTEND Internal Medicine | DX: M25.50 Pain in unspecified joint (principal); M54.9 Dorsalgia, unspecified; M19.041 Primary osteoarthritis, right hand; M19.042 Primary osteoarthritis, left hand; M47.816 Spondylosis without myelopathy or radiculopathy, lumbar region; M47.817 Spondylosis without myelopathy or radiculopathy, lumbosacral region ==

== ENCOUNTER → 2025-03-29 | Outpatient (CLI) | payer MEDICARE, OTHER ==
[~2025-03-29] MED LIST changes: +LIDO1ADH93 TOP; -LIDO5DIS41 TOP
== END ==
LOC: M CARPUL 11:21
PROVIDERS: ATTEND Physician Assistant
DX: Z01.810 Encounter for preprocedural cardiovascular examination (principal); R94.31 Abnormal electrocardiogram [ECG] [EKG]

== ENCOUNTER → 2025-04-03 | Outpatient (CLI) | payer MEDICARE, OTHER ==
[~2025-04-03] MED LIST changes: +ACE65ERTAB PO; +CETI-24 PO; +GABA-1171 PO; -OMEG-28; +OMEG-28 PO; +POTA1TAB23 PO; -VITA200032; +VITA200032 PO
== END ==
LOC: M WHC 08:24
PROVIDERS: ATTEND Internal Medicine Medical Oncology
DX: Z85.3 Personal history of malignant neoplasm of breast (principal); R92.313 Mammographic fatty tissue density, bilateral breasts
CPT/HCPCS: 77066; G0279

== ENCOUNTER → 2025-05-22 | Outpatient (REF) | payer MEDICARE, OTHER, MEDICAID ==
[~2025-05-22] MED LIST changes: -ACE65ERTAB PO; +ACET-1593 PO; -IBUP-1022 PO; +IBUP600T42 PO
[2025-05-22 15:54] LABS: BASO # 0.1 10^3/uL (0.0-0.2); BASO % 0.6 % (0.0-1.0); EOS # 0.1 10^3/uL (0.0-0.5); EOS % 1.4 % (0.0-3.0); LYMPH # 2.8 10^3/uL (1.5-5.0); LYMPH % 32.8 % (24.0-44.0); MONO # 0.5 10^3/uL (0.0-0.8); MONO % 6.3 % (2.0-8.0); NEUTROPHILS # 4.9 10^3/uL (1.5-8.5); NEUTROPHILS % 58.7 % (36.0-66.0); PLATELET COUNT, AUTOMATED 209 10^3/uL (150-450)
[2025-05-22 16:04] LABS: ALT/SGPT 19.0 U/L (7.0-40); AST/SGOT 16.0 U/L (<34); CALCIUM LEVEL 9.8 MG/DL (8.5-10.1); CARBON DIOXIDE LEVEL 27.0 MMOL/L (20-31); CHLORIDE LEVEL 105.0 MMOL/L (98-107); CREATININE FOR GFR 0.81 MG/DL (0.55-1.30); GLOMERULAR FILTRATION RATE 83.6 (>51); MAGNESIUM LEVEL 1.9 MG/DL (1.8-2.4); POTASSIUM SERUM 4.0 MMOL/L (3.5-5.1); SODIUM LEVEL 139.0 MMOL/L (136-145)
[2025-05-22 16:06] LABS: TOTAL 25(OH) VITAMIN D 35.1 NG/ML (20.0-100.0)
[2025-05-22 17:41] LABS: ESTIMATED AVERAGE GLUCOSE 128.0 MG/DL (60-110)
== END ==
LOC: M LAB REF 14:51
PROVIDERS: ATTEND Nurse Practitioner Family
DX: E66.3 Overweight (principal); E55.9 Vitamin D deficiency, unspecified

== ENCOUNTER → 2025-06-21 | Outpatient (CLI) | payer MEDICARE, OTHER | LOC: M CARPUL 07:27 | PROVIDERS: ATTEND Physician Assistant | DX: Z01.810 Encounter for preprocedural cardiovascular examination (principal) ==